=== PATIENT | female | born 1950 | race Caucasian/White ===

== ENCOUNTER 2019-06-06 12:08 | Outpatient (CLI) | payer MEDICARE, SELFPAY ==
--- NOTE | 2019-06-06 14:42 | MM_ITS ---
WS: [id number] DIAGNOSTIC BILATERAL DIGITAL MAMMOGRAM WITH CAD LEFT breast ultrasound, limited HISTORY: LT BREAST CYST COMPARISON: 12/15/2018, 06/10/2018, 05/12/2018, 04/28/2017 TECHNIQUE: Bilateral craniocaudad, mediolateral oblique, and mediolateral views are submitted. Spot c ompression view LEFT cc and MLO. Computer aided detection utilized. Breast composition: There are scattered areas of fibroglandular density. Scattered calcifications. Bi lateral asymmetries within each breast. Ovoid nodule in the anterior LEFT breast near 2:00 is again i dentified. No increase in size of any nodules. Largest nodule measures 7 mm. LEFT breast ultrasound, limited. Ultrasound is directed to the upper outer quadrant of the LEFT breast. There are multiple cysts and c omplex cystic nodules. Hypoechoic nodule which is predominantly solid at 2:00, 3 cm from the nipple m easures 8 x 3 x 7 mm. Corresponds to the abnormality seen on the recent mammogram. There is an additi onal more rounded solid nodule at 2:00, 2 cm from the nipple measuring 8 x 4 x 7 mm. Very hypoechoic taller than wide nodule near the area look 2:00 measures 3 x 2 x 2 mm. No increased vascularity in an y of these nodules. None of these nodules are increasing in size. MM/[place] [id number] IMPRESSION: BI-RADS: 3-Probably Benign FOLLOW UP: 6 Month Follow-up Recommend LEFT breast ultrasound follow-up in 6 months to the upper outer quadr ant. There are multiple nodules which are complex cystic to solid. No increase in size of these nodules. As there are multiple nodules of similar characterist ics these are likely benign. There are some concerning features. Recommend cont inued follow-up. Ultrasound follow-up in 6 months is recommended. If there is a ny increase in size of the solid nodules they should be biopsied by ultrasound.
== END 2019-06-06 12:09 | disposition home or self-care (01) ==
LOC: RADSHAW 12:08
PROVIDERS: Family Provider Nurse Practitioner; PCP Nurse Practitioner; Visit Provider Nurse Practitioner
DX: N60.02 Solitary cyst of left breast (principal)
CPT/HCPCS: 76642; 77066

== ENCOUNTER → 2019-06-26 14:46 | Outpatient (BNVA) | payer MEDICARE, SELFPAY | PROVIDERS: Family Provider Nurse Practitioner; PCP Nurse Practitioner; Visit Provider Nurse Practitioner | DX: E11.9 Type 2 diabetes mellitus without complications (principal); E55.9 Vitamin D deficiency, unspecified; I10 Essential (primary) hypertension; F41.9 Anxiety disorder, unspecified; J30.1 Allergic rhinitis due to pollen; Z23 Encounter for immunization; M19.079 Primary osteoarthritis, unspecified ankle and foot; E78.5 Hyperlipidemia, unspecified; M54.16 Radiculopathy, lumbar region; E03.9 Hypothyroidism, unspecified | CPT/HCPCS: 80053; 82306; 83036 ==

== ENCOUNTER → 2019-12-08 09:17 | Outpatient (BNVA) | payer MEDICARE, SELFPAY | PROVIDERS: Family Provider Nurse Practitioner; PCP Nurse Practitioner; Visit Provider Nurse Practitioner | DX: I10 Essential (primary) hypertension (principal); F41.9 Anxiety disorder, unspecified; J30.1 Allergic rhinitis due to pollen; M19.079 Primary osteoarthritis, unspecified ankle and foot; E55.9 Vitamin D deficiency, unspecified; E78.5 Hyperlipidemia, unspecified; M54.16 Radiculopathy, lumbar region; E03.9 Hypothyroidism, unspecified; E78.1 Pure hyperglyceridemia; E11.65 Type 2 diabetes mellitus with hyperglycemia; F32.9 Major depressive disorder, single episode, unspecified; R82.90 Unspecified abnormal findings in urine | CPT/HCPCS: 80053; 80061; 81003; 82306; 83036; 84443; 87077; 87086; 87184; 87186 ==

== ENCOUNTER 2019-12-22 10:15 | Outpatient (CLI) | payer MEDICARE, SELFPAY ==
--- NOTE | 2019-12-22 11:00 | US_ITS ---
WS: [id number] ULTRASOUND BREAST LEFT TECHNIQUE: Ultrasound left breast focused area of concern. CLINICAL INFORMATION: recheck left breast COMPARISON: June 06, 2019 and . June 08, 2018 FINDINGS: Ultrasound left breast upper-outer quadrant. Again seen are several cystic and solid hypoechoic lesio ns with a few septations. Largest solid lesion measures approximately 8.2 x 3.6 x 7.3 mm at the 2:00 position 2 cm from the nip ple. This is unchanged since June 06, 2019. Remainder of the lesions have a cystic or complex cys tic appearance. Recommend additional six-month ultrasound follow-up to confirm stability. US/US breast LT limited* [id number] IMPRESSION: BI-RADS 3 probably benign Recommend 6 month left breast ultrasound follow-up
== END 2019-12-22 10:16 | disposition home or self-care (01) ==
LOC: RADSHAW 10:17
PROVIDERS: PCP Nurse Practitioner; Visit Provider Nurse Practitioner
DX: R92.8 Other abnormal and inconclusive findings on diagnostic imaging of breast (principal); N60.02 Solitary cyst of left breast
CPT/HCPCS: 76642

== ENCOUNTER → 2020-05-21 13:59 | Outpatient (BNVA) | payer MEDICARE, SELFPAY | PROVIDERS: PCP Nurse Practitioner; Visit Provider Nurse Practitioner | DX: E11.65 Type 2 diabetes mellitus with hyperglycemia (principal); I10 Essential (primary) hypertension; J30.1 Allergic rhinitis due to pollen; F41.9 Anxiety disorder, unspecified; E55.9 Vitamin D deficiency, unspecified; E03.9 Hypothyroidism, unspecified; M19.079 Primary osteoarthritis, unspecified ankle and foot; E78.1 Pure hyperglyceridemia; M54.16 Radiculopathy, lumbar region | CPT/HCPCS: 80053; 81000; 82306; 83036; 84443 ==

== ENCOUNTER 2020-07-10 14:05 | Outpatient (CLI) | payer MEDICARE, MEDICAID, SELFPAY ==
--- NOTE | 2020-07-10 14:13 | MM_ITS ---
WS: [id number] DIAGNOSTIC BILATERAL DIGITAL MAMMOGRAM WITH CAD LEFT breast ultrasound, limited HISTORY: N60.02 - Solitary cyst of left breast COMPARISON: 06/06/2019, 12/15/2018, 05/12/2018, 06/10/2018 TECHNIQUE: Bilateral craniocaudad, mediolateral oblique, and mediolateral views are submitted. Spot c ompression LEFT MLO. Computer aided detection utilized. Breast composition: There are scattered areas of fibroglandular density. Scattered calcifications within each breast. 6 mm asymmetry seen in the upper outer quadrant of the L EFT breast anteriorly corresponds to the area seen on the prior exams. No increase in size. No new no dules. LEFT breast ultrasound, limited. There are several complex cystic nodules in the LEFT breast at 2:00 which have been previously descri bed. The largest measures 6 x 8 x 4 mm and very similar in appearance to the prior study. There is no shadowing. Suspect these changes are all related to fibrocystic breast disease. MM/[place] [id number] IMPRESSION: BI-RADS: 2-Benign FOLLOW UP: 1 Year Follow-up Asymmetries and complex cystic nodules in the LEFT breast have been stable sin e 06/10/2018. Due to long-term stability recommend yearly annual mammographic fo llow-up.
--- NOTE | 2020-07-10 15:00 | US_ITS ---
WS: [id number] DIAGNOSTIC BILATERAL DIGITAL MAMMOGRAM WITH CAD LEFT breast ultrasound, limited HISTORY: N60.02 - Solitary cyst of left breast COMPARISON: 06/06/2019, 12/15/2018, 05/12/2018, 06/10/2018 TECHNIQUE: Bilateral craniocaudad, mediolateral oblique, and mediolateral views are submitted. Spot c ompression LEFT MLO. Computer aided detection utilized. Breast composition: There are scattered areas of fibroglandular density. Scattered calcifications within each breast. 6 mm asymmetry seen in the upper outer quadrant of the L EFT breast anteriorly corresponds to the area seen on the prior exams. No increase in size. No new no dules. LEFT breast ultrasound, limited. There are several complex cystic nodules in the LEFT breast at 2:00 which have been previously descri bed. The largest measures 6 x 8 x 4 mm and very similar in appearance to the prior study. There is no shadowing. Suspect these changes are all related to fibrocystic breast disease. US/US breast LT limited* [id number] IMPRESSION: BI-RADS: 2-Benign FOLLOW UP: 1 Year Follow-up Asymmetries and complex cystic nodules in the LEFT breast have been stable sin e 06/10/2018. Due to long-term stability recommend yearly annual mammographic fo llow-up.
== END 2020-07-10 14:06 | disposition home or self-care (01) ==
LOC: RADSHAW 14:11
PROVIDERS: PCP Nurse Practitioner; Visit Provider Nurse Practitioner
DX: N60.02 Solitary cyst of left breast (principal); N64.89 Other specified disorders of breast; N63.21 Unspecified lump in the left breast, upper outer quadrant
CPT/HCPCS: 76642; 77066

== ENCOUNTER → 2020-08-20 13:17 | Outpatient (BNVA) | payer MEDICARE, MEDICAID, SELFPAY | PROVIDERS: PCP Nurse Practitioner; Visit Provider Nurse Practitioner | DX: E11.65 Type 2 diabetes mellitus with hyperglycemia (principal); E03.9 Hypothyroidism, unspecified; E55.9 Vitamin D deficiency, unspecified; I10 Essential (primary) hypertension; J30.1 Allergic rhinitis due to pollen; F41.9 Anxiety disorder, unspecified; M19.079 Primary osteoarthritis, unspecified ankle and foot; E78.1 Pure hyperglyceridemia; M54.16 Radiculopathy, lumbar region | CPT/HCPCS: 80053; 80061; 82306; 83036; 84443 ==

== ENCOUNTER → 2020-11-19 14:34 | Outpatient (BNVA) | payer MEDICARE, MEDICAID, SELFPAY | PROVIDERS: PCP Nurse Practitioner; Visit Provider Nurse Practitioner | DX: E03.9 Hypothyroidism, unspecified (principal); E11.65 Type 2 diabetes mellitus with hyperglycemia; E55.9 Vitamin D deficiency, unspecified; M19.079 Primary osteoarthritis, unspecified ankle and foot; J30.1 Allergic rhinitis due to pollen; I10 Essential (primary) hypertension; F41.9 Anxiety disorder, unspecified; E78.1 Pure hyperglyceridemia | CPT/HCPCS: 80053; 80061; 82306; 83036; 84443; 85025 ==

== ENCOUNTER → 2021-02-17 14:01 | Outpatient (BNVA) | payer MEDICARE, MEDICAID, SELFPAY | PROVIDERS: PCP Nurse Practitioner; Visit Provider Nurse Practitioner | DX: E11.65 Type 2 diabetes mellitus with hyperglycemia (principal) | CPT/HCPCS: 80053; 83036 ==

== ENCOUNTER → 2021-04-01 10:52 | Outpatient (BNVA) | payer MEDICARE, SELFPAY | PROVIDERS: PCP Nurse Practitioner; Visit Provider Nurse Practitioner | DX: Z20.822 Contact with and (suspected) exposure to COVID-19 (principal) | CPT/HCPCS: 87635 ==

== ENCOUNTER 2021-04-03 08:28 | Outpatient (CLI) | payer MEDICARE, SELFPAY ==
[2021-04-03 08:39] VITALS: BP 120/72; PULSE 72; RESP 21; TEMP 36.4; O2SAT 95; BMI 35.7
[2021-04-03 10:00] VITALS: BP 108/70; PULSE 63; RESP 17; TEMP 36.2; O2SAT 93
[2021-04-03 10:53] VITALS: BP 98/60; PULSE 70; RESP 17; TEMP 36.2; O2SAT 95
== END 2021-04-03 08:29 | disposition home or self-care (01) ==
PROVIDERS: PCP Nurse Practitioner; Visit Provider Nurse Practitioner
DX: U07.1 COVID-19 (principal)
CPT/HCPCS: 96365

== ENCOUNTER → 2021-06-09 14:55 | Outpatient (BNVA) | payer MEDICARE, MEDICAID, SELFPAY | PROVIDERS: PCP Nurse Practitioner; Visit Provider Nurse Practitioner | DX: E11.65 Type 2 diabetes mellitus with hyperglycemia (principal); I10 Essential (primary) hypertension; J43.9 Emphysema, unspecified; M19.079 Primary osteoarthritis, unspecified ankle and foot; F41.9 Anxiety disorder, unspecified; E55.9 Vitamin D deficiency, unspecified; E78.1 Pure hyperglyceridemia; M54.16 Radiculopathy, lumbar region; E03.9 Hypothyroidism, unspecified; J30.1 Allergic rhinitis due to pollen | CPT/HCPCS: 80053; 80061; 82306; 83036; 84443 ==

== ENCOUNTER → 2021-08-20 10:42 | Outpatient (BNVA) | payer MEDICARE, MEDICAID, SELFPAY | PROVIDERS: PCP Nurse Practitioner; Visit Provider Nurse Practitioner | DX: E11.65 Type 2 diabetes mellitus with hyperglycemia (principal); E55.9 Vitamin D deficiency, unspecified; E03.9 Hypothyroidism, unspecified | CPT/HCPCS: 80053; 80061; 82306; 83036; 84443 ==

== ENCOUNTER 2021-09-04 13:39 | Outpatient (CLI) | payer MEDICARE, SELFPAY ==
--- NOTE | 2021-09-04 13:54 | MM_ITS ---
WS: [id number] Bilateral screening 3D tomosynthesis digital mammogram, 09/04/2021 Clinical Data: SCREENING Comparison: 07/10/2020, 06/06/2019, 12/15/2018, 06/10/2018, 05/12/2018, 04/28/2017, 03/25/2016, 02/26/2015, 02/13/2015, 12/28/2013, 09/15/2012, 04/29/2011, 04/09/2011, 02/04/2029, 01/18/2028, 01/07/2007. Findings: The breast parenchymal pattern shows glandular tissue No spiculated masses or clustered calcification s are seen. There are no secondary signs of carcinoma. There are scattered benign calcifications in b oth breasts more on the right. There are multiple moles on the breasts. MM/[place] [id number] Impression: 1. Negative bilateral mammogram unchanged. 2. Recommend annual screening mammograms. BIRADS: 1-Negative FOLLOW UP: 1 Year Follow-up The CAD color checker roving or yarn was used.
== END 2021-09-04 13:40 | disposition home or self-care (01) ==
PROVIDERS: PCP Nurse Practitioner; Visit Provider Nurse Practitioner
DX: Z12.31 Encounter for screening mammogram for malignant neoplasm of breast (principal)
CPT/HCPCS: 77063; 77067

== ENCOUNTER → 2021-12-16 10:52 | Outpatient (BNVA) | payer MEDICARE, MEDICAID, SELFPAY | PROVIDERS: PCP Nurse Practitioner; Visit Provider Nurse Practitioner | DX: E11.65 Type 2 diabetes mellitus with hyperglycemia (principal); I10 Essential (primary) hypertension; E55.9 Vitamin D deficiency, unspecified; J43.9 Emphysema, unspecified; M19.079 Primary osteoarthritis, unspecified ankle and foot; F41.9 Anxiety disorder, unspecified; E78.1 Pure hyperglyceridemia; M54.16 Radiculopathy, lumbar region; E03.9 Hypothyroidism, unspecified; J30.1 Allergic rhinitis due to pollen | CPT/HCPCS: 80053; 80061; 82306; 83036; 84443; 85025 ==

== ENCOUNTER → 2022-03-10 13:45 | Outpatient (BNVA) | payer MEDICARE, MEDICAID, SELFPAY | PROVIDERS: PCP Nurse Practitioner; Visit Provider Nurse Practitioner | DX: E03.9 Hypothyroidism, unspecified (principal); J43.9 Emphysema, unspecified; E55.9 Vitamin D deficiency, unspecified; E11.65 Type 2 diabetes mellitus with hyperglycemia | CPT/HCPCS: 80053; 80061; 82306; 83036; 84443 ==

== ENCOUNTER → 2022-06-02 13:16 | Outpatient (BNVA) | payer MEDICARE, MEDICAID, SELFPAY | PROVIDERS: PCP Nurse Practitioner; Visit Provider Nurse Practitioner | DX: E03.9 Hypothyroidism, unspecified (principal); E11.65 Type 2 diabetes mellitus with hyperglycemia; E55.9 Vitamin D deficiency, unspecified | CPT/HCPCS: 80053; 80061; 82306; 83036; 84443 ==

== ENCOUNTER → 2022-06-23 09:41 | Outpatient (BNVA) | payer MEDICARE, MEDICAID, SELFPAY | PROVIDERS: PCP Nurse Practitioner; Visit Provider Nurse Practitioner | DX: M19.079 Primary osteoarthritis, unspecified ankle and foot (principal); M25.561 Pain in right knee; M25.562 Pain in left knee; M54.16 Radiculopathy, lumbar region | CPT/HCPCS: 85025; 85651; 86038; 86140; 86431 ==

== ENCOUNTER → 2022-08-25 13:53 | Outpatient (BNVA) | payer MEDICARE, MEDICAID, SELFPAY | PROVIDERS: PCP Nurse Practitioner; Visit Provider Nurse Practitioner | DX: E11.65 Type 2 diabetes mellitus with hyperglycemia (principal) | CPT/HCPCS: 80053; 83036 ==

== ENCOUNTER → 2022-09-09 10:39 | Outpatient (BNVA) | payer MEDICARE, MEDICAID, SELFPAY | PROVIDERS: PCP Nurse Practitioner; Visit Provider Internal Medicine Rheumatology | DX: M19.90 Unspecified osteoarthritis, unspecified site (principal); Z79.899 Other long term (current) drug therapy; Z11.59 Encounter for screening for other viral diseases; M45.6 Ankylosing spondylitis lumbar region; M51.37 Other intervertebral disc degeneration, lumbosacral region; M48.07 Spinal stenosis, lumbosacral region; M47.816 Spondylosis without myelopathy or radiculopathy, lumbar region | CPT/HCPCS: 36415; 72100; 72202; 73130; 73562; 73630; 82306; 85651; 86140; 86200; 86480; 86704; 86803; 86812; 87340; 99204 ==

== ENCOUNTER 2022-11-06 14:50 | Outpatient (CLI) | payer MEDICARE, MEDICAID, SELFPAY ==
--- NOTE | 2022-11-06 14:56 | MM_ITS ---
WS: [id number] BILATERAL 3D TOMOSYNTHESIS DIGITAL SCREENING MAMMOGRAPHY WITH CAD CLINICAL INFORMATION: SCREENING HISTORY: Screening mammogram. No current complaints. COMPARISON: 2021 TECHNIQUE: Bilateral CC and MLO views. FINDINGS: Scattered fibroglandular densities bilaterally. No suspicious focal mass, asymmetry, calcifications, or architectural distortion. No evidence of malignancy. Incidental punctate calcifications. Lucent ce ntered calcifications. MM/[place] [id number] IMPRESSION: BI-RADS: 2-Benign FOLLOW UP: 1 Year Follow-up Recommend return to annual screening mammography.
== END 2022-11-06 14:51 | disposition home or self-care (01) ==
LOC: RAD 14:52 → MOBLMAM 14:55
PROVIDERS: PCP Nurse Practitioner; Visit Provider Nurse Practitioner
DX: Z12.31 Encounter for screening mammogram for malignant neoplasm of breast (principal)
CPT/HCPCS: 77063; 77067

== ENCOUNTER → 2022-11-11 13:46 | Outpatient (BNVA) | payer MEDICARE, MEDICAID, SELFPAY | PROVIDERS: PCP Nurse Practitioner; Visit Provider Internal Medicine Rheumatology | DX: Z82.69 Family history of other diseases of the musculoskeletal system and connective tissue; Z79.899 Other long term (current) drug therapy; M19.079 Primary osteoarthritis, unspecified ankle and foot; M25.561 Pain in right knee; M25.562 Pain in left knee; M54.16 Radiculopathy, lumbar region; M25.50 Pain in unspecified joint; Z15.89 Genetic susceptibility to other disease; L40.9 Psoriasis, unspecified; M25.512 Pain in left shoulder | CPT/HCPCS: 36415; 72072; 72100; 73030; 73060; 73562; 80076; 82565; 85025; 86140; 99214 ==

== ENCOUNTER → 2022-11-19 16:18 | Outpatient (BNVA) | payer MEDICARE, MEDICAID, SELFPAY | PROVIDERS: PCP Nurse Practitioner; Visit Provider Nurse Practitioner | DX: E11.65 Type 2 diabetes mellitus with hyperglycemia (principal); E55.9 Vitamin D deficiency, unspecified | CPT/HCPCS: 80053; 80061; 82306; 83036; 84443; 85025 ==

== ENCOUNTER 2022-12-06 23:52 | Inpatient (IN) | payer MEDICARE, MEDICAID, SELFPAY ==
[2022-12-07] VITALS (38 sets, daily range): BP systolic 104–189; BP diastolic 60–111; PULSE 73–93; RESP 16–28; TEMP 36.4–37.3; O2SAT 92–98; BMI 34.7
[2022-12-07 00:53] LABS: Alanine Aminotransferase 25 U/L (0-33); Albumin Level 4.3 g/dL (3.5-5.2); Alkaline Phosphatase 67 U/L (35-105); Anion Gap 23.2 (5-19); Aspartate Amino Transferase 31 U/L (0-32); Blood Urea Nitrogen 14 mg/dL (8-23); Calcium 9.6 mg/dL (8.5-10.5); Carbon Dioxide 21 mmol/L (22-29); Chloride 92 mmol/L (98-107); Globulin 3.3 g/dL (1.3-4.6); Glomerular Filtration Rate 98.8 mL/min (90-130); Glucose 309 mg/dL (65-115); Osmolality Calculated 286 mOsm/kg (285-295); Potassium 4.2 mmol/L (3.5-5.1); Sodium 132 mmol/L (136-145); Total Bilirubin 0.6 mg/dL (0.15-1.2); Total Protein 7.6 g/dL (6.6-8.7)
--- NOTE | 2022-12-07 01:01 | CTR_ITS ---
PROCEDURE INFORMATION: Exam: CT Abdomen And Pelvis With Contrast Exam date and time: 12/07/2022 1:26 AM Age: 71 years old Clinical indication: Nausea and vomiting; Abdominal pain; Prior surgery; Surgery date: 6+ months; Surgery type: Appy. Hysterectomy. Patient HX: Periumbilical pain with n/v. History of ventral hernia. ; Additional info: Abd pain, vomiting, ventral hernia TECHNIQUE: Imaging protocol: Computed tomography of the abdomen and pelvis with contrast. Radiation optimization: All CT scans at this facility use at least one of these dose optimization techniques: automated exposure control; mA and/or kV adjustment per patient size (includes targeted exams where dose is matched to clinical indication); or iterative reconstruction. Contrast material: OMNI 350; Contrast volume: 100 ml; Contrast route: INTRAVENOUS (IV); REPORTING DATA: Count of CT and Cardiac NM exams in prior 12 months: This patient has received 0 known CTs and 0 known cardiac nuclear medicine studies in the 12 months prior to the current study. COMPARISON: CR XR hip LT 2-3V wo/w pel* [id number] 10/26/2017 3:14 PM RADIATION DOSE METRICS: Total DLP (mGy-cm): 925.43 FINDINGS: Lungs: The visualized lung bases are clear. Liver: Liver is large and steatotic. Gallbladder and bile ducts: Absent gallbladder. Pancreas: Unremarkable with no suspicious mass. No ductal dilation. Spleen: The spleen is not enlarged. No suspicious enhancing mass is noted. Adrenal glands: Normal. No mass. Kidneys and ureters: Few minute left renal cysts. No enhancing renal mass or hydronephrosis. Stomach and bowel: Mild sigmoid diverticulosis. Complex ventral hernia seen, which contains a left-sided fat hernia and adjacent right-sided bowel hernia. This appears to be causing a bifc-cg-gyaxpafu grade obstruction and may be incarcerated. The neck is about 3.4 cm wide. Small bowel loops show wall thickening in their mid to distal portion. There are also dilated up to about 3.8 cm. Appendix: No evidence of appendicitis. Intraperitoneal space: Right lower quadrant mesenteric nodularity seen with some calcification. Nodules measure up to about 2.4 cm in size. Retroperitoneal space: Retroperitoneal clips are present. Correlate with surgical history. Vasculature: No AAA or acute vascular lesion identified. Lymph nodes: No enlarged lymph nodes. Urinary bladder: Unremarkable as visualized. Reproductive: Absent uterus. Bones/joints: No acute fracture. Advanced lumbar spine DJD. A couple of levels of minimal chronic listhesis are probably related to facet arthropathy. Soft tissues: Complex ventral hernia seen, which contains a left-sided fat hernia and adjacent right-sided bowel hernia. This appears to be causing a mngs-gr-tmegxnqr grade obstruction and may be incarcerated. The neck is about 3.4 cm wide. Small bowel loops show wall thickening in their mid to distal portion. There are also dilated up to about 3.8 cm. Previous abdominal wall operative findings as well, which does suggest a recurrent hernia at this time. CT/CT abdomen pelvis w con* [id number] IMPRESSION: 1. Complex ventral small bowel containing hernia as described, with evidence of a associated enteritis and small bowel obstruction. Advise surgical consultation. 2. No abscess or free air. 3. Postop findings as described with a few partially calcified mesenteric nodules. These may be due to treated disease such as carcinoid. This requires correlation. 4. Multiple chronic findings above. 5. Call to provider has been initiated. COMMENTS: Consistent with the [employer]'s Incidental Findings Committee white paper (J Am Carrie Radiol 2018): Any incidental renal lesion less than 1 cm or classified as too small to characterize, or any incidental cystic renal lesion characterized as simple-appearing, is likely benign. No follow-up imaging is recommended for these lesions per consensus recommendations based on imaging criteria.
[2022-12-07 01:04] LABS: C Reactive Protein 60.7 mg/L (0.0-4.9); Lipase 50 U/L (13-60)
[2022-12-07] MEDS: sodium chloride 0.9% 1,000 ML 999 ML IV (01:17)
[2022-12-07] MEDS: morphine 4 mg/mL SDV 1 mL 2 MG IVP (01:17)
[2022-12-07] MEDS: ondansetron 2 mg/ML SDV 2 mL 4 MG IVP ×3 (01:17→08:04)
[2022-12-07] MEDS: iohexol 350 mg/mL 500 mL Btl (per mL) IV (01:27)
[2022-12-07 01:28] LABS: Basophils # 0.1 10^3/uL (0.0-0.1); Basophils % 0.5 %; Eosinophils % 0.1 %; Hematocrit 49.2 % (37.0-47.0); Hemoglobin 16.9 g/dL (11.5-15.3); Lymphocytes # 0.6 10^3/uL (0.8-4.8); Lymphocytes % 6.3 %; Mean Corpuscular HGB Conc 34.3 g/dL (30.0-36.0); Mean Corpuscular Hemoglobin 28.6 pg (28.0-34.0); Mean Corpuscular Volume 83.2 fl (81-99); Mean Platelet Volume 10.2 fL (7.4-10.4); Monocytes # 0.5 10^3/uL (0.2-0.9); Monocytes % 5.3 %; Neutrophils % 87.5 %; Nucleated Red Blood Cells % 0 %; Platelet Count 520 10^3/cmm (130-400); Red Blood Count 5.91 10^6/uL (4.1-5.3); Red Cell Distribution Width 12.5 % (12.1-15.1); White Blood Count 9.7 10^3/uL (4.0-10.0)
--- NOTE | 2022-12-07 01:58 | ED_ITS ---
HPI - Abdominal Pain General: Chief Complaint: Abdominal Pain Stated Complaint: abd pain History of Present Illness: 71-year-old female who says she has been sick on and off for couple of weeks. She had vomiting and diarrhea that seem to go away. Today the vomiting came back. She has had several episodes of vomiting. No fever. No diarrhea now. No blood in the vomit. She has had periumbilical and epigastric pain associated with vomiting. She has a ventral hernia, and is concerned her family members. Associated Symptoms: Reports nausea and vomiting; Denies chills, diarrhea, fever(s) and hematochezia Review of Systems Const: Denies: fever(s), chills or body aches Eyes: Denies: change in vision Card: Denies: chest pain or palpitations Resp: Denies: dyspnea, productive cough, non-productive cough or wheezing GI: Reports: abdominal pain, nausea and vomiting; Denies: diarrhea or hematochezia : Denies: difficulty voiding Skin/Breast: Denies: rash Neuro: Denies: headache(s), weakness in extremities, dizziness or confusion PFSH ED PFSH: Medical History Adult hypothyroidism Allergic rhinitis due to pollen Anxiety and depression 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 Chronic left lumbar radiculopathy Chronic low back pain COPD (chronic obstructive pulmonary disease) with emphysema COVID-19 Diabetes mellitus with hyperglycemia, without long-term current use of insulin Enrolled in chronic care management Family history of ankylosing spondylitis HLA B27 (HLA B27 positive) Hyperlipidemia Hypertriglyceridemia Polyarthralgia Primary osteoarthritis, unspecified ankle and foot Psoriasis Vitamin D deficiency, unspecified Surgical History History of appendectomy History of hysterectomy for cancer History of tubal ligation Family History Father Cancer Diabetes CAD (coronary artery disease) Brother Diabetes Daughter Diabetes CAD (coronary artery disease) Rheumatoid arthritis Other Hypertension Denies family history of Lupus Psoriasis Social History Smoking and tobacco status: former smoker Quit status (tobacco): has quit using tobacco Second hand smoke exposure: No Smoking risk assessment/counseling performed?: No Alcohol intake: never Desire information about alcohol rehabilitation?: No Counseling given: No Substance/Drug Use: never Desire information about substance/drug rehabilitation?: No Counseling given: No Adopted: No Caregiver/support person: No Lives independently: Yes Household members: spouse Housing: House Marital status: Number of children: 3 service: No Current occupational status: unemployed Do you think of yourself as: Straight/Heterosexual Current gender identity: Female Physical Exam Const: COMMON NORMALS: no acute distress GENERAL APPEARANCE: cooperative; not ill appearing and not frail appearing HENMT: COMMON NORMALS: normocephalic, atraumatic and Normal external nose present HEAD & SCALP: normocephalic and atraumatic FACE & SINUS: normal facial exam and face symmetric NOSE: Normal external nose present Eye: COMMON NORMALS: Equal, round and reactive pupils present and EOMs intact bilaterally PUPIL: Yes Equal, round and reactive pupils present Neck/C-Spine: GENERAL: Yes trachea midline Chest: CHEST: Yes Symmetrical chest wall rise Resp: COMMON NORMALS: normal respiratory effort, No retractions, No use of accessory muscles and clear to auscultation bilaterally AUSCULTATION: clear to auscultation bilaterally Cardio: COMMON NORMALS: regular rate and regular rhythm RATE: regular rate RHYTHM: regular rhythm GI: AUSCULTATION: Yes normoactive bowel sounds PALPATION: Yes Firmness to palpation present (GI) (At hernia site), Yes Tenderness to palpation present (GI), No Guarding due to palpation present (GI) and No Rigid due to palpation : COMMON NORMALS: Yes no CVA tenderness BLADDER/KIDNEY EXAM: Yes no CVA tenderness Back/Pelvis: COMMON NORMALS: no CVA tenderness Extremity: COMMON NORMALS: no pedal edema Neuro: NIC COMA SCALE: document GCS findings [place] coma scale eye opening: Spontaneous [place] coma scale verbal response: Orientated Nic coma scale motor response: Obey commands Nic coma scale total score: 15 SENSORY EXAM: Yes extremities (intact) Psych: COMMON NORMALS: speech normal SPEECH: Yes normal speech Skin: COMMON NORMALS: no rashes or lesions noted GENERAL SKIN EXAM: no rashes or lesions noted Procedures Procedural Sedation Indication: other (Hernia reduction) ASA Class: II Preparation: groundwater monitoring technician applied, pulse oximeter, supplemental O2 applied, suction/airway equipment at bedside and IV secured Midazolam: IV Midazolam dose (mg): 1 Ketamine: IV Ketamine dose (mg): 140 Patient Tolerated Procedure: well and no complications Complications: none Course Vital Signs: Vital signs: Vital Signs Temperature 98.2 F 12/07/22 00:05 Pulse Rate 86 12/07/22 04:02 Respiratory Rate 16 12/07/22 04:02 Blood Pressure 124/73 12/07/22 04:02 Pulse Oximetry 97 12/07/22 04:02 Oxygen Delivery Me thod Nasal Cannula 12/07/22 04:02 Oxygen Flow Rate 3 12/07/22 04:02 MDM - Abdominal Pain Medical Decision Making 71-year-old female vomiting. White blood cell count is 9.7. Lactic is 3.1. Bicarbonate is 21. Sugar is 309. CT shows small bowel containing ventral hernia with associated enteritis and small bowel obstruction. The patient was mildly consciously sedated with ketamine and Versed. Hernia was partially reduced by myself. NG tube was placed and in position and put to intermittent wall suction. Spoke with surgery. He will see in consultation. Spoke with hospitalist service, they will admit. We will hold the patient in the ER until repeat lactic is resulted. Lab Data 12/07/22 00:15 12/07/22 00:15 Labs/Radiology: Radiology Impressions Abdomen/Pelvis CT 12/07/22 01:01 IMPRESSION: 1. Complex ventral small bowel containing hernia as described, with evidence of a associated enteritis and small bowel obstruction. Advise surgical consultation. 2. No abscess or free air. 3. Postop findings as described with a few partially calcified mesenteric nodules. These may be due to treated disease such as carcinoid. This requires correlation. 4. Multiple chronic findings above. 5. Call to provider has been initiated. COMMENTS: Consistent with the [employer]'s Incidental Findings Committee white paper (J Am Carrie Radiol 2018): Any incidental renal lesion less than 1 cm or classified as too small to characterize, or any incidental cystic renal lesion characterized as simple-appearing, is likely benign. No follow-up imaging is recommended for these lesions per consensus recommendations based on imaging criteria. ADDENDUM: 12/07/22 0221 THIS REPORT CONTAINS FINDINGS THAT MAY BE CRITICAL TO PATIENT CARE. The findings were verbally communicated via telephone conference at 2:19 AM CDT on 12/07/2022 with CHAUNCEY GARDNER. The findings were acknowledged and understood. Chest X-Ray 12/07/22 03:05 IMPRESSION: NGT in place. Laboratory Results WBC 9.7 10^3/uL (4.0-10.0) 12/07/22 00:15 RBC 5.91 10^6/uL (4.1-5.3) H 12/07/22 00:15 Hgb 16.9 g/dL (11.5-15.3) H 12/07/22 00:15 Hct 49.2 % (37.0-47.0) H 12/07/22 00:15 MCV 83.2 fl (81-99) 12/07/22 00:15 MCH 28.6 pg (28.0-34.0) 12/07/22 00:15 MCHC 34.3 g/dL (30.0-36.0) 12/07/22 00:15 RDW 12.5 % (12.1-15.1) 12/07/22 00:15 Plt Count 520 10^3/cmm (130-400) H 12/07/22 00:15 MPV 10.2 fL (7.4-10.4) 12/07/22 00:15 Neut % (Auto) 87.5 % 12/07/22 00:15 Lymph % (Auto) 6.3 % 12/07/22 00:15 [place] % (Auto) 5.3 % 12/07/22 00:15 Eos % (Auto) 0.1 % 12/07/22 00:15 Baso % (Auto) 0.5 % 12/07/22 00:15 Neut # (Auto) 8.50 10^3/uL (1.8-7.7) H 12/07/22 00:15 Lymph # (Auto) 0.6 10^3/uL (0.8-4.8) L 12/07/22 00:15 [place] # (Auto) 0.5 10^3/uL (0.2-0.9) 12/07/22 00:15 Eos # (Auto) 0.0 10^3/uL (0.0-0.8) 12/07/22 00:15 Baso # (Auto) 0.1 10^3/uL (0.0-0.1) 12/07/22 00:15 Nucleated RBC % (auto) 0 % 12/07/22 00:15 Nucleated RBCs # 0.0 /100WBC 12/07/22 00:15 Sodium 132 mmol/L (136-145) L 12/07/22 00:15 Potassium 4.2 mmol/L (3.5-5.1) 12/07/22 00:15 Chloride 92 mmol/L (98-107) L 12/07/22 00:15 Carbon Dioxide 21 mmol/L (22-29) L 12/07/22 00:15 Anion Gap 23.2 (5-19) H 12/07/22 00:15 BUN 14 mg/dL (8-23) 12/07/22 00:15 Creatinine 0.6 mg/dL (0.5-0.9) 12/07/22 00:15 GFR Calculation 98.8 mL/min (90-130) 12/07/22 00:15 Glucose 309 mg/dL (65-115) H 12/07/22 00:15 Calculated Osmolality 286 mOsm/kg (285-295) 12/07/22 00:15 Lactic Acid 3.1 mmol/L (0.5-2.2) H 12/07/22 00:15 Calcium 9.6 mg/dL (8.5-10.5) 12/07/22 00:15 Total Bilirubin 0.6 mg/dL (0.15-1.2) 12/07/22 00:15 AST 31 U/L (0-32) 12/07/22 00:15 ALT 25 U/L (0-33) 12/07/22 00:15 Alkaline Phosphatase 67 U/L (35-105) 12/07/22 00:15 C-Reactive Protein 60.7 mg/L (0.0-4.9) H 12/07/22 00:15 Total Protein 7.6 g/dL (6.6-8.7) 12/07/22 00:15 Albumin 4.3 g/dL (3.5-5.2) 12/07/22 00:15 Globulin 3.3 g/dL (1.3-4.6) 12/07/22 00:15 Lipase 50 U/L (13-60) 12/07/22 00:15 Discharge Plan Discharge Patient Disposition: Admitted As Inpatient Clinical Impression: Small bowel obstruction, Ventral hernia Condition: Serious Prescriptions: No Action Centrum Silver 400-250 mcg tablet,chewable 1 tab PO ONCE aspirin 81 mg tablet,chewable 81 mg PO DAILY zinc 50 mg tablet 50 mg PO DAILY ascorbic acid (vitamin C) 500 mg tablet 500 mg PO DAILY budesonide [Pulmicort] 0.5 mg/2 mL suspension for nebulization 0.5 mg inhalation BID Qty: 60 0RF levalbuterol HCl [Xopenex] 0.63 mg/3 mL solution for nebulization 0.63 mg inhalation TID Qty: 75 2RF clobetasol 0.05 % cream 1 applic topical BID 14 Days Qty: 50 2RF amlodipine 5 mg tablet 5 mg PO QDAY Qty: 30 2RF atenolol 50 mg tablet 50 mg PO BID Qty: 60 2RF budesonide-formoterol [Symbicort] 80-4.5 mcg/actuation HFA aerosol inhaler 2 puff inhalation Q12H Qty: 10.2 2RF celecoxib 100 mg capsule 100 mg PO BID Qty: 60 2RF citalopram [Celexa] 20 mg tablet 20 mg PO BID Qty: 60 2RF ergocalciferol (vitamin D2) 1,250 mcg (50,000 unit) capsule 1,250 mcg PO .weekly Qty: 4 2RF fenofibrate nanocrystallized [Tricor] 145 mg tablet 145 mg PO DAILY Qty: 30 2RF furosemide [Lasix] 20 mg tablet 20 mg PO QAM Qty: 30 2RF gabapentin 800 mg tablet 800 mg PO TID Qty: 90 2RF hydroxyzine pamoate 25 mg capsule 25 mg PO TID PRN (Reason: anxiety) Qty: 90 2RF levothyroxine 50 mcg tablet 50 mcg PO DAILY Qty: 30 2RF loratadine [Claritin] 10 mg tablet 10 mg PO DAILY Qty: 30 2RF montelukast [Singulair] 10 mg tablet 10 mg PO DAILY Qty: 30 2RF potassium chloride 10 mEq capsule, extended release 10 meq PO DAILY Qty: 30 2RF Ozempic 1 mg/dose (4 mg/3 mL) pen injector 1 mg SUBCUT .weekly Qty: 3 2RF (DME) blood-glucose meter [Pureshield Ultra2 Meter] Kit See Rx Instructions .Route Qty: 1 0RF Rx Instructions: As directed (DME) OneTouch Ultra Test Strip See Rx Instructions .Route Qty: 100 5RF Rx Instructions: one daily leflunomide 20 mg tablet 20 mg PO DAILY Qty: 30 3RF Referrals: Karina Funez, [facility] [Primary Care Provider] - Coding Level of Care Code ED Bilingual Patient Support Caseworker for Marysol Muniz
[2022-12-07] MEDS: midazolam 1 mg/mL INJ 2 mL IVP (02:51)
--- NOTE | 2022-12-07 03:05 | XRR_ITS ---
PROCEDURE INFORMATION: Exam: XR Chest Exam date and time: 12/07/2022 3:09 AM Age: 71 years old Clinical indication: Device placement; Ng tube; Patient HX: Check S/P ng placement; Additional info: Nasogastric tube TECHNIQUE: Imaging protocol: Radiologic exam of the chest. Views: 1 view. COMPARISON: CT chest wo con [id number] 03/02/2019 3:06 PM FINDINGS: Tubes, catheters and devices: NGT in place, it coils and stomach. Lungs: Gfji-odqglgw-ibct-right lung base atelectasis or scarring likely. The recent abdomen/pelvis CT showed no lung base infiltrate. Pleural spaces: No pneumothorax. Heart/Mediastinum: Heart is large. Bones/joints: Unremarkable. Organs: Absent gallbladder. XR/XR chest 1V portable [id number] IMPRESSION: NGT in place.
[2022-12-07 03:39] LABS: Lactic Sepsis W/Reflex 3.1 mmol/L (0.5-2.2)
[2022-12-07] MEDS: sodium chloride 0.9% 1,000 ML 150 ML IV (04:46)
[2022-12-07 05:01] LABS: Lactic Sepsis W/Reflex 1.6 mmol/L (0.5-2.2)
--- NOTE | 2022-12-07 06:40 | PM.HP ---
Providers/Chief Complaint Admitting Physician: Heidi Peterson MD Primary Care Provider: Karina Funez, BRODERICK-C Chief Complaint: abd pain History of Present Illness Linda Kelly is a 71 year old female who presented to the emergency room with chief complaint of abdominal pain. She has had a ventral hernia for some time. Every now and then it will protrude but usually reduces and she does not think much about it. Over the last couple of weeks it has been protruding more frequently and she has noticed some abdominal discomfort. The last couple of days this has significantly worsened. Pain was rated severe. She was having vomiting. No blood was noted in the vomitus. Her last bowel movement was maybe Wednesday or of last week. She has chronic constipation so that is not unusual for her. She does not know if she has even been passing any flatus because she has been vomiting so much. With the pain and vomiting she came into the emergency room for evaluation. ER physician was able to partially reduce the ventral hernia. Initial lactate was 3.0. Case was discussed with Dr. Gatica on-call for surgery who will see her. She has had previous hysterectomy, appendectomy and tubal ligation. The ventral hernia appeared, she thinks, after her hysterectomy. No recent new complaints of chest pain. She has been short of breath with the nausea. She has a history of psoriasis on leflunomide chronically with celecoxib. She is chronically on beta-blockade, amlodipine, diuretic therapy and cholesterol medicine. She was unable to keep medications down due to her vomiting. She has not had previous complications from anesthesia or surgeries. She is on Ozempic for her diabetes. She has a history of coronary calcifications noted on CT imaging which is being managed medically. She is being admitted to hospitalist service. Review of Systems General: Reports: Other (ROS as per HPI or as otherwise noted here) Medications/Allergies Home Medications Medication Instructions Recorded Confirmed Last Taken Type multivit with min-folic 1 tab PO QAM 04/25/19 12/07/22 Unknown History acid-lutein 400 mcg-250 mcg chewable tablet (Centrum Silver) ascorbic acid (vitamin C) 500 mg 500 mg PO QAM 10/16/20 12/07/22 Unknown History tablet aspirin 81 mg chewable tablet 81 mg PO QAM 10/16/20 12/07/22 Unknown History atenolol 50 mg tablet 50 mg PO BID #60 tabs 11/19/22 12/07/22 Unknown Rx blood sugar diagnostic (OneTouch #100 ea 11/19/22 12/07/22 Unknown Rx Ultra Test strips) blood-glucose meter (OneTouch #1 ea 11/19/22 12/07/22 Unknown Rx Ultra2 Meter kit) celecoxib 100 mg capsule 100 mg PO BID #60 caps 11/19/22 12/07/22 Unknown Rx citalopram 20 mg tablet (Celexa) 20 mg PO BID #60 tabs 11/19/22 12/07/22 Unknown Rx furosemide 20 mg tablet (Lasix) 20 mg PO QAM #30 tabs 11/19/22 12/07/22 Unknown Rx gabapentin 800 mg tablet 800 mg PO TID #90 tabs 11/19/22 12/07/22 Unknown Rx hydroxyzine pamoate 25 mg capsule 25 mg PO TID PRN anxiety #90 caps 11/19/22 12/07/22 Unknown Rx amlodipine 5 mg tablet 5 mg PO QPM 12/07/22 12/07/22 Unknown History budesonide 0.5 mg/2 mL suspension 0.5 mg inhalation BID PRN unknown 12/07/22 12/07/22 Unknown History for nebulization (Pulmicort) budesonide-formoterol HFA 80 2 puff inhalation Q12H PRN unknown 12/07/22 12/07/22 Unknown History mcg-4.5 mcg/actuation aerosol inhaler (Symbicort) clobetasol 0.05 % topical cream 1 applic topical BID PRN unknown 12/07/22 12/07/22 Unknown History ergocalciferol (vitamin D2) 1,250 1,250 mcg PO Q7D 12/07/22 12/07/22 Unknown History mcg (50,000 unit) capsule fenofibrate nanocrystallized 145 145 mg PO BEDTIME 12/07/22 12/07/22 Unknown History mg tablet (Tricor) leflunomide 20 mg tablet 20 mg PO QAM 12/07/22 12/07/22 Unknown History levalbuterol HCl 0.63 mg/3 mL 0.63 mg inhalation TID PRN unknown 12/07/22 12/07/22 Unknown History solution for nebulization levothyroxine 50 mcg tablet 50 mcg PO QAM 12/07/22 12/07/22 Unknown History loratadine 10 mg tablet (Claritin) 10 mg PO QAM 12/07/22 12/07/22 Unknown History montelukast 10 mg tablet 10 mg PO BEDTIME 12/07/22 12/07/22 Unknown History (Singulair) potassium chloride 10 mEq 10 meq PO QAM 12/07/22 12/07/22 Unknown History capsule,extended release semaglutide 1 mg/dose (4 mg/3 mL) 1 mg SUBCUT Q7D 12/07/22 12/07/22 Unknown History subcutaneous pen injector (Ozempic) zinc acetate 50 mg (zinc) capsule 50 mg PO DAILY 12/07/22 12/07/22 Unknown History Allergies Allergy/AdvReac Type Severity Reaction Status Date / Time LUIS ENRIQUE Inhibitors Allergy UNKNOWN Verified 12/07/22 00:09 albuterol Allergy RAPID PULSE Verified 12/07/22 00:09 ceftriaxone [From Rocephin] Allergy UNKNOWN Verified 12/07/22 00:09 duloxetine [From Cymbalta] Allergy FELT Verified 12/07/22 00:09 STRANGE escitalopram [From Lexapro] Allergy UNKOWN Verified 12/07/22 00:09 ibuprofen Allergy UNKNOWN Verified 12/07/22 00:09 Penicillins Allergy UNKNOWN Verified 12/07/22 00:09 Sulfa (Sulfonamide Allergy UNKNOWN Verified 12/07/22 00:09 Antibiotics) INSECT STINGS Allergy EXCESSIVE Uncoded 12/07/22 00:09 SWELLING PFSH Acute PFSH: Medical History (Updated 12/07/22 @ 08:10 by Heidi Peterson MD) Allergic rhinitis due to pollen Anxiety and depression Atherosclerotic heart disease of [place] coronary artery without angina pectoris Coronary calcifications noted on CT imaging Chronic left lumbar radiculopathy Chronic low back pain COPD (chronic obstructive pulmonary disease) with emphysema COVID-19 (2020) Diabetes mellitus with hyperglycemia, without long-term current use of insulin Family history of ankylosing spondylitis HLA B27 (HLA B27 positive) Hyperlipidemia Hypertension Hypertriglyceridemia Hypothyroidism Polyarthralgia Primary osteoarthritis, unspecified ankle and foot Psoriasis Vitamin D deficiency, unspecified Surgical History History of appendectomy History of hysterectomy for cancer History of tubal ligation Family History Father Cancer Diabetes CAD (coronary artery disease) Brother Diabetes Daughter Diabetes CAD (coronary artery disease) Rheumatoid arthritis Other Hypertension Denies family history of Lupus Psoriasis Social History (Updated 12/07/22 @ 06:45 by Heidi Peterson MD) Smoking and tobacco status: former smoker Quit status (tobacco): has quit using tobacco Second hand smoke exposure: No Alcohol intake: never Substance/Drug Use: never Adopted: No Caregiver/support person: No Lives independently: Yes Household members: spouse Housing: House Marital status: Number of children: 3 service: No Current occupational status: unemployed Do you think of yourself as: Straight/Heterosexual Current gender identity: Female Vitals/I&O/Wt Last Vital Signs Temp 98.2 F 12/07/22 00:05 Pulse 80 12/07/22 06:06 Resp 16 12/07/22 06:06 BP 119/71 12/07/22 06:06 Pulse Ox 97 12/07/22 06:06 O2 Del Method Nasal Cannula 12/07/22 04:02 O2 Flow Rate 3 12/07/22 04:02 12/06/22 12/06/22 12/07/22 14:59 22:59 06:59 Intake Total 1000 / 1000 Balance 1000 / 1000 Weight last 48 hrs Weight 97.522 kg Physical Exam Narrative: Patient is awake and alert, able to provide history. NG tube is in place. She has output in the NG tube being but canister at the wall suction is presently empty. Mucous membranes are dry. Neck is supple. Lungs are clear to auscultation bilaterally. Regular rate and rhythm. Abdomen is soft, bowel sounds are decreased. Able to palpate some movement of gas. She has ventral hernia approximately 3 cm in diameter above the umbilicus that is tender to palpation. No guarding but rebound is noted. Not fully reducible. There is a small amount of discoloration over the hernia but difficult to know if it is from recent palpations. It is primarily erythematous rather than dusky or bluish in color. Extremities with trace pitting edema bilaterally. No calf tenderness. Pulses are 1+ and equal bilaterally. Speech is clear, face symmetric, moves all extremities. Data 12/07/22 00:15 12/07/22 00:15 Other Labs: Radiology Impressions Abdomen/Pelvis CT 12/07/22 01:01 IMPRESSION: 1. Complex ventral small bowel containing hernia as described, with evidence of a associated enteritis and small bowel obstruction. Advise surgical consultation. 2. No abscess or free air. 3. Postop findings as described with a few partially calcified mesenteric nodules. These may be due to treated disease such as carcinoid. This requires correlation. 4. Multiple chronic findings above. 5. Call to provider has been initiated. ADDENDUM: 12/07/22 0221 THIS REPORT CONTAINS FINDINGS THAT MAY BE CRITICAL TO PATIENT CARE. The findings were verbally communicated via telephone conference at 2:19 AM CDT on 12/07/2022 with JULISA GARDNER. The findings were acknowledged and understood. Chest X-Ray 12/07/22 03:05 IMPRESSION: NGT in place. Laboratory Results WBC 9.7 10^3/uL (4.0-10.0) 12/07/22 00:15 RBC 5.91 10^6/uL (4.1-5.3) H 12/07/22 00:15 Hgb 16.9 g/dL (11.5-15.3) H 12/07/22 00:15 Hct 49.2 % (37.0-47.0) H 12/07/22 00:15 MCV 83.2 fl (81-99) 12/07/22 00:15 MCH 28.6 pg (28.0-34.0) 12/07/22 00:15 MCHC 34.3 g/dL (30.0-36.0) 12/07/22 00:15 RDW 12.5 % (12.1-15.1) 12/07/22 00:15 Plt Count 520 10^3/cmm (130-400) H 12/07/22 00:15 MPV 10.2 fL (7.4-10.4) 12/07/22 00:15 Neut % (Auto) 87.5 % 12/07/22 00:15 Lymph % (Auto) 6.3 % 12/07/22 00:15 [place] % (Auto) 5.3 % 12/07/22 00:15 Eos % (Auto) 0.1 % 12/07/22 00:15 Baso % (Auto) 0.5 % 12/07/22 00:15 Neut # (Auto) 8.50 10^3/uL (1.8-7.7) H 12/07/22 00:15 Lymph # (Auto) 0.6 10^3/uL (0.8-4.8) L 12/07/22 00:15 [place] # (Auto) 0.5 10^3/uL (0.2-0.9) 12/07/22 00:15 Eos # (Auto) 0.0 10^3/uL (0.0-0.8) 12/07/22 00:15 Baso # (Auto) 0.1 10^3/uL (0.0-0.1) 12/07/22 00:15 Nucleated RBC % (auto) 0 % 12/07/22 00:15 Nucleated RBCs # 0.0 /100WBC 12/07/22 00:15 Sodium 132 mmol/L (136-145) L 12/07/22 00:15 Potassium 4.2 mmol/L (3.5-5.1) 12/07/22 00:15 Chloride 92 mmol/L (98-107) L 12/07/22 00:15 Carbon Dioxide 21 mmol/L (22-29) L 12/07/22 00:15 Anion Gap 23.2 (5-19) H 12/07/22 00:15 BUN 14 mg/dL (8-23) 12/07/22 00:15 Creatinine 0.6 mg/dL (0.5-0.9) 12/07/22 00:15 GFR Calculation 98.8 mL/min (90-130) 12/07/22 00:15 Glucose 309 mg/dL (65-115) H 12/07/22 00:15 Calculated Osmolality 286 mOsm/kg (285-295) 12/07/22 00:15 Lactic Acid 1.6 mmol/L (0.5-2.2) 12/07/22 04:30 Calcium 9.6 mg/dL (8.5-10.5) 12/07/22 00:15 Total Bilirubin 0.6 mg/dL (0.15-1.2) 12/07/22 00:15 AST 31 U/L (0-32) 12/07/22 00:15 ALT 25 U/L (0-33) 12/07/22 00:15 Alkaline Phosphatase 67 U/L (35-105) 12/07/22 00:15 C-Reactive Protein 60.7 mg/L (0.0-4.9) H 12/07/22 00:15 Total Protein 7.6 g/dL (6.6-8.7) 12/07/22 00:15 Albumin 4.3 g/dL (3.5-5.2) 12/07/22 00:15 Globulin 3.3 g/dL (1.3-4.6) 12/07/22 00:15 Lipase 50 U/L (13-60) 12/07/22 00:15 A&P Assessment and plan (1) Incarcerated hernia: Above the umbilicus. Unclear if umbilical in nature, from previous surgical site or spontaneous ventral hernia at this time. Lactic acid initially 3.0 with CRP of 60.7. Repeat lactic acid after some fluids improved to 1.5 but hernia continues to be not fully reducible and associated with rebound at the time of my examination. (2) Small bowel obstruction: Secondary to above incarcerated hernia. Exacerbated potentially by chronic use of semaglutide and chronic constipation. (3) Atherosclerotic heart disease of [place] coronary artery without angina pectoris: Reviewing records looks to have a history of coronary calcifications noted on CT imaging but has not had symptoms suggestive of angina and has been managed medically with aspirin, beta-blockade. (4) Diabetes mellitus with hyperglycemia, without long-term current use of insulin: Type 2 diabetes mellitus, blood sugars currently inadequately controlled in the setting of acute illness. Chronically on semaglutide. Qualifiers: Diabetes mellitus type: type 2 Qualified Code(s): E11.65 - Type 2 diabetes mellitus with hyperglycemia (5) Hypertension: Chronically on Lasix, amlodipine, and beta-blockade Qualifiers: Hypertension type: essential hypertension Qualified Code(s): I10 - Essential (primary) hypertension (6) Hyperlipidemia: With elevated triglycerides, chronically on Tricor Qualifiers: Hyperlipidemia type: pure hypercholesterolemia Qualified Code(s): E78.00 - Pure hypercholesterolemia, unspecified (7) Psoriasis: Chronically on leflunomide (8) COPD (chronic obstructive pulmonary disease) with emphysema: Chronic, not acute, chronically on budesonide and Xopenex (9) Chronic low back pain: Chronically on celecoxib, gabapentin (10) Anxiety and depression: Chronically on citalopram and as needed hydroxyzine (11) BMI 34.0-34.9,adult: Plan Hypothyroidism on chronic levothyroxine In patient admission Surgical consultation Maintain n.p.o. status NG tube to low intermittent suction Serial abdominal exams IV fluids Repeat lactic acid Twelve-lead EKG in preparation for possible surgery Urinalysis Sliding scale insulin for diabetes Hold semaglutide, will need to evaluate if this medication can be safely resumed in light of clinical presentation this hospital stay. Currently we will put on as needed IV beta-blockade while n.p.o. Hold leflunomide All other oral medications currently held; address when able to tolerate oral intake Budesonide and Xopenex are ordered Findings, concerns and plans were discussed with patient and her daughter and both were given an opportunity to ask questions VTE prophylaxis: SCDs currently, no pharmacological prophylaxis secondary to potential need for surgery GI Prophylaxis: PPI Telemetry: Not currently indicated Avila: Not currently indicated Line(s): Peripheral IV Disposition plan: Ultimately anticipate discharge home with close outpatient follow-up though actual plans will depend on clinical course. 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 She will need clear guidance on what she can and cannot do as time of discharge to help promote her own healing and overall health and wellbeing. Code Status: Full code Attestations Medical Necessity Statement*: Anticipated stay greater than two midnights in this patient with small bowel obstruction and incarcerated ventral hernia who will likely need surgical intervention if does not improve with conservative measures. She is immunocompromised from diabetes and psoriasis on leflunomide therapy. With initial lactate elevation, at high risk of rapid clinical decline without close monitoring and treatment. Coding Level of Care Code 41170 High Time for a total of 75 minutes, includes reviewing past or interval history, examining/interviewing patient, placing orders, discussing plan of care with staff and documenting encounter Diagnoses Incarcerated hernia K46.0 Small bowel obstruction K56.609 Atherosclerotic heart disease of [place] coronary artery without angina pectoris I25.10 Diabetes mellitus with hyperglycemia, without long-term current use of insulin E11.65 Diabetes mellitus type: type 2 Hypertension I10 Hypertension type: essential hypertension Hyperlipidemia E78.00 Hyperlipidemia type: pure hypercholesterolemia Psoriasis L40.9 COPD (chronic obstructive pulmonary disease) with emphysema J43.9 Chronic low back pain M54.50; G89.29 Anxiety and depression F41.9; F32.9 BMI 34.0-34.9,adult Z68.34
--- NOTE | 2022-12-07 07:48 | PM.CONSULT ---
Providers/Reason For Consult Consulting Physician/Specialty*: Dr. Gerald Laura, DO/General surgery Reason for Consult*: Incarcerated incisional hernia Attending Physician: Heidi Peterson MD Primary Care Provider: RANDY Covarrubias History of Present Illness History of Present Illness Linda Kelly is a 71 year old female presents to the hospital with a 2-week history of abdominal pain nausea and vomiting. She reports her last bowel movement was 5 days ago. She denies passing any flatus for several days. She has a history of midline laparotomy for a total hysterectomy. She also had a cholecystectomy and an appendectomy. A good portion of the hernia was successfully reduced in the ER, and she now has minimal abdominal pain. The pain is sharp and constant. Palpation makes pain worse. Nothing makes pain better. The pain does not radiate. She denies any hematemesis. Review of Systems General: Reports: 10 or more systems reviewed and unremarkable except in HPI and below Medications/Allergies Home Medications Medication Instructions Recorded Confirmed Last Taken Type multivit with min-folic 1 tab PO QAM 04/25/19 12/07/22 Unknown History acid-lutein 400 mcg-250 mcg chewable tablet (Centrum Silver) ascorbic acid (vitamin C) 500 mg 500 mg PO QAM 10/16/20 12/07/22 Unknown History tablet aspirin 81 mg chewable tablet 81 mg PO QAM 10/16/20 12/07/22 Unknown History atenolol 50 mg tablet 50 mg PO BID #60 tabs 11/19/22 12/07/22 Unknown Rx blood sugar diagnostic (OneTouch #100 ea 11/19/22 12/07/22 Unknown Rx Ultra Test strips) blood-glucose meter (OneTouch #1 ea 11/19/22 12/07/22 Unknown Rx Ultra2 Meter kit) celecoxib 100 mg capsule 100 mg PO BID #60 caps 11/19/22 12/07/22 Unknown Rx citalopram 20 mg tablet (Celexa) 20 mg PO BID #60 tabs 11/19/22 12/07/22 Unknown Rx furosemide 20 mg tablet (Lasix) 20 mg PO QAM #30 tabs 11/19/22 12/07/22 Unknown Rx gabapentin 800 mg tablet 800 mg PO TID #90 tabs 11/19/22 12/07/22 Unknown Rx hydroxyzine pamoate 25 mg capsule 25 mg PO TID PRN anxiety #90 caps 11/19/22 12/07/22 Unknown Rx amlodipine 5 mg tablet 5 mg PO QPM 12/07/22 12/07/22 Unknown History budesonide 0.5 mg/2 mL suspension 0.5 mg inhalation BID PRN unknown 12/07/22 12/07/22 Unknown History for nebulization (Pulmicort) budesonide-formoterol HFA 80 2 puff inhalation Q12H PRN unknown 12/07/22 12/07/22 Unknown History mcg-4.5 mcg/actuation aerosol inhaler (Symbicort) clobetasol 0.05 % topical cream 1 applic topical BID PRN unknown 12/07/22 12/07/22 Unknown History ergocalciferol (vitamin D2) 1,250 1,250 mcg PO Q7D 12/07/22 12/07/22 Unknown History mcg (50,000 unit) capsule fenofibrate nanocrystallized 145 145 mg PO BEDTIME 12/07/22 12/07/22 Unknown History mg tablet (Tricor) leflunomide 20 mg tablet 20 mg PO QAM 12/07/22 12/07/22 Unknown History levalbuterol HCl 0.63 mg/3 mL 0.63 mg inhalation TID PRN unknown 12/07/22 12/07/22 Unknown History solution for nebulization levothyroxine 50 mcg tablet 50 mcg PO QAM 12/07/22 12/07/22 Unknown History loratadine 10 mg tablet (Claritin) 10 mg PO QAM 12/07/22 12/07/22 Unknown History montelukast 10 mg tablet 10 mg PO BEDTIME 12/07/22 12/07/22 Unknown History (Singulair) potassium chloride 10 mEq 10 meq PO QAM 12/07/22 12/07/22 Unknown History capsule,extended release semaglutide 1 mg/dose (4 mg/3 mL) 1 mg SUBCUT Q7D 12/07/22 12/07/22 Unknown History subcutaneous pen injector (Ozempic) zinc acetate 50 mg (zinc) capsule 50 mg PO DAILY 12/07/22 12/07/22 Unknown History Allergies Allergy/AdvReac Type Severity Reaction Status Date / Time LUIS ENRIQUE Inhibitors Allergy UNKNOWN Verified 12/07/22 00:09 albuterol Allergy RAPID PULSE Verified 12/07/22 00:09 ceftriaxone [From Rocephin] Allergy UNKNOWN Verified 12/07/22 00:09 duloxetine [From Cymbalta] Allergy FELT Verified 12/07/22 00:09 STRANGE escitalopram [From Lexapro] Allergy UNKOWN Verified 12/07/22 00:09 ibuprofen Allergy UNKNOWN Verified 12/07/22 00:09 Penicillins Allergy UNKNOWN Verified 12/07/22 00:09 Sulfa (Sulfonamide Allergy UNKNOWN Verified 12/07/22 00:09 Antibiotics) INSECT STINGS Allergy EXCESSIVE Uncoded 12/07/22 00:09 SWELLING Current Medications Generic Name Dose Route Start Last Admin Trade Name Freq PRN Reason Stop Dose Admin Sodium Chloride 1,000 mls @ 150 mls/hr 12/07/22 04:45 12/07/22 04:46 Sodium Chloride 0.9% IV 150 mls/hr .Q6H40M SARAI Administration PFSH Acute PFSH: Medical History Allergic rhinitis due to pollen Anxiety and depression Atherosclerotic heart disease of [place] coronary artery without angina pectoris Chronic left lumbar radiculopathy Chronic low back pain COPD (chronic obstructive pulmonary disease) with emphysema COVID-19 (2020) Diabetes mellitus with hyperglycemia, without long-term current use of insulin Family history of ankylosing spondylitis HLA B27 (HLA B27 positive) Hyperlipidemia Hypertension Hypertriglyceridemia Hypothyroidism Polyarthralgia Primary osteoarthritis, unspecified ankle and foot Psoriasis Vitamin D deficiency, unspecified Surgical History History of appendectomy History of hysterectomy for cancer History of tubal ligation Family History Father Cancer Diabetes CAD (coronary artery disease) Brother Diabetes Daughter Diabetes CAD (coronary artery disease) Rheumatoid arthritis Other Hypertension Denies family history of Lupus Psoriasis Social History Smoking and tobacco status: former smoker Quit status (tobacco): has quit using tobacco Second hand smoke exposure: No Alcohol intake: never Substance/Drug Use: never Adopted: No Caregiver/support person: No Lives independently: Yes Household members: spouse Housing: House Marital status: Number of children: 3 service: No Current occupational status: unemployed Do you think of yourself as: Straight/Heterosexual Current gender identity: Female Vitals/I&O/Wt Last Vital Signs Temp 98.2 F 12/07/22 00:05 Pulse 87 12/07/22 06:50 Resp 28 H 12/07/22 06:50 BP 117/66 12/07/22 06:50 Pulse Ox 96 12/07/22 06:50 O2 Del Method Nasal Cannula 12/07/22 06:50 O2 Flow Rate 2 12/07/22 06:50 12/06/22 12/07/22 12/07/22 22:59 06:59 14:59 Intake Total 1000 / 1000 Balance 1000 / 1000 Weight last 48 hrs Weight 215 lb Physical Exam Narrative: General : Patient is well developed , no acute distress, oriented x3 Head : Normal cephalic, a-traumatic. Ears : Pinnae and external canal are normal. Hearing is normal. Eyes : PERRLA, Sclera and injection are normal. No conjunctival discharge. Nose : Mucous membranes are without erythema. Throat : buccal mucosa is normal, gums are without significant recession or hypertrophy. Lungs : Equal chest rise bilaterally, no use of accessory muscles, trachea is midline. Cor : Rate and rhythm are normal. Abdomen : Soft, ND, minimal tenderness over and incarcerated incisional hernia, the diameter of the hernia measures almost [address], no g/r/m Extremities : No edema, no cyanosis or clubbing, dorsalis pedis pulses are present bilaterally, non-tender to palpation of calves. Upper extremities are normal bilaterally. Back : non-tender to palpation, no CVA tenderness. Neuro : CN II - XII intact, Upper and lower extremities have equal and full strength Data 12/07/22 00:15 12/07/22 00:15 A&P Assessment and plan (1) Incarcerated incisional hernia: Plan Laparoscopic repair of incarcerated incisional hernia with mesh The risks and benefits of the procedure, including but not limited to, bleeding, infection, mesh infection requiring mesh excision antibiotic therapy and repeat surgery, damage surrounding structures, conversion to an open procedure, scar, numbness, pain, and/or recurrence were explained to the patient. Patient is understanding of the risks and wishes to proceed. Coding Level of Care Code 24833 Diagnoses Incarcerated incisional hernia K43.0
--- NOTE | 2022-12-07 07:54 | ANES.PREANE2 ---
Pre-Anesthetic Assessment Height/Weight: Height 1.68 m Weight 97.522 kg Temp Pulse Resp BP Pulse Ox O2 Del Method O2 Flow Rate 98.2 F 87 28 H 117/66 96 Nasal Cannula 2 12/07/22 00:05 12/07/22 06:50 12/07/22 06:50 12/07/22 06:50 12/07/22 06:50 12/07/22 06:50 12/07/22 06:50 Operation Date: 12/07/22 14:30 Proposed Procedures p Laparoscopic Ventral Hernia Repair w/ Mesh(Not Applicable) - Gerald Gatica DO Familial anesthetic complications: PONV Was Beta Sondra taken within 24 hours: Yes Was Clonidine taken within 24 hours: N/A Social No alcohol and No tobacco Exam alert, oriented x 3, clear to auscultation bilaterally and regular rate & rhythm Airway Submandibular: within normal limits Cervical ROM: within normal limits Mallampati: Class I Dentition: false Pulmonary Chronic Obstructive Pulmonary Disease CV/HEM Coronary Artery Disease and Hypertension GI SBO/incarcerated hernia Metabolic Diabetes Mellitus, Morbid Obesity and Thyroid Disease [facility] Osteoarthritis/DJD Neuropsych Anxiety and Depression Anesthetic Plan ASA status: 3E Anesthesia: General (Mod RSI (NG in place)) Medications/Allergies Home Medications Medication Instructions Recorded Confirmed Last Taken Type multivit with min-folic 1 tab PO QAM 04/25/19 12/07/22 Unknown History acid-lutein 400 mcg-250 mcg chewable tablet (Centrum Silver) ascorbic acid (vitamin C) 500 mg 500 mg PO QAM 10/16/20 12/07/22 Unknown History tablet aspirin 81 mg chewable tablet 81 mg PO QAM 10/16/20 12/07/22 Unknown History atenolol 50 mg tablet 50 mg PO BID #60 tabs 11/19/22 12/07/22 Unknown Rx blood sugar diagnostic (OneTouch #100 ea 11/19/22 12/07/22 Unknown Rx Ultra Test strips) blood-glucose meter (OneTouch #1 ea 11/19/22 12/07/22 Unknown Rx Ultra2 Meter kit) celecoxib 100 mg capsule 100 mg PO BID #60 caps 11/19/22 12/07/22 Unknown Rx citalopram 20 mg tablet (Celexa) 20 mg PO BID #60 tabs 11/19/22 12/07/22 Unknown Rx furosemide 20 mg tablet (Lasix) 20 mg PO QAM #30 tabs 11/19/22 12/07/22 Unknown Rx gabapentin 800 mg tablet 800 mg PO TID #90 tabs 11/19/22 12/07/22 Unknown Rx hydroxyzine pamoate 25 mg capsule 25 mg PO TID PRN anxiety #90 caps 11/19/22 12/07/22 Unknown Rx amlodipine 5 mg tablet 5 mg PO QPM 12/07/22 12/07/22 Unknown History budesonide 0.5 mg/2 mL suspension 0.5 mg inhalation BID PRN unknown 12/07/22 12/07/22 Unknown History for nebulization (Pulmicort) budesonide-formoterol HFA 80 2 puff inhalation Q12H PRN unknown 12/07/22 12/07/22 Unknown History mcg-4.5 mcg/actuation aerosol inhaler (Symbicort) clobetasol 0.05 % topical cream 1 applic topical BID PRN unknown 12/07/22 12/07/22 Unknown History ergocalciferol (vitamin D2) 1,250 1,250 mcg PO Q7D 12/07/22 12/07/22 Unknown History mcg (50,000 unit) capsule fenofibrate nanocrystallized 145 145 mg PO BEDTIME 12/07/22 12/07/22 Unknown History mg tablet (Tricor) leflunomide 20 mg tablet 20 mg PO QAM 12/07/22 12/07/22 Unknown History levalbuterol HCl 0.63 mg/3 mL 0.63 mg inhalation TID PRN unknown 12/07/22 12/07/22 Unknown History solution for nebulization levothyroxine 50 mcg tablet 50 mcg PO QAM 12/07/22 12/07/22 Unknown History loratadine 10 mg tablet (Claritin) 10 mg PO QAM 12/07/22 12/07/22 Unknown History montelukast 10 mg tablet 10 mg PO BEDTIME 12/07/22 12/07/22 Unknown History (Singulair) potassium chloride 10 mEq 10 meq PO QAM 12/07/22 12/07/22 Unknown History capsule,extended release semaglutide 1 mg/dose (4 mg/3 mL) 1 mg SUBCUT Q7D 12/07/22 12/07/22 Unknown History subcutaneous pen injector (Ozempic) zinc acetate 50 mg (zinc) capsule 50 mg PO DAILY 12/07/22 12/07/22 Unknown History Allergies Allergy/AdvReac Type Severity Reaction Status Date / Time LUIS ENRIQUE Inhibitors Allergy UNKNOWN Verified 12/07/22 00:09 albuterol Allergy RAPID PULSE Verified 12/07/22 00:09 ceftriaxone [From Rocephin] Allergy UNKNOWN Verified 12/07/22 00:09 duloxetine [From Cymbalta] Allergy FELT Verified 12/07/22 00:09 STRANGE escitalopram [From Lexapro] Allergy UNKOWN Verified 12/07/22 00:09 ibuprofen Allergy UNKNOWN Verified 12/07/22 00:09 Penicillins Allergy UNKNOWN Verified 12/07/22 00:09 Sulfa (Sulfonamide Allergy UNKNOWN Verified 12/07/22 00:09 Antibiotics) INSECT STINGS Allergy EXCESSIVE Uncoded 12/07/22 00:09 SWELLING Current Medications Generic Name Dose Route Start Last Admin Trade Name Freq PRN Reason Stop Dose Admin Sodium Chloride 1,000 mls @ 150 mls/hr 12/07/22 04:45 12/07/22 04:46 Sodium Chloride 0.9% IV 150 mls/hr .Q6H40M SARAI Administration PFSH Anesthesia Medical History Allergic rhinitis due to pollen Anxiety and depression Atherosclerotic heart disease of [place] coronary artery without angina pectoris Chronic left lumbar radiculopathy Chronic low back pain COPD (chronic obstructive pulmonary disease) with emphysema COVID-19 (2020) Diabetes mellitus with hyperglycemia, without long-term current use of insulin Family history of ankylosing spondylitis HLA B27 (HLA B27 positive) Hyperlipidemia Hypertension Hypertriglyceridemia Hypothyroidism Polyarthralgia Primary osteoarthritis, unspecified ankle and foot Psoriasis Vitamin D deficiency, unspecified Surgical History History of appendectomy History of hysterectomy for cancer History of tubal ligation Family History Father Cancer Diabetes CAD (coronary artery disease) Brother Diabetes Daughter Diabetes CAD (coronary artery disease) Rheumatoid arthritis Other Hypertension Denies family history of Lupus Psoriasis Social History Smoking and tobacco status: former smoker Quit status (tobacco): has quit using tobacco Second hand smoke exposure: No Alcohol intake: never Substance/Drug Use: never Adopted: No Caregiver/support person: No Lives independently: Yes Household members: spouse Housing: House Marital status: Number of children: 3 service: No Current occupational status: unemployed Do you think of yourself as: Straight/Heterosexual Current gender identity: Female Data Anesthesia 12/07/22 00:15 12/07/22 00:15 Short CBC 12/07/22 Range/Units 00:15 WBC 9.7 (4.0-10.0) 10^3/uL Hgb 16.9 H (11.5-15.3) g/dL Hct 49.2 H (37.0-47.0) % MCV 83.2 (81-99) fl Plt Count 520 H (130-400) 10^3/cmm Neut % (Auto) 87.5 % Neut # (Auto) 8.50 H (1.8-7.7) 10^3/uL BMP 12/07/22 00:15 Sodium 132 L Potassium 4.2 Chloride 92 L Carbon Dioxide 21 L BUN 14 Creatinine 0.6 Glucose 309 H Calcium 9.6 Liver Function 12/07/22 Range/Units 00:15 Total Bilirubin 0.6 (0.15-1.2) mg/dL AST 31 (0-32) U/L ALT 25 (0-33) U/L Alkaline Phosphatase 67 (35-105) U/L Albumin 4.3 (3.5-5.2) g/dL Coags 12/07/22 00:15 C-Reactive Protein 60.7 H Cardiac Studies: No Data to Display
[2022-12-07] MEDS: diphenhydrAMINE 50 mg/mL SDV 1mL 12.5 MG IVP (08:04)
[2022-12-07] MEDS: scopolamine 1.5 Patch 1 PATCH TRANSDERMA (08:05)
[2022-12-07] MEDS: levofloxacin-dextrose 5 % 500 MG/100 ML PREMIX 100 MG IV (08:14)
[2022-12-07 08:21] LABS: Protein Urine 3+ (Negative); Urine Appearance Hazy (CLEAR); Urine Color Yellow (Yellow); pH Urine 5 (5-7)
[2022-12-07 08:22] LABS: Bilirubin Urine 1+ (Negative); Blood Urine 2+ (Negative); Glucose Urine UA 2+ (Normal); Ketones Urine 1+ (Negative); Leukocyte Esterase Urine Negative (Negative); Nitrate Urine Negative (Negative); Urobilinogen Urine 1 mg/dL (Negative)
[2022-12-07 08:23] LABS: Add Urine Microscopic? YES
[2022-12-07 08:45] LABS: RBC Urine 0-4 /hpf (0-2)
[2022-12-07 08:46] LABS: Estmated Average Glucose 183
[2022-12-07 08:46] LABS: Add Urine Culture? Yes; Bacteria Urine 2+ /hpf; Hyaline Casts Urine RARE /lpf; Mucus Urine TRACE /hpf
[2022-12-07] MEDS: lidocaine-epi 2% 20 mL INJ INJECTION (08:47)
--- NOTE | 2022-12-07 09:14 | PM.OP ---
Operative Report Date of procedure: December 07, 2022 Pre-op diagnosis: Incarcerated incisional hernia Post-op diagnosis: Incarcerated incisional hernias x3 Procedure done: Laparoscopic repair of incarcerated incisional hernias x3 Extensive lysis of adhesions Implants: 8 inch round Ventralight mesh Specimens removed/disposition: None Surgeon: Dr. Gerald Gatica DO Anesthesia: General Estimated blood loss (mL): 5 Complications: None apparent Findings: 3 separate hernias containing small bowel, omentum and colon. Combined diameter of 9 cm Brief History: This is a very pleasant 71-year-old female who presented to the emergency room with a small bowel obstruction and an incarcerated incisional hernia. Laparoscopic repair with mesh was indicated. The risk benefits were explained and documented. Procedure: Patient was wheeled into the operative room and placed on the OR table in a supine position. Abdomen was inspected prepped and draped in usual sterile fashion. Time-out was performed and all present were in agreement. A 15 blade scalp was used to make a 5 millimeter incision left upper quadrant. A Veress needle was placed into the incision and intra-abdominal insufflation was brought to 15 millimeters of mercury. A 12 millimeter trocar was placed into the left lower quadrant. There was a large, 5 cm incisional hernia containing small bowel and omentum. I was able to reduce this hernia using manual traction. There were extensive adhesions throughout the abdomen. A second 5 mm trocar was placed between the 5 mm and 12 mm trocars. Greater than 30 minutes of lysis of adhesions was required. Enseal was used for lysis of adhesions. Once the large hernia was reduced a smaller hernia containing colon was identified just inferior to this. Using meticulous sharp dissection the colon was freed from its adhesions and the hernia. There was a small 1 cm hernia superior to these hernias as well. I used the Enseal then to transect the peritoneum all the way around the hernias and the hernia sac was removed. Hernia sac was not passed off.. A 8 inch ventral light mesh was placed into the abdomen and brought up through the umbilicus using an the Phan-Blanca. The mesh was then tacked in place in a double crown fashion. The skeleton of the mesh was removed via the left lower quadrant. The hernia sac was then removed from the abdomen via the left lower quadrant. The left lower quadrant port site was closed with an 0 Vicryl suture in a Phan-Blanca in a [id number] fashion. Incisions were closed with 4 O Vicryl in a subcuticular interrupted fashion. Skin glue was applied. Patient tolerated the procedure well.
[2022-12-07] MEDS: fentaNYL 50 mcg/mL INJ 2mL 100 MCG IVP (09:57)
--- NOTE | 2022-12-07 10:40 | ANE.PACU2 ---
Inpatient post-anesthesia follow up: Airway intact: Yes Vital signs: Temperature 97.7 F Pulse Rate 77 Respiratory Rate 18 Blood Pressure 121/71 Pulse Oximetry 93 Oxygen Delivery Me thod Simple Mask Oxygen Flow Rate 2 Fraction of Inspir ed Oxygen Hydration adequate: Yes Nausea and vomiting: No Pain level: 2 Mental status: Baseline
--- NOTE | 2022-12-07 10:44 | ECG_ITS ---
[facility] Test Date: 2022-12-07 Pat Name: Linda Kelly Department: Room: 253 Gender: Female Therapist Asst: : 1950 Requested By: Heidi Peterson Order Number: [id number] Ashu MD: Rubi Morales M.D. Measurements Intervals [place] Rate: 75 P: 34 MN: 213 QRS: 22 QRSD: 95 T: 58 QT: 446 QTc: 499 Interpretive Statements SINUS RHYTHM WITH FIRST DEGREE AV BLOCK LOW QRS VOLTAGE IN PRECORDIAL LEADS [QRS DEFLECTION < 1.0 mV IN CHEST LEADS] MINIMAL ST DEPRESSION [0.025+ mV ST DEPRESSION] PROLONGED QT INTERVAL No previous ECG available for comparison Electronically Signed On 12-07-2022 11:09:15 CDT by Rubi Morales M.D. [email or web address]
[2022-12-07] MEDS: lactated ringers 1,000 ML 125 ML IV ×2 (11:36→19:35)
[2022-12-07 12:20] LABS: Glucose Point of Care 238 mg/dL (70-110)
[2022-12-07] MEDS: insulin lispro 100 unit/1 mL SUBCUT ×2 (12:57→17:52)
[2022-12-07] MEDS: HYDROmorphone 1 mg/mL INJ 1 mL 0.4 MG IVP ×4 (14:07→21:45)
[2022-12-07 17:50] LABS: Glucose Point of Care 156 mg/dL (70-110)
[2022-12-07 23:07] LABS: Glucose Point of Care 90 mg/dL (70-110)
[2022-12-07 23:07] LABS: Glucose Point of Care 188 mg/dL (70-110)
[2022-12-08] VITALS (15 sets, daily range): BP systolic 112–135; BP diastolic 72–83; PULSE 75–96; RESP 16–19; TEMP 36.4–37.2; O2SAT 90–94
[2022-12-08] MEDS: HYDROmorphone 1 mg/mL INJ 1 mL 0.4 MG IVP ×6 (00:28→22:12)
[2022-12-08] MEDS: lactated ringers 1,000 ML 125 ML IV ×2 (02:46→10:42)
[2022-12-08 05:05] LABS: Basophils % 0.3 %; Eosinophils % 0.1 %; Hematocrit 43.1 % (37.0-47.0); Hemoglobin 14.1 g/dL (11.5-15.3); Lymphocytes # 0.5 10^3/uL (0.8-4.8); Lymphocytes % 6.3 %; Mean Corpuscular HGB Conc 32.7 g/dL (30.0-36.0); Mean Corpuscular Hemoglobin 29.1 pg (28.0-34.0); Mean Platelet Volume 9.7 fL (7.4-10.4); Monocytes # 1.2 10^3/uL (0.2-0.9); Monocytes % 14.2 %; Neutrophils # 6.76 10^3/uL (1.8-7.7); Neutrophils % 78.6 %; Nucleated Red Blood Cells % 0 %; Platelet Count 345 10^3/cmm (130-400); Red Blood Count 4.84 10^6/uL (4.1-5.3); Red Cell Distribution Width 12.9 % (12.1-15.1); White Blood Count 8.6 10^3/uL (4.0-10.0)
[2022-12-08 05:29] LABS: Alanine Aminotransferase 13 U/L (0-33); Albumin Level 3.1 g/dL (3.5-5.2); Alkaline Phosphatase 46 U/L (35-105); Anion Gap 14.2 (5-19); Aspartate Amino Transferase 18 U/L (0-32); Blood Urea Nitrogen 14 mg/dL (8-23); Calcium 8.4 mg/dL (8.5-10.5); Carbon Dioxide 26 mmol/L (22-29); Chloride 101 mmol/L (98-107); Globulin 2.8 g/dL (1.3-4.6); Glucose 220 mg/dL (65-115); Magnesium 1.7 mg/dL (1.7-2.3); Osmolality Calculated 291 mOsm/kg (285-295); Phosphorus 2.3 mg/dL (2.5-4.5); Potassium 4.2 mmol/L (3.5-5.1); Sodium 137 mmol/L (136-145); Total Bilirubin 0.5 mg/dL (0.15-1.2); Total Protein 5.9 g/dL (6.6-8.7)
[2022-12-08 07:04] LABS: Glucose Point of Care 239 mg/dL (70-110)
[2022-12-08] MEDS: budesonide 0.5 mg/2 mL Neb INHALATION (07:51)
[2022-12-08] MEDS: levalbuterol 0.63 mg/3 mL Neb INHALATION (07:51)
[2022-12-08] MEDS: pantoprazole 40 mg SDV IVP (08:33)
[2022-12-08] MEDS: insulin lispro 100 unit/1 mL SUBCUT ×4 (08:33→21:25)
[2022-12-08] MEDS: levofloxacin-dextrose 5 % 500 MG/100 ML PREMIX 100 MG IV (08:34)
--- NOTE | 2022-12-08 09:56 | PC.CHAP ---
Pastoral Care Encounter/Spiritual Assessment Type of Contact [] Declined sport psychologist visit [] Patient/Family/Request visit [] Outpatient visit [] Follow-up visit [] Physician referral [] Code/Alert [] Routine visit [] Staff referral [] Actively dying [x] Patient sleeping [] Family support [] [] Out of room [] Palliative care [] [] Receiving care in room [] Pre-surgical visit [] Trauma [] Long length of stay [] ICU visit [] Other: Relational/Emotional Strength [] Patient feels connected with others/family/visitors/staff [] Distress [] Loneliness/isolation [] Abandonment Spirituality of Patient [] Person of Emily [] Attends Yarsanism of their Emily [] Believes in Prayer [] Reads Bible or Taoism materials [] There are Spiritual issues to be addressed [employer] Interventions [] Prayer [] Active listening [] Non-anxious presence [] Spiritual/emotional support [] Crisis/trauma care [] Spiritual counseling [] Bereavement support [] Provided bereavement packet [] Provided Bible/devotional materials [] Provided toy/stuffed animal, coloring book to patient or family member [] Provided Communion [] Anointing/Loiza [] Salvation [] Completed spiritual assessment [] Other: Impact on Illness or Injury [] Angry [] Fearful [] Anxious [] Often cries [] Exhaustion [] Unable to work [] Unable to attend buddhist [] Unable to walk/stand [] Unable to read [] Unable to drive [] Unable to eat/drink [] Unable to sleep [] Unable to be with family [] Patient intubated [] Other: Summary Time spent with patient
--- NOTE | 2022-12-08 10:18 | PM.PN ---
Subjective Subjective: Patient reports pain is well controlled. Denies flatus. Reports up out of bed already to chair for a couple hours. Denies fevers, chills, or nausea. NG tube present. Granddaughter is bedside and supportive. Medications: Reviewed: Yes Vitals/I&O/Wt Last Vital Signs Temp 98.1 F 12/08/22 08:00 Pulse 91 12/08/22 08:00 Resp 17 12/08/22 08:00 BP 121/78 12/08/22 08:00 Pulse Ox 92 12/08/22 08:00 O2 Del Method Nasal Cannula 12/08/22 07:52 O2 Flow Rate 2 12/08/22 07:52 12/07/22 12/08/22 12/08/22 22:59 06:59 14:59 Intake Total 997.917 / 3497.917 897.917 / 4395.834 100 / 100 Output Total 250 / 555 Balance 997.917 / 3192.917 647.917 / 3840.834 100 / 100 Weight last 48 hrs Weight 97.522 kg Physical Exam Narrative: General: Patient is awake and alert. Very pleasant. Head: Normocephalic. Atraumatic. EOM intact. NGT w dark bilious colored output. Neck: No JVD. Cardiovascular: RRR. No gallops. No murmurs. No peripheral edema. Lungs: Breath sounds are diminished bilateral bases, no use of accessory muscles, no crackles or wheezes. Wearing nasal cannula support. Skin: No jaundice. No rashes. Abdomen: Hypoactive bowel sounds, abdomen soft. 3 trocar sites clean dry and intact. Extremities: No cyanosis or clubbing. Musculoskeletal: No swollen or erythematous joints. Neurological: Moves all 4 extremities. No myoclonus. Data 12/08/22 04:31 12/08/22 04:31 Micro: Microbiology 12/07/22 08:08 Urine Culture - Preliminary Urine,Clean Catch Gram Negative Rods A&P Assessment and plan (1) Incarcerated hernia: General surgery following, appreciate recommendations Status post laparoscopic repair of incarcerated incisional hernia x3 Diet, perioperative antibiotics, NGT management per general surgery Awaiting return of bowel function Antiemetics and analgesics as needed Continue out of bed to chair Therapy (2) Small bowel obstruction: Secondary to incarcerated hernia Management as above (3) Atherosclerotic heart disease of [place] coronary artery without angina pectoris: Plan to continue home medications when tolerating oral (4) Diabetes mellitus with hyperglycemia, without long-term current use of insulin: Semaglutide on hold Sliding-scale insulin correction Qualifiers: Diabetes mellitus type: type 2 Qualified Code(s): E11.65 - Type 2 diabetes mellitus with hyperglycemia (5) Hypertension: Home oral medications on hold due to bowel obstruction Plan to restart home meds when tolerating oral or clamping trials Qualifiers: Hypertension type: essential hypertension Qualified Code(s): I10 - Essential (primary) hypertension (6) Hyperlipidemia: Home oral meds on hold Qualifiers: Hyperlipidemia type: pure hypercholesterolemia Qualified Code(s): E78.00 - Pure hypercholesterolemia, unspecified (7) Psoriasis: Leflunomide on hold (8) COPD (chronic obstructive pulmonary disease) with emphysema: Not in acute exacerbation Pulmicort Xopenex (9) Chronic low back pain: Home gabapentin and celecoxib on hold Monitor for gabapentin withdrawal, restart when tolerating oral (10) Anxiety and depression: Restart home meds when clinically able (11) BMI 34.0-34.9,adult: Would benefit from weight loss Plan DVT prophylaxis: SCD CODE STATUS: Full code Attestations Medical Necessity Statement*: Patient requires ongoing hospitalization for monitoring of bowel function, IV fluids, electrolyte management, NG tube management, and supportive care. Coding Level of Care Code Acute Code for Chg Fwd Diagnoses Incarcerated hernia K46.0 Small bowel obstruction K56.609 Atherosclerotic heart disease of [place] coronary artery without angina pectoris I25.10 Diabetes mellitus with hyperglycemia, without long-term current use of insulin E11.65 Diabetes mellitus type: type 2 Hypertension I10 Hypertension type: essential hypertension Hyperlipidemia E78.00 Hyperlipidemia type: pure hypercholesterolemia Psoriasis L40.9 COPD (chronic obstructive pulmonary disease) with emphysema J43.9 Chronic low back pain M54.50; G89.29 Anxiety and depression F41.9; F32.9 BMI 34.0-34.9,adult Z68.34
[2022-12-08 11:19] LABS: Glucose Point of Care 215 mg/dL (70-110)
--- NOTE | 2022-12-08 11:32 | PM.PN ---
Subjective Subjective: Patient seen and examined. Pain controlled. Not passing flatus yet. Vitals/I&O/Wt Last Vital Signs Temp 98.2 F 12/10/22 11:06 Pulse 74 12/10/22 11:06 Resp 18 12/10/22 11:06 BP 136/84 12/10/22 11:06 Pulse Ox 96 12/10/22 11:06 O2 Del Method Nasal Cannula 12/10/22 11:06 O2 Flow Rate 2 12/10/22 09:26 12/09/22 12/10/22 12/10/22 22:59 06:59 14:59 Intake Total 1553.333 / 1893.333 975 / 2868.333 720 / 720 Output Total 250 / 250 200 / 450 Balance 1303.333 / 1643.333 775 / 2418.333 720 / 720 Physical Exam Narrative: General: No acute distress, awake alert and oriented x3 Abdomen: Soft, nondistended, appropriately tender to palpation, no guarding rebound or masses Incisions intact without erythema or exudate Data 12/10/22 04:35 12/10/22 04:35 Micro: Microbiology 12/07/22 08:08 Urine Culture - Final Urine,Clean Catch Escherichia coli A&P Assessment and plan (1) Incarcerated incisional hernia: (2) Small bowel obstruction: Plan Status post laparoscopic repair of incarcerated incisional hernia with mesh IV fluids N.p.o./NG tube to low intermittent suction May use binder for comfort Incentive spirometer use Medical management per primary Attestations Medical Necessity Statement*: Per primary Coding Level of Care Code Acute Code for [facility] [place] Fwd Diagnoses Incarcerated incisional hernia K43.0 Small bowel obstruction K56.609
[2022-12-08 17:32] LABS: Glucose Point of Care 202 mg/dL (70-110)
[2022-12-08 21:10] LABS: Glucose Point of Care 147 mg/dL (70-110)
[2022-12-08] MEDS: lactated ringers 1,000 ML 100 ML IV (21:17)
[2022-12-09] VITALS (13 sets, daily range): BP systolic 138–155; BP diastolic 76–85; PULSE 66–84; RESP 14–18; TEMP 36.5–37.2; O2SAT 91–94
[2022-12-09 05:14] LABS: Basophils % 0.4 %; Eosinophils # 0.1 10^3/uL (0.0-0.8); Eosinophils % 0.7 %; Hematocrit 40.3 % (36-47); Lymphocytes % 9.8 %; Mean Corpuscular HGB Conc 32.3 g/dL (30-55); Mean Corpuscular Hemoglobin 28.6 pg (27-33); Mean Corpuscular Volume 88.6 fl (85-98); Mean Platelet Volume 9.7 fL (7.4-10.4); Monocytes # 1.1 10^3/uL (0.2-0.9); Monocytes % 11.2 %; Neutrophils # 7.66 10^3/uL (1.8-7.7); Neutrophils % 77.6 %; Nucleated Red Blood Cells % 0 %; Platelet Count 298 10^3/cmm (157-399); Red Blood Count 4.55 10^6/uL (3.85-5.65); White Blood Count 9.88 10^3/uL (3.29-11.43)
[2022-12-09 05:37] LABS: Alanine Aminotransferase 11 U/L (0-33); Alkaline Phosphatase 51 U/L (35-105); Anion Gap 13.7 (5-19); Aspartate Amino Transferase 13 U/L (0-32); Blood Urea Nitrogen 13 mg/dL (8-23); Calcium 8.8 mg/dL (8.5-10.5); Carbon Dioxide 26 mmol/L (22-29); Chloride 102 mmol/L (98-107); Glucose 155 mg/dL (65-115); Magnesium 1.9 mg/dL (1.7-2.3); Osmolality Calculated 289 mOsm/kg (285-295); Phosphorus 1.3 mg/dL (2.5-4.5); Potassium 3.7 mmol/L (3.5-5.1); Sodium 138 mmol/L (136-145); Total Bilirubin 0.5 mg/dL (0.15-1.2)
[2022-12-09] MEDS: HYDROmorphone 1 mg/mL INJ 1 mL 0.4 MG IVP ×4 (05:40→20:37)
[2022-12-09] MEDS: lactated ringers 1,000 ML 100 ML IV ×2 (06:25→17:31)
[2022-12-09 06:43] LABS: Glucose Point of Care 158 mg/dL (70-110)
[2022-12-09] MEDS: pantoprazole 40 mg SDV IVP (07:33)
[2022-12-09] MEDS: insulin lispro 100 unit/1 mL SUBCUT ×3 (07:33→21:08)
[2022-12-09] MEDS: levofloxacin-dextrose 5 % 500 MG/100 ML PREMIX 100 MG IV (07:34)
[2022-12-09 11:32] LABS: Glucose Point of Care 156 mg/dL (70-110)
--- NOTE | 2022-12-09 11:35 | PM.PN ---
Subjective Subjective: Pain controlled. Patient passing flatus now. Vitals/I&O/Wt Last Vital Signs Temp 98.2 F 12/10/22 11:06 Pulse 74 12/10/22 11:06 Resp 18 12/10/22 11:06 BP 136/84 12/10/22 11:06 Pulse Ox 96 12/10/22 11:06 O2 Del Method Nasal Cannula 12/10/22 11:06 O2 Flow Rate 2 12/10/22 09:26 12/09/22 12/10/22 12/10/22 22:59 06:59 14:59 Intake Total 1553.333 / 1893.333 975 / 2868.333 720 / 720 Output Total 250 / 250 200 / 450 Balance 1303.333 / 1643.333 775 / 2418.333 720 / 720 Physical Exam Narrative: General: No acute distress, awake alert and oriented x3 Abdomen: Soft, nondistended, appropriately tender to palpation, no guarding rebound or masses Incisions intact without erythema or exudate Data 12/10/22 04:35 12/10/22 04:35 Micro: Microbiology 12/07/22 08:08 Urine Culture - Final Urine,Clean Catch Escherichia coli A&P Assessment and plan (1) Incarcerated incisional hernia: (2) Small bowel obstruction: Plan Status post laparoscopic repair of incarcerated incisional hernia with mesh IV fluids NG tube discontinued Clear liquid diet May use binder for comfort Incentive spirometer use Medical management per primary Attestations Medical Necessity Statement*: Per primary Coding Level of Care Code Acute Code for Chg Fwd Diagnoses Incarcerated incisional hernia K43.0 Small bowel obstruction K56.609
[2022-12-09 11:49] LABS: Iron 17 ug/dL (37-145); Percent Saturation 8.2 % (20-50); Total Iron Binding Capacity 207 mcg/dl; Unsaturated Iron Binding 190 ug/dL (112-347)
[2022-12-09 12:06] LABS: Vitamin B12 637 pg/mL (232-1245)
--- NOTE | 2022-12-09 14:21 | PM.PN ---
Subjective Subjective: No acute events overnight. Patient today morning seen sitting up in chair. NG tube in place. 50 cc reported drainage from NG tube drainage from NG tube overnight and 200 since today morning good afternoon. Patient is able to walk around. Did pass flatus but no bowel movements yet. Denies any abdominal pain or nausea. Family members at bedside. Blood work shows stable CBC, CMP. Iron panel consistent with combination of iron deficiency anemia and anemia of chronic disease. Medications: Reviewed: Yes Vitals/I&O/Wt Last Vital Signs Temp 98.5 F 12/09/22 12:00 Pulse 79 12/09/22 12:00 Resp 17 12/09/22 13:04 BP 138/79 12/09/22 12:00 Pulse Ox 94 12/09/22 12:00 O2 Del Method Nasal Cannula 12/09/22 07:49 O2 Flow Rate 2 12/09/22 07:22 12/08/22 12/09/22 12/09/22 22:59 06:59 14:59 Intake Total 1000 / 2091.667 913.333 / 3005.000 340 / 340 Output Total 350 / 600 Balance 1000 / 1841.667 563.333 / 2405.000 340 / 340 Physical Exam Narrative: General: Patient is awake and alert. Very pleasant. Head: Normocephalic. Atraumatic. EOM intact. NGT w dark bilious colored output. Neck: No JVD. Cardiovascular: RRR. No gallops. No murmurs. No peripheral edema. Lungs: Breath sounds are diminished bilateral bases, no use of accessory muscles, no crackles or wheezes. Wearing nasal cannula support. Skin: No jaundice. No rashes. Abdomen: Hypoactive bowel sounds, abdomen soft. 3 trocar sites clean dry and intact. Extremities: No cyanosis or clubbing. Musculoskeletal: No swollen or erythematous joints. Neurological: Moves all 4 extremities. No myoclonus. Data 12/09/22 04:29 12/09/22 04:29 Micro: Microbiology 12/07/22 08:08 Urine Culture - Final Urine,Clean Catch Escherichia coli A&P Assessment and plan (1) Incarcerated hernia: Appreciate surgical recommendations. Postoperative day 2. Continue NG tube placement. Management of NG tube as per surgical team. N.p.o. for now. Awaiting bowel functions. Continue ambulation, incentive spirometry. Zofran as needed, Protonix daily. Continue with IV medications. (2) Small bowel obstruction: Secondary to incarcerated hernia Management as above (3) Atherosclerotic heart disease of [place] coronary artery without angina pectoris: Plan to continue home medications when tolerating oral. Monitor for chest pain for now. (4) Diabetes mellitus with hyperglycemia, without long-term current use of insulin: Semaglutide on hold. HbA1c 8. Sliding-scale insulin correction every 6 hours. Qualifiers: Diabetes mellitus type: type 2 Qualified Code(s): E11.65 - Type 2 diabetes mellitus with hyperglycemia (5) Hypertension: Home oral medications on hold due to bowel obstruction Plan to restart home meds when tolerating oral or clamping trials. Goal blood pressure less than 140/90 mmHg. If needed can use IV hydralazine. Metoprolol 5 mg every 4 hours as needed for now. Qualifiers: Hypertension type: essential hypertension Qualified Code(s): I10 - Essential (primary) hypertension (6) Hyperlipidemia: Home oral meds on hold Qualifiers: Hyperlipidemia type: pure hypercholesterolemia Qualified Code(s): E78.00 - Pure hypercholesterolemia, unspecified (7) Psoriasis: Leflunomide on hold (8) COPD (chronic obstructive pulmonary disease) with emphysema: Not in acute exacerbation Pulmicort and Xopenex as needed (9) Chronic low back pain: Home gabapentin and celecoxib on hold Monitor for gabapentin withdrawal, restart when tolerating oral (10) Anxiety and depression: Restart home meds when clinically able (11) BMI 34.0-34.9,adult: Would benefit from weight loss Plan Hypothyroidism on chronic levothyroxine. Patient remains NPO. Switch to IV levothyroxine 25 mcg daily from tomorrow. Urine culture growing E. coli. Pansensitive. Continue with IV Levaquin to finish a 5-day course. We will switch to oral once able to take oral medications. Heparin 5000 every 12 hourly for DVT prophylaxis Protonix for PUD prophylaxis NPO. Discharge plan: Plan to discharge home with caregiver with home health once patient is medically stable, achieves bowel functions and is able to tolerate oral diet. Attestations Medical Necessity Statement*: Requires further hospitalization for postoperative care for incarcerated incisional hernia while resumption of bowel function exacerbated. Diagnoses Incarcerated hernia K46.0 Small bowel obstruction K56.609 Atherosclerotic heart disease of [place] coronary artery without angina pectoris I25.10 Diabetes mellitus with hyperglycemia, without long-term current use of insulin E11.65 Diabetes mellitus type: type 2 Hypertension I10 Hypertension type: essential hypertension Hyperlipidemia E78.00 Hyperlipidemia type: pure hypercholesterolemia Psoriasis L40.9 COPD (chronic obstructive pulmonary disease) with emphysema J43.9 Chronic low back pain M54.50; G89.29 Anxiety and depression F41.9; F32.9 BMI 34.0-34.9,adult Z68.34
[2022-12-09] MEDS: heparin 5,000 unit/mL INJ 1 mL 5000 UNIT SUBCUT (14:56)
[2022-12-09 15:54] LABS: Glucose Point of Care 137 mg/dL (70-110)
[2022-12-09 20:58] LABS: Glucose Point of Care 144 mg/dL (70-110)
[2022-12-10] VITALS (8 sets, daily range): BP systolic 130–150; BP diastolic 75–94; PULSE 61–76; RESP 16–18; TEMP 36.5–36.8; O2SAT 93–97
[2022-12-10] MEDS: heparin 5,000 unit/mL INJ 1 mL 5000 UNIT SUBCUT ×2 (01:59→14:14)
[2022-12-10 02:03] LABS: Glucose Point of Care 132 mg/dL (70-110)
[2022-12-10] MEDS: lactated ringers 1,000 ML 75 ML IV (04:48)
[2022-12-10 05:04] LABS: Basophils % 0.4 %; Eosinophils # 0.3 10^3/uL (0.0-0.8); Eosinophils % 3.6 %; Hematocrit 39.5 % (36-47); Lymphocytes % 11.7 %; Mean Corpuscular HGB Conc 33.7 g/dL (30-55); Mean Corpuscular Hemoglobin 29.5 pg (27-33); Mean Corpuscular Volume 87.6 fl (85-98); Mean Platelet Volume 9.4 fL (7.4-10.4); Monocytes # 0.8 10^3/uL (0.2-0.9); Monocytes % 9.6 %; Neutrophils # 6.19 10^3/uL (1.8-7.7); Neutrophils % 74.1 %; Nucleated Red Blood Cells % 0 %; Platelet Count 309 10^3/cmm (157-399); Red Blood Count 4.51 10^6/uL (3.85-5.65); Red Cell Distribution Width 12.6 % (12.1-15.1); White Blood Count 8.35 10^3/uL (3.29-11.43)
[2022-12-10 05:28] LABS: Alanine Aminotransferase 10 U/L (0-33); Albumin Level 2.9 g/dL (3.5-5.2); Alkaline Phosphatase 50 U/L (35-105); Anion Gap 16.4 (5-19); Aspartate Amino Transferase 15 U/L (0-32); Blood Urea Nitrogen 11 mg/dL (8-23); Calcium 8.5 mg/dL (8.5-10.5); Carbon Dioxide 25 mmol/L (22-29); Chloride 97 mmol/L (98-107); Globulin 3.1 g/dL (1.3-4.6); Glucose 167 mg/dL (65-115); Osmolality Calculated 283 mOsm/kg (285-295); Potassium 3.4 mmol/L (3.5-5.1); Sodium 135 mmol/L (136-145); Total Bilirubin 0.5 mg/dL (0.15-1.2)
[2022-12-10 05:29] LABS: Magnesium 1.7 mg/dL (1.7-2.3)
[2022-12-10 05:33] LABS: Glucose Point of Care 227 mg/dL (70-110)
[2022-12-10] MEDS: HYDROmorphone 1 mg/mL INJ 1 mL 0.4 MG IVP (05:35)
[2022-12-10 05:41] LABS: Folate Level 14.6 ng/mL (4.8-37.3)
[2022-12-10 08:52] LABS: Glucose Point of Care 178 mg/dL (70-110)
[2022-12-10] MEDS: levofloxacin-dextrose 5 % 500 MG/100 ML PREMIX 100 MG IV (09:13)
[2022-12-10] MEDS: insulin lispro 100 unit/1 mL SUBCUT ×3 (09:52→17:27)
[2022-12-10] MEDS: pantoprazole 40 mg SDV IVP (10:39)
[2022-12-10] MEDS: levothyroxine 100 mcg SDV 25 MCG IVP (10:50)
--- NOTE | 2022-12-10 11:00 | PC.SOCIAL ---
IMM update IMM updated with patient and family at bedside. Verbalized an understanding. Copy PG 2 provided. Initialled, dated, timed, and placed in chart.
[2022-12-10] MEDS: benzonatate 100 mg Capsule PO ×3 (11:26→21:01)
[2022-12-10] MEDS: HYDROcodone-acetaminophen 7.5-325 mg Tablet 1 TAB PO (11:26)
--- NOTE | 2022-12-10 11:36 | PM.PN ---
Subjective Subjective: Tolerating clear liquid diet and still passing flatus. No bowel movement yet Vitals/I&O/Wt Last Vital Signs Temp 98.2 F 12/10/22 11:06 Pulse 74 12/10/22 11:06 Resp 18 12/10/22 11:06 BP 136/84 12/10/22 11:06 Pulse Ox 96 12/10/22 11:06 O2 Del Method Nasal Cannula 12/10/22 11:06 O2 Flow Rate 2 12/10/22 09:26 12/09/22 12/10/22 12/10/22 22:59 06:59 14:59 Intake Total 1553.333 / 1893.333 975 / 2868.333 720 / 720 Output Total 250 / 250 200 / 450 Balance 1303.333 / 1643.333 775 / 2418.333 720 / 720 Physical Exam Narrative: General: No acute distress, awake alert and oriented x3 Abdomen: Soft, nondistended, appropriately tender to palpation, no guarding rebound or masses Incisions intact without erythema or exudate Data 12/10/22 04:35 12/10/22 04:35 Micro: Microbiology 12/07/22 08:08 Urine Culture - Final Urine,Clean Catch Escherichia coli A&P Assessment and plan (1) Incarcerated incisional hernia: (2) Small bowel obstruction: Plan Status post laparoscopic repair of incarcerated incisional hernia with mesh IV fluids Full liquid diet May be advance to soft diet and discharged home from a surgical perspective after first bowel movement No lifting pushing pulling over 15 pounds for 6 weeks Follow-up in my office in 2 weeks May use binder for comfort Incentive spirometer use Medical management per primary Attestations Medical Necessity Statement*: Per primary Coding Level of Care Code Acute Code for Chg Fwd Diagnoses Incarcerated incisional hernia K43.0 Small bowel obstruction K56.609
[2022-12-10 13:44] LABS: Glucose Point of Care 199 mg/dL (70-110)
[2022-12-10] MEDS: gabapentin 400 mg Capsule 800 MG PO ×2 (14:14→21:01)
--- NOTE | 2022-12-10 14:40 | P.PN_ITS ---
Subjective Subjective: No acute events overnight. Yesterday NG tube was removed and patient was started on clear liquid diet which she tolerated well. Diet has been advanced to full liquid diet by surgical recommendations today. Patient continues to pass flatus without any bowel movements for now. Otherwise has remained hemodynamically stable and afebrile. States pain is well controlled until she is coughing when she has pain at surgical site. Blood work appreciated for stable CBC, CMP showing mild hypokalemia down to 3.4, stable creatinine 0.4, blood sugars mildly elevated with hypoalbuminemia. Medications: Reviewed: Yes Vitals/I&O/Wt Last Vital Signs Temp 98.2 F 12/10/22 11:06 Pulse 74 12/10/22 11:06 Resp 18 12/10/22 11:06 BP 136/84 12/10/22 11:06 Pulse Ox 96 12/10/22 11:06 O2 Del Method Nasal Cannula 12/10/22 11:06 O2 Flow Rate 2 12/10/22 09:26 12/09/22 12/10/22 12/10/22 22:59 06:59 14:59 Intake Total 1553.333 / 1893.333 975 / 2868.333 960 / 960 Output Total 250 / 250 200 / 450 250 / 250 Balance 1303.333 / 1643.333 775 / 2418.333 710 / 710 Physical Exam Narrative: General: Patient is awake and alert. Very pleasant. Head: Normocephalic. Atraumatic. EOM intact. NGT w dark bilious colored output. Neck: No JVD. Cardiovascular: RRR. No gallops. No murmurs. No peripheral edema. Lungs: Breath sounds are diminished bilateral bases, no use of accessory muscles, no crackles or wheezes. Wearing nasal cannula support. Skin: No jaundice. No rashes. Abdomen: Hypoactive bowel sounds, abdomen soft. 3 trocar sites clean dry and intact. Extremities: No cyanosis or clubbing. Musculoskeletal: No swollen or erythematous joints. Neurological: Moves all 4 extremities. No myoclonus. Data 12/10/22 04:35 12/10/22 04:35 Micro: Microbiology 12/07/22 08:08 Urine Culture - Final Urine,Clean Catch Escherichia coli A&P Assessment and plan (1) Incarcerated hernia: Appreciate surgical recommendations. Postoperative day 2. Continue NG tube placement. Management of NG tube as per surgical team. N.p.o. for now. Awaiting bowel functions. Continue ambulation, incentive spirometry. Zofran as needed, Protonix daily. Continue with IV medications. (2) Small bowel obstruction: Secondary to incarcerated hernia Management as above (3) Atherosclerotic heart disease of [place] coronary artery without angina pectoris: Plan to continue home medications when tolerating oral. Monitor for chest pain for now. (4) Diabetes mellitus with hyperglycemia, without long-term current use of insulin: Semaglutide on hold. HbA1c 8. Sliding-scale insulin correction every 6 hours. Qualifiers: Diabetes mellitus type: type 2 Qualified Code(s): E11.65 - Type 2 diabetes mellitus with hyperglycemia (5) Hypertension: Home oral medications on hold due to bowel obstruction Plan to restart home meds when tolerating oral or clamping trials. Goal blood pressure less than 140/90 mmHg. If needed can use IV hydralazine. Metoprolol 5 mg every 4 hours as needed for now. Qualifiers: Hypertension type: essential hypertension Qualified Code(s): I10 - Essential (primary) hypertension (6) Hyperlipidemia: Home oral meds on hold Qualifiers: Hyperlipidemia type: pure hypercholesterolemia Qualified Code(s): E78 .00 - Pure hypercholesterolemia, unspecified (7) Psoriasis: Leflunomide on hold (8) COPD (chronic obstructive pulmonary disease) with emphysema: Not in acute exacerbation Pulmicort and Xopenex as needed (9) Chronic low back pain: Home gabapentin and celecoxib on hold Monitor for gabapentin withdrawal, restart when tolerating oral (10) Anxiety and depression: Restart home meds when clinically able (11) BMI 34.0-34.9,adult: Would benefit from weight loss Plan Hypothyroidism on chronic levothyroxine. Patient remains NPO. Switch to IV levothyroxine 25 mcg daily from tomorrow. Urine culture growing E. coli. Pansensitive. Continue with IV Levaquin to finish a 5-day course. We will switch to oral once able to take oral medi cations. Heparin 5000 every 12 hourly for DVT prophylaxis Protonix for PUD prophylaxis Full liquid diet Plan for the day: Continue with full liquid diet. Decrease IV fluid to 50 cc/h. If tolerating diet during the day we will stop IV fluids. Out of bed to chair, bowel regimen. Pain medication changed to hydrocodone 5 mg every 6 hours as needed. Discussed with patient that we should limit the amount of pain medication she is getting as that would also help with bowel movements. Patient is agreeable. As patient is tolerating oral with restart home gabapentin 800 mg 3 times daily. Switch IV levothyroxine to oral 50 mcg daily. Goal blood pressure less than 140/90 mmHg. Blood pressures controlled for now. Holding off on home dose of atenolol and amlodipine. Insulin sliding scale before meals and at bedtime. Continue with Levaquin which will also cover for E. coli in the urine for overall 7-day course. Last dose for now on 12/14. Replete potassium with 40 mg oral. Care discussed in detail with surgical team, patient and patient's caregiver at bedside. Discharge plan: Plan to discharge home with caregiver with home health once patient is medically stable, achieves bowel functions and is able to tolerate oral diet. Attestations Medical Necessity Statement*: Requires further hospitalization for postoperative care for incarcerated hernia with small bowel obstruction as diet is gradually advanced and bowel functions are achieved Diagnoses Incarcerated hernia K46.0 Small bowel obstruction K56.609 Atherosclerotic heart disease of [place] coronary artery without angina pectoris I25.10 Diabetes mellitus with hyperglycemia, without long-term current use of insulin E11.65 Diabetes mellitus type: type 2 Hypertension I10 Hypertension type: essential hypertension Hyperlipidemia E78.00 Hyperlipidemia type: pure hypercholesterolemia Psoriasis L40.9 COPD (chronic obstructive pulmonary disease) with emphysema J43.9 Chronic low back pain M54.50; G89.29 Anxiety and depression F41.9; F32.9 BMI 34.0-34.9,adult Z68.34
[2022-12-10] MEDS: potassium chloride ER 20 mEq Tablet 40 MEQ PO (16:17)
[2022-12-10 16:51] LABS: Glucose Point of Care 158 mg/dL (70-110)
[2022-12-10 21:07] LABS: Glucose Point of Care 135 mg/dL (70-110)
[2022-12-11] MEDS: heparin 5,000 unit/mL INJ 1 mL 5000 UNIT SUBCUT (03:29)
[2022-12-11 04:00] VITALS: BP 125/65; PULSE 72; RESP 16; TEMP 36.5; O2SAT 96
[2022-12-11 05:12] LABS: Basophils % 0.6 %; Eosinophils # 0.4 10^3/uL (0.0-0.8); Eosinophils % 6.9 %; Hematocrit 38.3 % (36-47); Mean Corpuscular HGB Conc 33.4 g/dL (30-55); Mean Corpuscular Hemoglobin 29.2 pg (27-33); Mean Corpuscular Volume 87.4 fl (85-98); Mean Platelet Volume 9.2 fL (7.4-10.4); Monocytes # 0.7 10^3/uL (0.2-0.9); Monocytes % 11.4 %; Neutrophils # 4.01 10^3/uL (1.8-7.7); Neutrophils % 64.3 %; Nucleated Red Blood Cells % 0 %; Platelet Count 320 10^3/cmm (157-399); Red Blood Count 4.38 10^6/uL (3.85-5.65); Red Cell Distribution Width 12.6 % (12.1-15.1); White Blood Count 6.24 10^3/uL (3.29-11.43)
[2022-12-11 05:37] LABS: Magnesium 1.8 mg/dL (1.7-2.3)
[2022-12-11 05:41] LABS: Alanine Aminotransferase 10 U/L (0-33); Albumin Level 2.7 g/dL (3.5-5.2); Alkaline Phosphatase 57 U/L (35-105); Anion Gap 13.6 (5-19); Aspartate Amino Transferase 14 U/L (0-32); Blood Urea Nitrogen 8 mg/dL (8-23); Calcium 8.6 mg/dL (8.5-10.5); Carbon Dioxide 27 mmol/L (22-29); Chloride 103 mmol/L (98-107); Globulin 3.1 g/dL (1.3-4.6); Glucose 151 mg/dL (65-115); Osmolality Calculated 291 mOsm/kg (285-295); Potassium 3.6 mmol/L (3.5-5.1); Sodium 140 mmol/L (136-145); Total Bilirubin 0.5 mg/dL (0.15-1.2); Total Protein 5.8 g/dL (6.6-8.7)
[2022-12-11] MEDS: levothyroxine 50 mcg Tablet PO (05:42)
[2022-12-11 06:51] LABS: Glucose Point of Care 153 mg/dL (70-110)
[2022-12-11 08:00] VITALS: BP 168/84; PULSE 70; PULSE 74; RESP 16; RESP 17; TEMP 36.6; O2SAT 95; O2SAT 97
[2022-12-11] MEDS: gabapentin 400 mg Capsule 800 MG PO ×2 (08:14→16:04)
[2022-12-11] MEDS: benzonatate 100 mg Capsule PO ×2 (08:14→16:04)
[2022-12-11] MEDS: insulin lispro 100 unit/1 mL SUBCUT (08:15)
[2022-12-11] MEDS: levofloxacin-dextrose 5 % 500 MG/100 ML PREMIX 100 MG IV (08:15)
[2022-12-11] MEDS: pantoprazole 40 mg SDV IVP (08:55)
--- NOTE | 2022-12-11 10:30 | P.DS_ITS ---
Discharge Providers Date of Admission: 12/07/22 05:59 Date of Discharge: December 11, 2022 Attending Provider at Admission: Heidi Peterson MD Attending Provider at Discharge: Fredrick Lujan MD Consults: Surgery: Dr. Gatica Primary Care Provider: RANDY Covarrubias Diagnoses at Discharge Discharge Diagnosis (1) Incarcerated hernia: Status: Acute (2) Small bowel obstruction: Status: Acute (3) Atherosclerotic heart disease of [place] coronary artery without angina pectoris: Status: Chronic Permanent problem details: Coronary calcifications noted on CT imaging (4) Diabetes mellitus with hyperglycemia, without long-term current use of insulin: Status: Chronic Qualifiers: Diabetes mellitus type: type 2 Qualified Code(s): E11.65 - Type 2 diabetes mellitus with hyperglycemia (5) Hypertension: Status: Chronic Qualifiers: Hypertension type: essential hypertension Qualified Code(s): I10 - Essential (primary) hypertension (6) Hyperlipidemia: Status: Chronic Qualifiers: Hyperlipidemia type: pure hypercholesterolemia Qualified Code(s): E78.00 - Pure hypercholesterolemia, unspecified (7) Psoriasis: Status: Chronic (8) COPD (chronic obstructive pulmonary disease) with emphysema: Status: Chronic (9) Chronic low back pain: Status: Chronic (10) Anxiety and depression: Status: Chronic (11) BMI 34.0-34.9,adult: Status: Acute Reason for Visit Reason for Visit: abd pain Brief History: History as per HPI: Linda Kelly is a 71 year old female who presented to the emergency room with chief complaint of abdominal pain.? She has had a ventral hernia for some time.? Every now and then it will protrude but usually reduces and she does not think much about it.? Over the last couple of weeks it has been protruding more frequently and she has noticed some abdominal discomfort.? The last couple of days this has significantly worsened.? Pain was rated severe.? She was having vomiting.? No blood was noted in the vomitus.? Her last bowel movement was maybe Wednesday or of last week.? She has chronic constipation so that is not unusual for her.? She does not know if she has even been passing any flatus because she has been vomiting so much.? With the pain and vomiting she came into the emergency room for evaluation.? ER physician was able to partially reduce the ventral hernia.? Initial lactate was 3.0.? Case was discussed with Dr. Gatica on-call for surgery who will see her.? She has had previous hysterectomy, appendectomy and tubal ligation.? The ventral hernia appeared, she thinks, after her hysterectomy.? No recent new complaints of chest pain.? She has been short of breath with the nausea.? She has a history of psoriasis on leflunomide chronically with celecoxib.? She is chronically on beta-blockade, amlodipine, diuretic therapy and cholesterol medicine.? She was unable to keep medications down due to her vomiting.? She has not had previous complications from anesthesia or surgeries.? She is on Ozempic for her diabetes.? She has a history of coronary calc ifications noted on CT imaging which is being managed medically. She is being admitted to hospitalist service. Hospital Course Hospital Course Patient was admitted to the hospital for evaluation management. Surgery was consulted. She underwent laparoscopic repair of incarcerated hernia x3 on 12/07. She tolerated the procedure well. Postoperative. Was uncomplicated and diet was gradually advanced as per her bowel functions. Patient hospitalization was otherwise unremarkable. During hospitalization her blood cultures remain negative, urine culture was positive for E. coli. Antibiotics have been continued as per sensitivities. Patient has been at her baseline physical capabilities and has had bowel movements during hospitalization. Home health has been arranged for safe discharge planning. She has been discharged home in hemodynamically stable condition with advised to not take leflunomide for next 2 weeks. Her dose of atenolol has been decreased for now to 25 mg twice daily. She is to check her blood pressures daily and maintain a blood pressure diary and follow-up with her primary care provider within the next 2 weeks for further adjustment of medications. She is to take full liquid diet for next 3 to 4 days followed by mechanical soft for a week before advancing to a regular diet. She has been discharged hemodynamically stable condition. Physical Exam Narrative: General: Patient is awake and alert. Very pleasant. Head: Normocephalic. Atraumatic. EOM intact. NGT w dark bilious colored output. Neck: No JVD. Cardiovascular: RRR. No gallops. No murmurs. No peripheral edema. Lungs: Breath sounds are diminished bilateral bases, no use of accessory muscles, no crackles or wheezes. Wearing nasal cannula support. Skin: No jaundice. No rashes. Abdomen: Hypoactive bowel sounds, abdomen soft. 3 trocar sites clean dry and intact. Extremities: No cyanosis or clubbing. Musculoskeletal: No swollen or erythematous joints. Neurological: Moves all 4 extremities. No myoclonus. Discharge Data Studies Completed and Pending Completed Studies During Hospitalization Category Date Time Status CT abdomen pelvis w con* [id number] Urgent Cat Scan 12/07/22 01:01 Completed XR chest 1V portable [id number] Stat Exams 12/07/22 03:05 Completed Pending at discharge Category Date Time Status MAG [Magnesium] AM LABS Lab 12/12/22 04:00 Ordered PHOS [Phosphorus] AM LABS Lab 12/12/22 04:00 Ordered PHOS [Phosphorus] AM LABS Lab 12/13/22 04:00 Ordered Radiology Impressions Abdomen/Pelvis CT 12/07/22 01:01 IMPRESSION: 1. Complex ventral small bowel containing hernia as described, with evidence of a associated enteritis and small bowel obstruction. Advise surgical consultation. 2. No abscess or free air. 3. Postop findings as described with a few partially calcified mesenteric nodules. These may be due to treated disease such as carcinoid. This requires correlation. 4. Multiple chronic findings above. 5. Call to provider has been initiated. COMMENTS: Consistent with the [employer]'s Incidental Findings Committee white paper (J Am Carrie Radiol 2018): Any incidental renal lesion less than 1 cm or classified as too small to characterize, or any incidental cystic renal lesion characterized as simple-appearing, is likely benign. No follow-up imaging is recommended for these lesions per consensus recommendations based on imaging criteria. ADDENDUM: 12/07/22 0221 THIS REPORT CONTAINS FINDINGS THAT MAY BE CRITICAL TO PATIENT CARE. The findings were verbally communicated via telephone conference at 2:19 AM CDT on 12/07/2022 with JULISA GARDENR. The findings were acknowledged and understood. Chest X-Ray 12/07/22 03:05 IMPRESSION: NGT in place. Microbiology 12/07/22 08:08 Urine,Clean Catch Urine Culture - Final Escherichia coli Laboratory Results WBC 6.24 10^3/uL (3.29-11.43) 12/11/22 04:30 RBC 4.38 10^6/uL (3.85-5.65) 12/11/22 04:30 Hgb 12.80 g/dL (11.27-16.99) 12/11/22 04:30 Hct 38.3 % (36-47) 12/11/22 04:30 MCV 87.4 fl (85-98) 12/11/22 04:30 MCH 29.2 pg (27-33) 12/11/22 04:30 MCHC 33.4 g/dL (30-55) 12/11/22 04:30 RDW 12.6 % (12.1-15.1) 12/11/22 04:30 Plt Count 320 10^3/cmm (157-399) 12/11/22 04:30 MPV 9.2 fL (7.4-10.4) 12/11/22 04:30 Neut % (Auto) 64.3 % 12/11/22 04:30 Lymph % (Auto) 16.0 % 12/11/22 04:30 Bent % (Auto) 11.4 % 12/11/22 04:30 Eos % (Auto) 6.9 % 12/11/22 04:30 Baso % (Auto) 0.6 % 12/11/22 04:30 Neut # (Auto) 4.01 10^3/uL (1.8-7.7) 12/11/22 04:30 Lymph # (Auto) 1.0 10^3/uL (0.8-4.8) 12/11/22 04:30 Bent # (Auto) 0.7 10^3/uL (0.2-0.9) 12/11/22 04:30 Eos # (Auto) 0.4 10^3/uL (0.0-0.8) 12/11/22 04:30 Baso # (Auto) 0.0 10^3/uL (0.0-0.1) 12/11/22 04:30 Nucleated RBC % (auto) 0 % 12/11/22 04:30 Nucleated RBCs # 0.0 /100WBC 12/11/22 04:30 Sodium 140 mmol/L (136-145) 12/11/22 04:30 Potassium 3.6 mmol/L (3.5-5.1) 12/11/22 04:30 Chloride 103 mmol/L (98-107) 12/11/22 04:30 Carbon Dioxide 27 mmol/L (22-29) 12/11/22 04:30 Anion Gap 13.6 (5-19) 12/11/22 04:30 BUN 8 mg/dL (8-23) 12/11/22 04:30 Creatinine 0.5 mg/dL (0.5-0.9) 12/11/22 04:30 GFR Calculation Not Reportable 12/11/22 04:30 Glucose 151 mg/dL (65-115) H 12/11/22 04:30 POC Glucose 153 mg/dL (70-110) H 12/11/22 06:48 Estimat Average Glucose 183 12/07/22 00:15 Hemoglobin A1c 8.0 % (4.0-6.0) H 12/07/22 00:15 Calculated Osmolality 291 mOsm/kg (285-295) 12/11/22 04:30 Lactic Acid 1.6 mmol/L (0.5-2.2) 12/07/22 04:30 Calcium 8.6 mg/dL (8.5-10.5) 12/11/22 04:30 Phosphorus 2.0 mg/dL (2.5-4.5) L 12/11/22 04:30 Magnesium 1.8 mg/dL (1.7-2.3) 12/11/22 04:30 Iron 17 ug/dL (37-145) L 12/09/22 04:29 TIBC 207 mcg/dl 12/09/22 04:29 % Saturation 8.2 % (20-50) L 12/09/22 04:29 Unsat Iron Binding 190 ug/dL (112-347) 12/09/22 04:29 Total Bilirubin 0.5 mg/dL (0.15-1.2) 12/11/22 04:30 AST 14 U/L (0-32) 12/11/22 04:30 ALT 10 U/L (0-33) 12/11/22 04:30 Alkaline Phosphatase 57 U/L (35-105) 12/11/22 04:30 C-Reactive Protein 60.7 mg/L (0.0-4.9) H 12/07/22 00:15 Total Protein 5.8 g/dL (6.6-8.7) L 12/11/22 04:30 Albumin 2.7 g/dL (3.5-5.2) L 12/11/22 04:30 Globulin 3.1 g/dL (1.3-4.6) 12/11/22 04:30 Lipase 50 U/L (13-60) 12/07/22 00:15 Vitamin B12 637 pg/mL (232-1245) 12/09/22 04:29 Folate 14.6 ng/mL (4.8-37.3) 12/10/22 04:35 Urine Color Yellow (Yellow) 12/07/22 08:08 Urine Appearance Hazy (CLEAR) A 12/07/22 08:08 Urine pH 5 (5-7) 12/07/22 08:08 Ur Specific [place] 1.020 (1.005-1.030) 12/07/22 08:08 Urine Protein 3+ (Negative) H 12/07/22 08:08 Urine Glucose (UA) 2+ (Normal) H 12/07/22 08:08 Urine Ketones 1+ (Negative) H 12/07/22 08:08 Urine Blood 2+ (Negative) H 12/07/22 08:08 Urine Nitrate Negative (Negative) 12/07/22 08:08 Urine Bilirubin 1+ (Negative) H 12/07/22 08:08 Urine Urobilinogen 1 mg/dL (Negative) H 12/07/22 08:08 Ur Leukocyte Esterase Negative (Negative) 12/07/22 08:08 Urine RBC 0-4 /hpf (0-2) H 12/07/22 08:08 Urine WBC 5-10 /hpf (0-5) H 12/07/22 08:08 Ur Squamous Epith Cells 5-10 /hpf (0-5) H 12/07/22 08:08 Amorphous Sediment Not Reportable 12/07/22 08:08 Urine Bacteria 2+ /hpf (NONE) H 12/07/22 08:08 Hyaline Casts Rare /lpf 12/07/22 08:08 Urine Mucus Trace /hpf 12/07/22 08:08 Vitals Last Vital Signs Temp 98 F 12/11/22 08:00 Pulse 74 12/11/22 08:00 Resp 17 12/11/22 08:00 BP 168/84 12/11/22 08:00 Pulse Ox 95 12/11/22 08:00 O2 Del Method Room Air 12/11/22 08:00 O2 Flow Rate 2 12/11/22 04:00 Discharge Plan Discharge Patient Disposition: Home Health Service Condition: Stable Prescriptions: New benzonatate 100 mg Capsule 100 mg PO TID Qty: 10 0RF hydrocodone-acetaminophen 7.5-325 mg Tablet 1 tab PO Q6H PRN (Reason: Moderate Pain) Qty: 10 0RF Continued Centrum Silver 400-250 mcg tablet,chewable 1 tab PO QAM aspirin 81 mg tablet,chewable 81 mg PO QAM ascorbic acid (vitamin C) 500 mg tablet 500 mg PO QAM citalopram [Celexa] 20 mg tablet 20 mg PO BID Qty: 60 2RF gabapentin 800 mg tablet 800 mg PO TID Qty: 90 2RF hydroxyzine pamoate 25 mg capsule 25 mg PO TID PRN (Reason: anxiety) Qty: 90 2RF (DME) blood-glucose meter [OneTouch Ultra2 Meter] Kit See Rx Instructions .Route Qty: 1 0RF Rx Instructions: As directed (DME) OneTouch Ultra Test Strip See Rx Instructions .Route Qty: 100 5RF Rx Instructions: one daily zinc acetate 50 mg (zinc) Capsule 50 mg PO DAILY levalbuterol HCl 0.63 mg/3 mL solution for nebulization 0.63 mg INHALATION TID PRN (Reason: unknown) potassium chloride 10 mEq capsule, extended release 10 meq PO QAM clobetasol 0.05 % cream 1 applic topical BID PRN (Reason: unknown) amlodipine 5 mg tablet 5 mg PO QPM levothyroxine 50 mcg tablet 50 mcg PO QAM Pulmicort 0.5 mg/2 mL suspension for nebulization 0.5 mg inhalation BID PRN (Reason: unknown) Singulair 10 mg tablet 10 mg PO BEDTIME ergocalciferol (vitamin D2) 1,250 mcg (50,000 unit) capsule 1,250 mcg PO Q7D Rx Instructions: on Claritin 10 mg tablet 10 mg PO QAM Tricor 145 mg tablet 145 mg PO BEDTIME Symbicort 80-4.5 mcg/actuation HFA aerosol inhaler 2 puff inhalation Q12H PRN (Reason: unknown) Ozempic 1 mg/dose (4 mg/3 mL) pen injector 1 mg SUBCUT Q7D Rx Instructions: on wed atenolol 50 mg tablet 25 mg PO BID Qty: 60 2RF Held leflunomide 20 mg tablet 20 mg PO QAM Hold Instructions: Resume on 12/18/22. Discontinued celecoxib 100 mg capsule 100 mg PO BID Qty: 60 2RF furosemide [Lasix] 20 mg tablet 20 mg PO QAM Qty: 30 2RF Discharge Orders: Discharge Order (Routine); Ordered 12/11/22 Ordered By: Fredrick Lujan Referrals: [facility] Home Service Set Up [Other] [facility] ([facility]) [Outside] Gerald Gatica DO [Physician] - (We have notified your physician's clinic of the need for a follow-up appointment to be scheduled. If you have not heard from them within the next 2 business days, please call them directly. You may also reach out to our school office manager at [phone] and she can assist you.) Karina Funez, BRODERICK-C [Primary Care Provider] - (We have notified your physician's clinic of the need for a follow-up appointment to be scheduled. If you have not heard from them within the next 2 business days, please call them directly. You may also reach out to our school office manager at [phone] and she can assist you.) Discharge Diet: As Directed Discharge Activity: Resume usual activity and Increase activity as tolerated Patient Instructions: Benzonatate (By mouth), Hydrocodone/Acetaminophen (By mouth), Ventral Hernia Repair (GEN), Opioid Safety Activity Restrictions/Additional Instructions: Continue full liquid diet for 4 days followed by mechanical soft diet for a week and then to regular diet gradually. No lifting pushing pulling over 15 pounds for 6 weeks Follow-up in my office in 2 weeks May use binder for comfort Incentive spirometer use. Please do not take leflunomide and celecoxib for 2 weeks. Dose of atenolol for now has been changed to 25 mg twice daily. Please check your blood pressure daily at home maintain a blood pressure diary and follow-up with your primary care provider within next 2 weeks for further adjustment of medications. Discharge Attestations Time Spent in Discharge Care*: greater than 30 min Specific Discharge Activities: educating patient, educating and/or supporting family/caregiver, discussing with pcp/other providers, discussing with nurse case manager/social workers/dc planners, documenting/other paperwork and evaluating patient/reviewing data Status at Discharge: Cognitive status at discharge: cognitively intact , Behavioral status at discharge: cooperative , Functional status at discharge: independent ambulation , Overall status at discharge: patient is back to baseline Quality Metrics Clinical Quality Measures [ No reported AMI, CVA or VTE this stay] Coding Level of Care Code 86049 Total time (in minutes) for Discharge: 60 Diagnoses Incarcerated hernia K46.0 Small bowel obstruction K56.609 Atherosclerotic heart disease of [place] coronary artery without angina pectoris I25.10 Diabetes mellitus with hyperglycemia, without long-term current use of insulin E11.65 Diabetes mellitus type: type 2 Hypertension I10 Hypertension type: essential hypertension Hyperlipidemia E78.00 Hyperlipidemia type: pure hypercholesterolemia Psoriasis L40.9 COPD (chronic obstructive pulmonary disease) with emphysema J43.9 Chronic low back pain M54.50; G89.29 Anxiety and depression F41.9; F32.9 BMI 34.0-34.9,adult Z68.34
[2022-12-11 11:59] LABS: Glucose Point of Care 139 mg/dL (70-110)
[2022-12-11 12:00] VITALS: BP 117/77; PULSE 72; RESP 17; TEMP 36.5; O2SAT 96
[2022-12-11 15:47] VITALS: BP 159/93; PULSE 81; RESP 18; TEMP 36.1; O2SAT 93
[2022-12-11 15:49] VITALS: O2SAT 95; O2SAT 96
[2022-12-11] MEDS: HYDROcodone-acetaminophen 7.5-325 mg Tablet 1 TAB PO (16:04)
[2022-12-11 16:08] VITALS: BP 159/93; PULSE 81; RESP 18; TEMP 36.1; O2SAT 93
== END 2022-12-11 16:20 | disposition home health service (06) | DRG 336 ==
LOC: ER 12-07 04:36 → MEDSURG 12-07 05:59
PROVIDERS: Internal Medicine; Surgery; Admitting Provider Hospitalist; Emergency Provider Emergency Medicine; PCP Nurse Practitioner; Visit Provider Student in an Organized Health Care Education/Training Program
PROC: 0WQF4ZZ Repair Abdominal Wall, Percutaneous Endoscopic Approach (ICD-10-PCS; principal; 2022-12-07 14:30)
DX: K43.9 Ventral hernia without obstruction or gangrene (principal); K56.609 Unspecified intestinal obstruction, unspecified as to partial versus complete obstruction; N39.0 Urinary tract infection, site not specified; K66.0 Peritoneal adhesions (postprocedural) (postinfection); B96.20 Unspecified Escherichia coli [E. coli] as the cause of diseases classified elsewhere; K59.09 Other constipation; L40.9 Psoriasis, unspecified; E11.65 Type 2 diabetes mellitus with hyperglycemia; Z79.82 Long term (current) use of aspirin; Z79.85 Long-term (current) use of injectable non-insulin antidiabetic drugs; F41.9 Anxiety disorder, unspecified; F32.A Depression, unspecified; I25.10 Atherosclerotic heart disease of native coronary artery without angina pectoris; G89.29 Other chronic pain; M54.50 Low back pain, unspecified; J43.9 Emphysema, unspecified; Z86.16 Personal history of COVID-19; E78.5 Hyperlipidemia, unspecified; I10 Essential (primary) hypertension; D63.8 Anemia in other chronic diseases classified elsewhere; D50.9 Iron deficiency anemia, unspecified; E78.00 Pure hypercholesterolemia, unspecified; Z87.891 Personal history of nicotine dependence; E03.9 Hypothyroidism, unspecified
CPT/HCPCS: 36415; 36416; 36600; 51702; 71045; 71275; 74018; 74176; 74177; 80048; 80053; 81001; 81003; 82607; 82728; 82746; 82803; 82962; 83036; 83540; 83550; 83605; 83630; 83690; 83735; 83880; 84100; 84145; 84443; 84484; 85025; 85378; 85610; 86140; 87040; 87077; 87086; 87186; 87426; 87493; 87506; 92523; 92610; 93005; 93970; 94640; 94760; 94799; 96372; 96374; 96375; 96376; 97110; 97116; 97161; 97167; 99285; C1781; C9113; J0330; J1170; J1200; J1644; J1650; J1815; J1956; J2250; J2270; J2405; J2704; J2710; J3010; J3490; J7030; J7120; J7614; J7626; Q9967

== ENCOUNTER 2022-12-14 13:19 | Inpatient (IN) | payer MEDICARE, MEDICAID, SELFPAY ==
[2022-12-14] VITALS (9 sets, daily range): BP systolic 136–152; BP diastolic 75–93; PULSE 78–95; RESP 16–18; TEMP 36.4–37; O2SAT 93–96; BMI 34.7
--- NOTE | 2022-12-14 14:08 | CT_ITS ---
WS: [id number] CT ABDOMEN AND PELVIS NONCONTRAST HISTORY: Abdominal pain, recent laparoscopic repair incarcerated hernia. TECHNIQUE: Imaging performed through the abdomen and pelvis. Coronal and sagittal reformats are submi tted. All CT scans at [facility] use at least one of these dose optimization techniques: auto mated exposure control; mA and/or kV adjustment per patient size (includes targeted exams where dose is matched to clinical indication); or iterative reconstruction. DLP: 1014.13 mGy.cm COMPARISON: 12/07/2022 Lower thorax: Lung bases are clear. Visualized heart is normal. Small hiatal hernia. Liver: Diffuse hepatic steatosis with mild hepatic enlargement. Gallbladder: Prior cholecystectomy. Pancreas: Normal size and attenuation. Normal pancreatic duct. No pancreatitis or mass. Spleen: Normal. Adrenal glands: Normal. No mass. Right kidney: Normal size kidney with no mass or hydronephrosis. Left kidney: Normal size kidney with no mass or hydronephrosis. Aorta: Mild atherosclerosis abdominal aorta with no aneurysm. Tiny amount of free fluid in the pelvis. Soft tissue edema along the anterior abdominal wall. There i s a spiculated mass measuring 1.9 cm with dense central calcification in the RIGHT mesentery. Mild ad jacent stranding. GI tract: High-grade small bowel obstruction. Small bowel loops are measuring just over 3 cm. There i s an incarcerated loop of small bowel which is obstructed herniating through the ventral abdominal wa ll at the site of prior surgical repair. Small bowel is dilated on both sides of incarcerated hernia. There is mild wall thickening. No pneumatosis at this time. Prior appendectomy. Abdominal wall: Ventral abdominal wall hernias with incarcerated small bowel at the site of the prior surgical repair. Pelvis: Small amount of free fluid in the pelvis. Osseous structures: Advanced degenerative changes throughout the thoracic and lumbar spines. L4 anter olisthesis by 5 mm. IMPRESSION: 1. High-grade small bowel obstruction secondary to an incarcerated ventral abdominal wall hernia. Re commend surgical consultation. Suspect recurrent hernia at the surgical site. 2. Small amount of free fluid in the pelvis. 3. Hepatic steatosis and prior cholecystectomy. 4. 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 Dif ferential includes carcinoid and desmoid tumors. There is a closely associated small bowel loop with wall thickening. On the prior CT IV contrast was given and this loop is hyperemic. Recommend further evaluation for carcinoid or malignancy after patient's acute small bowel obstruction and incarcerated hernia have resolved.
--- NOTE | 2022-12-14 14:22 | ED_ITS ---
HPI - Abdominal Pain General: Chief Complaint: Abdominal Pain Stated Complaint: abd pain Time Seen by Provider: 12/14/22 14:08 Source: patient Mode of arrival: wheelchair History of Present Illness: 80 yo patient recently hospitalized for incarcerated hernia and small bowel obstruction. Was seen by Dr. Gatica Had laparoscopic repair of incarcerated hernias and lysis of adhesions. She is having increasingly severe abdominal pain and bilious vomitus overnight. She was discharged home 3 days ago after the abdominal wall hernia repair and reduction of the bowel obstruction. She denies any medic easy melena hematemesis cough cramps no fever. MD elicited complaint: abdominal pain Onset (ago): week(s) Location: Diffuse Severity: severe Quality: cramping Exacerbating factors: eating and movement Associated Symptoms: Reports anorexia, change in bowel habits, GI cramping, nausea and vomiting; Denies bloating, chills, coffee ground emesis, constipation, diarrhea, dysuria, fever(s), hematochezia, hematemesis and melena Review of Systems Const: Reports: change in appetite and malaise; Denies: fever(s), chills, body aches or fatigue Card: Denies: chest pain, edema, dyspnea on exertion or orthopnea Resp: Denies: dyspnea, productive cough or non-productive cough GI: Reports: abdominal pain, nausea, vomiting, GI cramping and change in bowel habits; Denies: hematemesis, coffee ground emesis, diarrhea, constipation, bloating, hematochezia or melena : Denies: flank pain, difficulty voiding, dysuria, urinary frequency or urinary urgency Skin/Breast: Denies: rash or pruritus PFSH ED PFSH: Medical History Allergic rhinitis due to pollen Anxiety and depression Atherosclerotic heart disease of [place] coronary artery without angina pectoris Coronary calcifications noted on CT imaging Chronic left lumbar radiculopathy Chronic low back pain COPD (chronic obstructive pulmonary disease) with emphysema COVID-19 (2020) Diabetes mellitus with hyperglycemia, without long-term current use of insulin Family history of ankylosing spondylitis HLA B27 (HLA B27 positive) Hyperlipidemia Hypertension Hypertriglyceridemia Hypothyroidism Polyarthralgia Primary osteoarthritis, unspecified ankle and foot Psoriasis Vitamin D deficiency, unspecified Surgical History History of appendectomy History of hysterectomy for cancer History of tubal ligation Family History Father Cancer Diabetes CAD (coronary artery disease) Brother Diabetes Daughter Diabetes CAD (coronary artery disease) Rheumatoid arthritis Other Hypertension Denies family history of Lupus Psoriasis Social History Smoking and tobacco status: former smoker Quit status (tobacco): has quit using tobacco Second hand smoke exposure: No Alcohol intake: never Substance/Drug Use: never Adopted: No Caregiver/support person: No Lives independently: Yes Household members: spouse Housing: House Marital status: Number of children: 3 service: No Current occupational status: unemployed Do you think of yourself as: Straight/Heterosexual Current gender identity: Female Physical Exam Const: GENERAL APPEARANCE: cooperative ORIENTATION/CONSCIOUSNESS: Yes awake , Yes oriented to person, Yes oriented to place and Yes oriented to time HENMT: COMMON NORMALS: normocephalic, atraumatic and hearing grossly normal bilaterally HEAD & SCALP: normocephalic and atraumatic Resp: COMMON NORMALS: normal respiratory effort, No retractions, No use of accessory muscles and clear to auscultation bilaterally AUSCULTATION: clear to auscultation bilaterally Cardio: COMMON NORMALS: regular rate, regular rhythm and No murmurs present (Cardio) RATE: regular rate RHYTHM: regular rhythm GI: INSPECTION: Yes abdominal distension AUSCULTATION: Yes Absent bowel sounds PALPATION: Yes Tenderness to palpation present (GI) PERCUSSION: tympanic to percussion Extremity: COMMON NORMALS: normal to inspection, capillary refill normal, no clubbing, cyanosis or edema, no calf tenderness and no pedal edema Neuro: SENSORIUM/ORIENTATION: Yes oriented to person, Yes oriented to place and Yes oriented to time Skin: COMMON NORMALS: no rashes or lesions noted GENERAL SKIN EXAM: no rashes or lesions noted Course Vital Signs: Vital signs: Vital Signs Temperature 98.6 F 12/16/22 08:00 Pulse Rate 68 12/16/22 08:00 Respiratory Rate 18 12/16/22 08:00 Blood Pressure 161/86 12/16/22 08:00 Pulse Oximetry 94 12/16/22 08:00 Oxygen Delivery Me thod Room Air 12/16/22 08:00 Oxygen Flow Rate 2 12/15/22 08:25 MDM - Abdominal Pain Medical Decision Making Discussed with Dr. Cruz who is on-call for surgery. He is reviewed the films and discussed with Dr. Gatica they are going to repeat his CT with oral contrast to further evaluate Dr. Gatica was concerned that this may be a seroma in the abdominal wall from surgery. Patient be given oral contrast and CT repeated in 2-2 and half hours after ingestion of the oral contrast. Discussed again with radiology and with Dr. Cruz. Have asked Dr. Cruz to see the patient and discussed the plan with the patient and family. Medical Records I reviewed the patient's medical records. Lab Data I reviewed the patient's lab results. 12/16/22 05:15 12/16/22 05:15 Labs/Radiology: Radiology Impressions Abdomen/Pelvis CT 12/14/22 17:00 IMPRESSION: 1. Prominent fluid in the small bowel without suggestive of an enteritis. 2. Umbilical region hernia containing fluid and air with possible bowel similar to prior exam. 3. Left lateral abdominal wall hernia containing omentum and fluid measuring up to 4.8 cm in size. 4. Mild anasarca suspected. 5. Avila catheter with a small amount of air in the urinary bladder, likely iatrogenic. 6. Small amount nonspecific fluid in the pelvis. 7. Enteric tube tip in the stomach. 8. Bibasilar atelectasis versus infiltrate. 9. Hepatic steatosis. 10. Cholecystectomy. 11. Perinephric edema bilaterally likely reflecting renal insufficiency, please correlate for pyelonephritis. Chest X-Ray 12/14/22 17:30 IMPRESSION: No acute findings. Venous Duplex 12/14/22 17:34 IMPRESSION: No evidence of deep vein thrombosis. Laboratory Results WBC 10.29 10^3/uL (3.29-11.43) 12/14/22 14:26 RBC 5.42 10^6/uL (3.85-5.65) 12/14/22 14:26 Hgb 15.60 g/dL (11.27-16.99) 12/14/22 14:26 Hct 45.8 % (36-47) 12/14/22 14: MCV 84.5 fl (85-98) L 12/14/22 14:26 MCH 28.8 pg (27-33) 12/14/22 14: MCHC 34.1 g/dL (30-55) 12/14/22 14: RDW 12.8 % (12.1-15.1) 12/14/22 14: Plt Count 418 10^3/cmm (157-399) H 12/14/22 14: MPV 9.3 fL (7.4-10.4) 12/14/22 14: Neut % (Auto) 87.4 % 12/14/22 14: Lymph % (Auto) 5.2 % 12/14/22 14: [place] % (Auto) 5.2 % 12/14/22 14: Eos % (Auto) 1.0 % 12/14/22 14: Baso % (Auto) 0.4 % 12/14/22 14: Neut # (Auto) 9.00 10^3/uL (1.8-7.7) H 12/14/22 14: Lymph # (Auto) 0.5 10^3/uL (0.8-4.8) L 12/14/22 14: [place] # (Auto) 0.5 10^3/uL (0.2-0.9) 12/14/22 14: Eos # (Auto) 0.1 10^3/uL (0.0-0.8) 12/14/22 14: Baso # (Auto) 0.0 10^3/uL (0.0-0.1) 12/14/22 14: Nucleated RBC % (auto) 0 % 12/14/22 14: Nucleated RBCs # 0.0 /100WBC 12/14/22 14:26 Sodium 136 mmol/L (136-145) 12/14/22 14: Potassium 4.0 mmol/L (3.5-5.1) 12/14/22 14: Chloride 98 mmol/L (98-107) 12/14/22 14: Carbon Dioxide 25 mmol/L (22-29) 12/14/22 14: Anion Gap 17.0 (5-19) 12/14/22 14:26 BUN 8 mg/dL (8-23) 12/14/22 14:26 Creatinine 0.4 mg/dL (0.5-0.9) L 12/14/22 14:26 GFR Calculation Not Reportable 12/14/22 14:26 Glucose 226 mg/dL (65-115) H 12/14/22 14:26 Calculated Osmolality 287 mOsm/kg (285-295) 12/14/22 14:26 Lactic Acid 1.6 mmol/L (0.5-2.2) 12/14/22 14:26 Calcium 8.9 mg/dL (8.5-10.5) 12/14/22 14:26 Total Bilirubin 0.5 mg/dL (0.15-1.2) 12/14/22 14:26 AST 25 U/L (0-32) 12/14/22 14:26 ALT 18 U/L (0-33) 12/14/22 14:26 Alkaline Phosphatase 71 U/L (35-105) 12/14/22 14:26 Total Protein 7.1 g/dL (6.6-8.7) 12/14/22 14:26 Albumin 3.4 g/dL (3.5-5.2) L 12/14/22 14:26 Globulin 3.7 g/dL (1.3-4.6) 12/14/22 14:26 Lipase 72 U/L (13-60) H 12/14/22 14:26 Discharge Plan Discharge Patient Disposition: Admitted As Inpatient Admit Provider: Cesar Cruz Clinical Impression: Incarcerated incisional hernia, Ventral hernia, Small bowel obstruction Condition: Stable Coding Level of Care Code ED [employer] Operator for Marysol Muniz
[2022-12-14 14:41] LABS: Basophils % 0.4 %; Eosinophils # 0.1 10^3/uL (0.0-0.8); Hematocrit 45.8 % (36-47); Lymphocytes # 0.5 10^3/uL (0.8-4.8); Lymphocytes % 5.2 %; Mean Corpuscular HGB Conc 34.1 g/dL (30-55); Mean Corpuscular Hemoglobin 28.8 pg (27-33); Mean Corpuscular Volume 84.5 fl (85-98); Mean Platelet Volume 9.3 fL (7.4-10.4); Monocytes # 0.5 10^3/uL (0.2-0.9); Monocytes % 5.2 %; Neutrophils % 87.4 %; Nucleated Red Blood Cells % 0 %; Platelet Count 418 10^3/cmm (157-399); Red Blood Count 5.42 10^6/uL (3.85-5.65); Red Cell Distribution Width 12.8 % (12.1-15.1); White Blood Count 10.29 10^3/uL (3.29-11.43)
[2022-12-14 14:56] LABS: Alanine Aminotransferase 18 U/L (0-33); Albumin Level 3.4 g/dL (3.5-5.2); Alkaline Phosphatase 71 U/L (35-105); Aspartate Amino Transferase 25 U/L (0-32); Blood Urea Nitrogen 8 mg/dL (8-23); Calcium 8.9 mg/dL (8.5-10.5); Carbon Dioxide 25 mmol/L (22-29); Chloride 98 mmol/L (98-107); Globulin 3.7 g/dL (1.3-4.6); Glucose 226 mg/dL (65-115); Lipase 72 U/L (13-60); Osmolality Calculated 287 mOsm/kg (285-295); Sodium 136 mmol/L (136-145); Total Bilirubin 0.5 mg/dL (0.15-1.2); Total Protein 7.1 g/dL (6.6-8.7)
[2022-12-14] MEDS: ondansetron 2 mg/ML SDV 2 mL 4 MG IVP (14:56)
[2022-12-14] MEDS: sodium chloride 0.9% 1,000 ML 999 ML IV (14:56)
[2022-12-14] MEDS: morphine 4 mg/mL SDV 1 mL IVP ×4 (14:56→23:24)
[2022-12-14 15:41] LABS: Lactic Sepsis W/Reflex 1.6 mmol/L (0.5-2.2)
--- NOTE | 2022-12-14 17:00 | CTR_ITS ---
PROCEDURE INFORMATION: Exam: CT Abdomen And Pelvis Without Contrast Exam date and time: 12/14/2022 8:59 PM Age: 72 years old Clinical indication: Prior surgery; Surgery date: 3-7 days post-operative; Surgery type: Hernia repair on 12/07/2022; Patient HX: Persistent sbo post incarcerated hernia surgery on 12/07/2022; Additional info: Sbo, CT 2-2 1/2 hrs TECHNIQUE: Imaging protocol: Computed tomography of the abdomen and pelvis without contrast. Radiation optimization: All CT scans at this facility use at least one of these dose optimization techniques: automated exposure control; mA and/or kV adjustment per patient size (includes targeted exams where dose is matched to clinical indication); or iterative reconstruction. Other contrast: Oral, READICAT, 450; REPORTING DATA: Count of CT and Cardiac NM exams in prior 12 months: This patient has received [address] and 0 known cardiac nuclear medicine studies in the 12 months prior to the current study. COMPARISON: CT abdomen pelvis wo con [id number] 12/14/2022 2:42 PM RADIATION DOSE METRICS: Total DLP (mGy-cm): 1080.01 FINDINGS: Tubes, catheters and devices: Enteric tube tip in the stomach. Lungs: Bibasilar atelectasis versus infiltrate. Liver: Hepatic steatosis. Gallbladder and bile ducts: Cholecystectomy. Pancreas: Normal. No ductal dilation. Spleen: Normal. No splenomegaly. Adrenal glands: Normal. No mass. Kidneys and ureters: Perinephric edema bilaterally likely reflecting renal insufficiency, please correlate for pyelonephritis. Stomach and bowel: Prominent fluid in the small bowel without suggestive of an enteritis. Umbilical region hernia containing fluid and air with possible bowel similar to prior exam. Appendix: No evidence of appendicitis. Intraperitoneal space: Unremarkable. No free air. No significant fluid collection. Vasculature: Unremarkable. No abdominal aortic aneurysm. Lymph nodes: Unremarkable. No enlarged lymph nodes. Urinary bladder: Avila catheter with a small amount of air in the urinary bladder, likely iatrogenic. Reproductive: Unremarkable as visualized. Bones/joints: Unremarkable. No acute fracture. Soft tissues: Left lateral abdominal wall hernia containing omentum and fluid measuring up to 4.8 cm in size. Mild anasarca suspected. Other findings: Small amount nonspecific fluid in the pelvis. CT/CT abdomen pelvis wo con [id number] IMPRESSION: 1. Prominent fluid in the small bowel without suggestive of an enteritis. 2. Umbilical region hernia containing fluid and air with possible bowel similar to prior exam. 3. Left lateral abdominal wall hernia containing omentum and fluid measuring up to 4.8 cm in size. 4. Mild anasarca suspected. 5. Avila catheter with a small amount of air in the urinary bladder, likely iatrogenic. 6. Small amount nonspecific fluid in the pelvis. 7. Enteric tube tip in the stomach. 8. Bibasilar atelectasis versus infiltrate. 9. Hepatic steatosis. 10. Cholecystectomy. 11. Perinephric edema bilaterally likely reflecting renal insufficiency, please correlate for pyelonephritis.
--- NOTE | 2022-12-14 17:19 | PM.CONSULT ---
Providers/Reason For Consult Consulting Physician/Specialty*: General surgery Reason for Consult*: Small bowel obstruction Attending Physician: Cesar Cruz MD Primary Care Provider: RANDY Covarrubias History of Present Illness History of Present Illness Linda Kelly is a 72 year old female who is known to the surgery service, as she had a laparoscopic ventral hernia repair with mesh for an incarcerated ventral hernia last week by my colleague Dr. Gatica. Patient returns to the hospital today complaining of abdominal distention nausea and vomit. Upon arrival to the ED patient was a stable, vital signs within normal limits, white count noted to be normal. A CT scan of the abdomen and pelvis without contrast was done, initially read as a possible high-grade obstruction with hernia recurrence. We were involved for this finding. Per patient report she has been doing okay until yesterday when she noted some abdominal distention, this morning when she woke up she noticed some significant abdominal pain, she then developed 1 episode of bilious vomit and therefore presented to the ED. Medications/Allergies Home Medications Medication Instructions Recorded Confirmed Last Taken Type multivit with min-folic 1 tab PO QAM 04/25/19 12/14/22 12/14/22 History acid-lutein 400 mcg-250 mcg chewable tablet (Centrum Silver) ascorbic acid (vitamin C) 500 mg 500 mg PO QAM 10/16/20 12/14/22 12/14/22 History tablet aspirin 81 mg chewable tablet 81 mg PO QAM 10/16/20 12/14/22 12/14/22 History blood sugar diagnostic (OneTouch #100 ea 11/19/22 12/14/22 Unknown Rx Ultra Test strips) blood-glucose meter (OneTouch #1 ea 11/19/22 12/14/22 Unknown Rx Ultra2 Meter kit) citalopram 20 mg tablet (Celexa) 20 mg PO BID #60 tabs 11/19/22 12/14/22 12/14/22 Rx gabapentin 800 mg tablet 800 mg PO TID #90 tabs 11/19/22 12/14/22 12/14/22 Rx hydroxyzine pamoate 25 mg capsule 25 mg PO TID PRN anxiety #90 caps 11/19/22 12/14/22 12/14/22 Rx amlodipine 5 mg tablet 5 mg PO QPM 12/07/22 12/14/22 12/14/22 History budesonide 0.5 mg/2 mL suspension 0.5 mg inhalation BID PRN unknown 12/07/22 12/14/22 Unknown History for nebulization (Pulmicort) budesonide-formoterol HFA 80 2 puff inhalation Q12H PRN unknown 12/07/22 12/14/22 Unknown History mcg-4.5 mcg/actuation aerosol inhaler (Symbicort) clobetasol 0.05 % topical cream 1 applic topical BID PRN unknown 12/07/22 12/14/22 Unknown History ergocalciferol (vitamin D2) 1,250 1,250 mcg PO Q7D 12/07/22 12/14/22 12/14/22 History mcg (50,000 unit) capsule fenofibrate nanocrystallized 145 145 mg PO BEDTIME 12/07/22 12/14/22 12/13/22 History mg tablet (Tricor) leflunomide 20 mg tablet 20 mg PO QAM 12/07/22 12/14/22 Unknown History levalbuterol HCl 0.63 mg/3 mL 0.63 mg inhalation TID PRN unknown 12/07/22 12/14/22 12/14/22 History solution for nebulization levothyroxine 50 mcg tablet 50 mcg PO QAM 12/07/22 12/14/22 12/14/22 History loratadine 10 mg tablet (Claritin) 10 mg PO QAM 12/07/22 12/14/22 12/14/22 History montelukast 10 mg tablet 10 mg PO BEDTIME 12/07/22 12/14/22 12/13/22 History (Singulair) potassium chloride 10 mEq 10 meq PO QAM 12/07/22 12/14/22 12/14/22 History capsule,extended release semaglutide 1 mg/dose (4 mg/3 mL) 1 mg SUBCUT Q7D 12/07/22 12/14/22 12/11/22 History subcutaneous pen injector (Ozempic) zinc acetate 50 mg (zinc) capsule 50 mg PO DAILY 12/07/22 12/14/22 12/14/22 History atenolol 50 mg tablet 25 mg PO BID #60 tabs 12/11/22 12/14/22 12/14/22 Rx benzonatate 100 mg capsule 100 mg PO TID #10 caps 12/11/22 12/14/22 12/14/22 Rx hydrocodone 7.5 mg-acetaminophen 1 tab PO Q6H PRN Moderate Pain #10 12/11/22 12/14/22 12/14/22 Rx 325 mg tablet tabs loratadine 10 mg tablet 10 mg PO DAILY 12/14/22 12/14/22 12/14/22 History Allergies Allergy/AdvReac Type Severity Reaction Status Date / Time LUIS ENRIQUE Inhibitors Allergy UNKNOWN Verified 12/14/22 13:38 albuterol Allergy RAPID PULSE Verified 12/14/22 13:38 ceftriaxone [From Rocephin] Allergy UNKNOWN Verified 12/14/22 13:38 duloxetine [From Cymbalta] Allergy FELT Verified 12/14/22 13:38 STRANGE escitalopram [From Lexapro] Allergy UNKOWN Verified 12/14/22 13:38 ibuprofen Allergy UNKNOWN Verified 12/14/22 13:38 Penicillins Allergy UNKNOWN Verified 12/14/22 13:38 Sulfa (Sulfonamide Allergy UNKNOWN Verified 12/14/22 13:38 Antibiotics) INSECT STINGS Allergy EXCESSIVE Uncoded 12/14/22 13:38 SWELLING PFSH Acute PFSH: Medical History (Updated 12/14/22 @ 17:27 by Cesar Cruz MD) Allergic rhinitis due to pollen Anxiety and depression Atherosclerotic heart disease of [place] coronary artery without angina pectoris Coronary calcifications noted on CT imaging Chronic left lumbar radiculopathy Chronic low back pain COPD (chronic obstructive pulmonary disease) with emphysema COVID-19 (2020) Diabetes mellitus with hyperglycemia, without long-term current use of insulin Family history of ankylosing spondylitis HLA B27 (HLA B27 positive) Hyperlipidemia Hypertension Hypertriglyceridemia Hypothyroidism Polyarthralgia Primary osteoarthritis, unspecified ankle and foot Psoriasis Vitamin D deficiency, unspecified Surgical History History of appendectomy History of hysterectomy for cancer History of tubal ligation Family History Father Cancer Diabetes CAD (coronary artery disease) Brother Diabetes Daughter Diabetes CAD (coronary artery disease) Rheumatoid arthritis Other Hypertension Denies family history of Lupus Psoriasis Social History Smoking and tobacco status: former smoker Quit status (tobacco): has quit using tobacco Second hand smoke exposure: No Alcohol intake: never Substance/Drug Use: never Adopted: No Caregiver/support person: No Lives independently: Yes Household members: spouse Housing: House Marital status: Number of children: 3 service: No Current occupational status: unemployed Do you think of yourself as: Straight/Heterosexual Current gender identity: Female Vitals/I&O/Wt Last Vital Signs Temp 97.5 F L 12/14/22 13:38 Pulse 80 12/14/22 15:09 Resp 16 12/14/22 15:09 BP 152/93 12/14/22 15:09 Pulse Ox 96 12/14/22 16:10 O2 Del Method Nasal Cannula 12/14/22 16:10 O2 Flow Rate 2 12/14/22 16:10 12/14/22 12/14/22 12/14/22 06:59 14:59 22:59 Intake Total 1000 / 1000 Balance 1000 / 1000 Weight last 48 hrs Weight 215 lb Physical Exam Narrative: General : Patient is well developed , no acute distress, oriented x3 Head : Normal cephalic, a-traumatic. CV : Rate and rhythm are normal. Abdomen : Abdomen is soft, mildly tender, is distended, surgical incisions are well-healed. No evidence of peritoneal signs, anterior abdominal wall induration in the area overlying the previous hernia, which may be consistent with seroma. Back : non-tender to palpation, no CVA tenderness. Data 12/14/22 14:26 12/14/22 14:26 Micro: Microbiology 12/14/22 15:31 Blood Culture - Preliminary Blood SPECIMEN COLLECTED 12/14/22 14:26 Blood Culture - Preliminary Blood SPECIMEN COLLECTED A&P Assessment and plan (1) Small bowel obstruction: Plan After a complete history, physical examination and review of all available clinical data the following is my assessment. This is a patient known to my colleague Dr. Gatica who is 1 week status post laparoscopic repair of ventral hernia for incarcerated ventral hernia. We were consulted for a possible hernia recurrence with a small bowel obstruction. I have informed primary surgeon regarding the findings and physical examination of the patient, Dr. Gatica has also independently evaluated the CT scan of the abdomen, after review by myself and Dr. Gatica, with think anterior abdominal wall fluid collection is more likely consistent with a seroma than without recurrence, there is dilation of the intestine almost to the level of the terminal ileum, and which goes against the possibility of transition point at the level of the hernia. I have discussed the case with Dr. Fermin at radiology and the decision has been made to repeat the CT scan now with p.o. contrast. In the interim patient will be admitted to the surgical service, we will keep her n.p.o., and with IV fluids, will continue to monitor her progress and obtain daily labs. I have discussed the case and proposed plan with Dr. Gatica. He agrees with the plan, he has informed me that he will evaluate the patient this evening after which he will assume the care of this patient has she is known to him. Coding Level of Care Code Acute Code for Chg Fwd Diagnoses Small bowel obstruction K56.609
--- NOTE | 2022-12-14 17:30 | XRR_ITS ---
PROCEDURE INFORMATION: Exam: XR Chest Exam date and time: 12/14/2022 5:56 PM Age: 72 years old Clinical indication: Other: Hypoxia TECHNIQUE: Imaging protocol: Radiologic exam of the chest. Views: 1 view. COMPARISON: CR (CHEST, ) 12/07/2022 3:09 AM FINDINGS: Lungs: Unremarkable. No consolidation. Pleural spaces: Unremarkable. No pleural effusion. No pneumothorax. Heart/Mediastinum: Unremarkable. No cardiomegaly. Bones/joints: Unremarkable. XR/XR chest 1V portable [id number] IMPRESSION: No acute findings.
--- NOTE | 2022-12-14 17:34 | USR_ITS ---
PROCEDURE INFORMATION: Exam: US Duplex Lower Extremity Veins, Bilateral Exam date and time: 12/14/2022 10:43 PM Age: 72 years old Clinical indication: Other: Hypoxia; Patient HX: No SX yet, pending; Additional info: Immbolity, surgery, hypoxia TECHNIQUE: Imaging protocol: Real-time duplex ultrasound of the bilateral extremities with 2-D green scale, color Doppler flow and spectral waveform analysis including responses to compression and other maneuvers (when performed) with image documentation. Complete exam focused on the lower extremity veins. COMPARISON: CT abdomen pelvis wo con [id number] 12/14/2022 8:59 PM FINDINGS: Right deep veins: Unremarkable. The common femoral, femoral, proximal profunda femoral and popliteal veins are patent without thrombus. Normal Doppler waveforms. Normal compressibility and/or augmentation response. Left deep veins: Unremarkable. The common femoral, femoral, proximal profunda femoral and popliteal veins are patent without thrombus. Normal Doppler waveforms. Normal compressibility and/or augmentation response. Superficial veins: Bilateral saphenofemoral junctions are patent without thrombus. Soft tissues: Unremarkable. US/CV venous duplex [facility] [id number] IMPRESSION: No evidence of deep vein thrombosis.
--- NOTE | 2022-12-14 17:37 | PM.CONSULT ---
Providers/Reason For Consult Consulting Physician/Specialty*: general surgery Reason for Consult*: sbo Attending Physician: Cesar Cruz MD Primary Care Provider: RANDY Covarrubias History of Present Illness History of Present Illness Linda Kelly is a 72 year old female with a past medical history of type 2 diabetes mellitus, psoriasis, hypertension, anxiety and depression, hyperlipidemia, hypertriglyceridemia, history of emphysema, quit smoking 1988, recent hospitalization for small bowel obstruction status post laparoscopic repair of incarcerated incisional hernia with mesh who presents [facility] due to weakness, fatigue, poor appetite, nausea, vomiting, diarrhea, abdominal pain. Patient tells me that since getting home from the hospital she has weakness, fatigue, she tells me that she has been at her daughter's house, her daughter has been helping her with activities of daily living. She has stayed in bed most of the time due to weakness, fatigue, she does report diarrhea for the last 48 hours, no bloody or black stools reported, does report bilious emesis for the last 24 hours, last meal was Wednesday evening, which was a small liquid diet. She denies any fevers, chills, no shortness of breath, no lightheadedness, dizziness. She tells me that she is also been having abdominal pain, primarily in the left upper and left lower quadrant, with a poor appetite. Review of Systems Const: Reports: fatigue and malaise; Denies: fever(s) or chills Card: Denies: chest pain Resp: Denies: dyspnea or non-productive cough GI: Reports: abdominal pain, nausea, vomiting and diarrhea; Denies: coffee ground emesis, hematochezia or melena : Reports: dysuria; Denies: flank pain or difficulty voiding Musc: Reports: back pain Skin/Breast: Denies: rash Neuro: Denies: headache(s), frequent falls or dizziness Endo: Denies: polyuria or polydipsia Medications/Allergies Home Medications Medication Instructions Recorded Confirmed Last Taken Type multivit with min-folic 1 tab PO QAM 04/25/19 12/14/22 12/14/22 History acid-lutein 400 mcg-250 mcg chewable tablet (Centrum Silver) ascorbic acid (vitamin C) 500 mg 500 mg PO QAM 10/16/20 12/14/22 12/14/22 History tablet aspirin 81 mg chewable tablet 81 mg PO QAM 10/16/20 12/14/22 12/14/22 History blood sugar diagnostic (OneTouch #100 ea 11/19/22 12/14/22 Unknown Rx Ultra Test strips) blood-glucose meter (OneTouch #1 ea 11/19/22 12/14/22 Unknown Rx Ultra2 Meter kit) citalopram 20 mg tablet (Celexa) 20 mg PO BID #60 tabs 11/19/22 12/14/22 12/14/22 Rx gabapentin 800 mg tablet 800 mg PO TID #90 tabs 11/19/22 12/14/22 12/14/22 Rx hydroxyzine pamoate 25 mg capsule 25 mg PO TID PRN anxiety #90 caps 11/19/22 12/14/22 12/14/22 Rx amlodipine 5 mg tablet 5 mg PO QPM 12/07/22 12/14/22 12/14/22 History budesonide 0.5 mg/2 mL suspension 0.5 mg inhalation BID PRN unknown 12/07/22 12/14/22 Unknown History for nebulization (Pulmicort) budesonide-formoterol HFA 80 2 puff inhalation Q12H PRN unknown 12/07/22 12/14/22 Unknown History mcg-4.5 mcg/actuation aerosol inhaler (Symbicort) clobetasol 0.05 % topical cream 1 applic topical BID PRN unknown 12/07/22 12/14/22 Unknown History ergocalciferol (vitamin D2) 1,250 1,250 mcg PO Q7D 12/07/22 12/14/22 12/14/22 History mcg (50,000 unit) capsule fenofibrate nanocrystallized 145 145 mg PO BEDTIME 12/07/22 12/14/22 12/13/22 History mg tablet (Tricor) leflunomide 20 mg tablet 20 mg PO QAM 12/07/22 12/14/22 Unknown History levalbuterol HCl 0.63 mg/3 mL 0.63 mg inhalation TID PRN unknown 12/07/22 12/14/22 12/14/22 History solution for nebulization levothyroxine 50 mcg tablet 50 mcg PO QAM 12/07/22 12/14/22 12/14/22 History loratadine 10 mg tablet (Claritin) 10 mg PO QAM 12/07/22 12/14/22 12/14/22 History montelukast 10 mg tablet 10 mg PO BEDTIME 12/07/22 12/14/22 12/13/22 History (Singulair) potassium chloride 10 mEq 10 meq PO QAM 12/07/22 12/14/22 12/14/22 History capsule,extended release semaglutide 1 mg/dose (4 mg/3 mL) 1 mg SUBCUT Q7D 12/07/22 12/14/22 12/11/22 History subcutaneous pen injector (Ozempic) zinc acetate 50 mg (zinc) capsule 50 mg PO DAILY 12/07/22 12/14/22 12/14/22 History atenolol 50 mg tablet 25 mg PO BID #60 tabs 12/11/22 12/14/22 12/14/22 Rx benzonatate 100 mg capsule 100 mg PO TID #10 caps 12/11/22 12/14/22 12/14/22 Rx hydrocodone 7.5 mg-acetaminophen 1 tab PO Q6H PRN Moderate Pain #10 12/11/22 12/14/22 12/14/22 Rx 325 mg tablet tabs loratadine 10 mg tablet 10 mg PO DAILY 12/14/22 12/14/22 12/14/22 History Allergies Allergy/AdvReac Type Severity Reaction Status Date / Time LUIS ENRIQUE Inhibitors Allergy UNKNOWN Verified 12/14/22 13:38 albuterol Allergy RAPID PULSE Verified 12/14/22 13:38 ceftriaxone [From Rocephin] Allergy UNKNOWN Verified 12/14/22 13:38 duloxetine [From Cymbalta] Allergy FELT Verified 12/14/22 13:38 STRANGE escitalopram [From Lexapro] Allergy UNKOWN Verified 12/14/22 13:38 ibuprofen Allergy UNKNOWN Verified 12/14/22 13:38 Penicillins Allergy UNKNOWN Verified 12/14/22 13:38 Sulfa (Sulfonamide Allergy UNKNOWN Verified 12/14/22 13:38 Antibiotics) INSECT STINGS Allergy EXCESSIVE Uncoded 12/14/22 13:38 SWELLING PFSH Acute PFSH: Medical History Allergic rhinitis due to pollen Anxiety and depression Atherosclerotic heart disease of [place] coronary artery without angina pectoris Coronary calcifications noted on CT imaging Chronic left lumbar radiculopathy Chronic low back pain COPD (chronic obstructive pulmonary disease) with emphysema COVID-19 (2020) Diabetes mellitus with hyperglycemia, without long-term current use of insulin Family history of ankylosing spondylitis HLA B27 (HLA B27 positive) Hyperlipidemia Hypertension Hypertriglyceridemia Hypothyroidism Polyarthralgia Primary osteoarthritis, unspecified ankle and foot Psoriasis Vitamin D deficiency, unspecified Surgical History History of appendectomy History of hysterectomy for cancer History of tubal ligation Family History Father Cancer Diabetes CAD (coronary artery disease) Brother Diabetes Daughter Diabetes CAD (coronary artery disease) Rheumatoid arthritis Other Hypertension Denies family history of Lupus Psoriasis Social History Smoking and tobacco status: former smoker Quit status (tobacco): has quit using tobacco Second hand smoke exposure: No Alcohol intake: never Substance/Drug Use: never Adopted: No Caregiver/support person: No Lives independently: Yes Household members: spouse Housing: House Marital status: Number of children: 3 service: No Current occupational status: unemployed Do you think of yourself as: Straight/Heterosexual Current gender identity: Female Vitals/I&O/Wt Last Vital Signs Temp 97.5 F L 12/14/22 13:38 Pulse 80 12/14/22 15:09 Resp 16 12/14/22 15:09 BP 152/93 12/14/22 15:09 Pulse Ox 96 12/14/22 16:10 O2 Del Method Nasal Cannula 12/14/22 17:04 O2 Flow Rate 2 12/14/22 16:10 12/14/22 12/14/22 12/14/22 06:59 14:59 22:59 Intake Total 1000 / 1000 Balance 1000 / 1000 Weight last 48 hrs Weight 97.522 kg Physical Exam Const: COMMON NORMALS: no acute distress and patient oriented x3 GENERAL APPEARANCE: cooperative HENMT: COMMON NORMALS: normocephalic and Normal external nose present HEAD & SCALP: normocephalic FACE & SINUS: normal facial exam NOSE: Normal external nose present Eye: COMMON NORMALS: Equal, round and reactive pupils present, conjunctivae normal and no scleral icterus CONJUNCTIVA: Yes conjunctivae normal PUPIL: Yes Equal, round and reactive pupils present Neck/C-Spine: COMMON NORMALS: full ROM and no lymphadenopathy Lymph: LYMPHATIC: no lymphadenopathy noted Chest: COMMONS NORMALS: normal inspection of the chest Resp: COMMON NORMALS: normal respiratory effort, No retractions, No use of accessory muscles and clear to auscultation bilaterally AUSCULTATION: clear to auscultation bilaterally Cardio: COMMON NORMALS: regular rate, regular rhythm, S1 normal heart sound present, S2 normal heart sound present, No murmurs present (Cardio) and Peripheral pulses 2+ throughout RATE: regular rate RHYTHM: regular rhythm HEART SOUNDS: S1 normal heart sound present and S2 normal heart sound present PERIPHERAL PULSES: Peripheral pulses 2+ throughout GI: OTHER: Abdomen soft, distended, diffuse abdominal pain, to palpation, particularly in the left upper left lower quadrant, surgical site looks clean and dry, diminished bowel sounds in all 4 quadrants, no guarding, no rebound, no rigidity Extremity: COMMON NORMALS: normal to inspection, full ROM, capillary refill normal, no calf tenderness and no pedal edema Neuro: COMMON NORMALS: patient oriented x3, CN's II-XII intact bilaterally, moves all extremities, no focal motor deficits and no sensory deficits noted Psych: COMMON NORMALS: mental status grossly normal and cooperative Skin: COMMON NORMALS: turgor normal and no jaundice GENERAL SKIN EXAM: turgor normal OTHER: Bilateral feet onychomycosis Right foot, second digit, diabetic ulcer, healed over, thickened based Data 12/14/22 14:26 12/14/22 14:26 Micro: Microbiology 12/14/22 15:31 Blood Culture - Preliminary Blood SPECIMEN COLLECTED 12/14/22 14:26 Blood Culture - Preliminary Blood SPECIMEN COLLECTED A&P Assessment and plan (1) Small bowel obstruction: (2) Hypertension: Qualifiers: Hypertension type: essential hypertension Qualified Code(s): I10 - Essential (primary) hypertension (3) Adult hypothyroidism: (4) Anxiety and depression: (5) Diabetes mellitus with hyperglycemia, without long-term current use of insulin: Qualifiers: Diabetes mellitus type: type 2 Qualified Code(s): E11.65 - Type 2 diabetes mellitus with hyperglycemia (6) Hypertriglyceridemia: (7) BMI 34.0-34.9,adult: (8) Type 2 diabetes mellitus: Plan Small bowel obstruction 1.? High-grade small bowel obstruction secondary to an incarcerated ventral abdominal wall hernia. Recommend surgical consultation. Suspect recurrent hernia at the surgical site. 2.? Small amount of free fluid in the pelvis. 3.? Hepatic steatosis and prior cholecystectomy. 4.? 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 Differential includes carcinoid and desmoid tumors. There is a closely associated small bowel loop with wall thickening. On the prior CT IV contrast was given and this loop is hyperemic. Recommend further evaluation for carcinoid or malignancy after patient's acute small bowel obstruction and incarcerated hernia have resolved. Plan -General surgery primary -Currently n.p.o. -General surgery wants to do a CT scan abdomen pelvis with oral contrast -Decision of NG tube to be made after further imaging -Zofran, Reglan, promethazine for nausea -Morphine for pain control -IV fluids -SCDs for DVT prophylaxis, Lovenox on hold if there is any possibility of surgery -Full code Complaints of diarrhea -Stool studies -Has been on Levaquin Type 2 diabetes mellitus Low-dose sliding scale Immobility after surgery, no calf pain, calf swelling but will do venous ultrasound for DVT Hypoxia on 3 L, chest x-ray, Pro-Dorian, CRP, venous ultrasound, serial EKGs, BMP, telemetry monitoring Psoriasis hold leflunomide She also has on her right foot, second digit, superficial diabetic ulcer, healed over, with skin thickening, needs to be evaluated with podiatry as outpatient, Onychomycosis bilateral extremities Consult Attestations Medical Necessity Statement: Patient requires hospitalization, inpatient, greater than 2 midnights, for small bowel obstruction Diagnoses Small bowel obstruction K56.609 Hypertension I10 Hypertension type: essential hypertension Adult hypothyroidism E03.9 Anxiety and depression F41.9; F32.9 Diabetes mellitus with hyperglycemia, without long-term current use of insulin E11.65 Diabetes mellitus type: type 2 Hypertriglyceridemia E78.1 BMI 34.0-34.9,adult Z68.34 Type 2 diabetes mellitus E11.9
--- NOTE | 2022-12-14 18:02 | ECG_ITS ---
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 Measurements Intervals [place] Rate: 85 P: 18 TN: 185 QRS: 24 QRSD: 97 T: 55 QT: 398 QTc: 476 Interpretive Statements SINUS RHYTHM ANTERIOR MYOCARDIAL INFARCTION , PROBABLY OLD [40+ ms Q WAVE AND/OR ST/T ABNORMALITY IN V3/V4] POSSIBLE INFERIOR MYOCARDIAL INFARCTION , PROBABLY OLD [30 ms Q WAVE IN II/aVF] Compared to ECG 12/07/2022 10:52:13 Myocardial infarct finding now present First degree AV block no longer present ST (T wave) deviation no longer present Prolonged QT interval no longer present Electronically Signed On 12-14-2022 20:22:46 CDT by Praveen Lamb M.D. [id number]
[2022-12-14] MEDS: D5-NS 0.45% + KCL 20 mEq 20 MEQ/1,000 ML BAG 100 MEQ IV (18:18)
[2022-12-14 19:02] LABS: Add Urine Microscopic? NO; Charge for UA Resulting for Rev
[2022-12-14 19:26] LABS: INR 1.07 (0.8-1.2)
[2022-12-14 19:32] LABS: Bilirubin Urine Neg (Negative); Blood Urine Neg (Negative); Glucose Urine UA 1+ (Normal); Ketones Urine Negative (Negative); Leukocyte Esterase Urine Negative (Negative); Nitrate Urine Negative (Negative); Protein Urine Neg (Negative); Urine Appearance Clear (CLEAR); Urine Color Yellow (Yellow); Urobilinogen Urine Norm (Negative); pH Urine 6 (5-7)
[2022-12-14 19:34] LABS: Troponin(5th) Baseline 11 ng/L (0-10)
[2022-12-14 19:42] LABS: NT Pro B Type Natriuretic Pept 205 pg/mL (0-125); Procalcitonin 0.14 ng/mL (0-0.5)
[2022-12-14 20:12] LABS: C Reactive Protein 67.8 mg/L (0.0-4.9); Ferritin 571 ng/mL (15-150); Iron 27 ug/dL (37-145); Thyroid Stimulating Hormone 2.09 uIU/mL (0.27-4.20)
[2022-12-14] MEDS: barium sulfate 450 mL Oral Susp PO (21:08)
--- NOTE | 2022-12-14 21:23 | ECG_ITS ---
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 Measurements Intervals [place] Rate: 74 P: 16 PA: 190 QRS: 9 QRSD: 93 T: 47 QT: 420 QTc: 468 Interpretive Statements SINUS RHYTHM ANTERIOR MYOCARDIAL INFARCTION , PROBABLY OLD [40+ ms Q WAVE AND/OR ST/T ABNORMALITY IN V3/V4] PROBABLE INFERIOR MYOCARDIAL INFARCTION , OF INDETERMINATE AGE [35 ms Q WAVE IN II/aVF] Compared to ECG 12/14/2022 18:02:35 No significant changes Electronically Signed On 12-16-2022 0:01:31 CDT by Evette Betancourt M.D. [id number]
[2022-12-14 21:44] LABS: Glucose Point of Care 190 mg/dL (70-110)
[2022-12-14 22:32] LABS: Troponin 5 2HR 8.68 ng/L (0-10); Troponin 5 2HR Delta -2.32 ABS# (0-10)
--- NOTE | 2022-12-14 23:34 | ECG_ITS ---
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 Measurements Intervals [place] Rate: 76 P: 18 NE: 188 QRS: 6 QRSD: 93 T: 33 QT: 394 QTc: 444 Interpretive Statements SINUS RHYTHM POSSIBLE ANTERIOR MYOCARDIAL INFARCTION , PROBABLY OLD [30 ms Q WAVE IN V3/V4, OR R < 0.2 mV IN V4] Compared to ECG 12/14/2022 21:23:33 No significant changes Electronically Signed On 12-16-2022 0:02:14 CDT by Evette Betancourt M.D. [id number]
[2022-12-15] VITALS (10 sets, daily range): BP systolic 117–150; BP diastolic 72–84; PULSE 62–77; RESP 16–18; TEMP 36.6–37; O2SAT 92–96
[2022-12-15 01:03] LABS: Basophils % 0.4 %; Eosinophils # 0.1 10^3/uL (0.0-0.8); Eosinophils % 1.5 %; Hematocrit 41.5 % (36-47); Lymphocytes % 13.2 %; Mean Corpuscular HGB Conc 33.3 g/dL (30-55); Mean Corpuscular Hemoglobin 28.7 pg (27-33); Mean Corpuscular Volume 86.3 fl (85-98); Mean Platelet Volume 9.1 fL (7.4-10.4); Monocytes # 0.8 10^3/uL (0.2-0.9); Monocytes % 10.3 %; Neutrophils # 5.39 10^3/uL (1.8-7.7); Neutrophils % 74.2 %; Nucleated Red Blood Cells % 0 %; Platelet Count 394 10^3/cmm (157-399); Red Blood Count 4.81 10^6/uL (3.85-5.65); Red Cell Distribution Width 12.9 % (12.1-15.1); White Blood Count 7.27 10^3/uL (3.29-11.43)
[2022-12-15 01:25] LABS: Blood Urea Nitrogen 10 mg/dL (8-23); Calcium 8.3 mg/dL (8.5-10.5); Carbon Dioxide 25 mmol/L (22-29); Chloride 102 mmol/L (98-107); Glucose 180 mg/dL (65-115); Magnesium 1.8 mg/dL (1.7-2.3); Osmolality Calculated 286 mOsm/kg (285-295); Sodium 136 mmol/L (136-145)
[2022-12-15 01:26] LABS: Anion Gap 13.1 (5-19); Potassium 4.1 mmol/L (3.5-5.1)
[2022-12-15 01:28] LABS: Troponin 5 6HR 9.54 ng/L (0-10); Troponin 5 6HR Delta -1.46 ng/L (0-12)
[2022-12-15] MEDS: D5-NS 0.45% + KCL 20 mEq 20 MEQ/1,000 ML BAG 100 MEQ IV (03:59)
[2022-12-15] MEDS: morphine 4 mg/mL SDV 1 mL IVP (04:05)
--- NOTE | 2022-12-15 06:00 | XR_ITS ---
WS: [id number] Exam: XR KUB portable [id number] Date/Time of Exam: 12/15/2022 4:41 AM Reason For Exam: sbo Small amounts of scattered large and small bowel gas noted suggesting mild ileus. No free air identif ied. No sign of organ enlargement. Surgical clips in the pelvis and upper RIGHT abdomen. Bony structu res are intact. Degenerative changes of the lower thoracic and lumbar spine as well as the hips. IMPRESSION: 1. Findings suggest mild ileus.
[2022-12-15 06:07] LABS: Glucose Point of Care 156 mg/dL (70-110)
--- NOTE | 2022-12-15 07:52 | PC.NURSE ---
stool sample collected at 0540 by cornelio
[2022-12-15] MEDS: insulin lispro 100 unit/1 mL SUBCUT ×3 (08:46→17:00)
[2022-12-15] MEDS: pantoprazole 40 mg SDV IVP (08:58)
[2022-12-15] MEDS: levothyroxine 100 mcg SDV 25 MCG IVP (09:07)
--- NOTE | 2022-12-15 09:37 | PC.CHAP ---
Pastoral Care Encounter/Spiritual Assessment Type of Contact [] Declined psychosocial rehabilitation counselor visit [] Patient/Family/Request visit [] Outpatient visit [] Follow-up visit [] Physician referral [] Code/Alert [x] Routine visit [] Staff referral [] Actively dying [] Patient sleeping [x] Family support [] [] Out of room [] Palliative care [] [] Receiving care in room [] Pre-surgical visit [] Trauma [] Long length of stay [] ICU visit [] Other: Relational/Emotional Strength [x] Patient feels connected with others/family/visitors/staff [] Distress [] Loneliness/isolation [] Abandonment Spirituality of Patient [x] Person of Emily [] Attends Hinduism of their Emily [x] Believes in Prayer [] Reads Bible or Amish materials [] There are Spiritual issues to be addressed Director Equipment Interventions [x] Prayer [x] Active listening [] Non-anxious presence [x] Spiritual/emotional support [] Crisis/trauma care [] Spiritual counseling [] Bereavement support [] Provided bereavement packet [] Provided Bible/devotional materials [] Provided toy/stuffed animal, coloring book to patient or family member [] Provided Communion [] Anointing/Alsey [] Salvation [x] Completed spiritual assessment [] Other: Impact on Illness or Injury [] Angry [] Fearful [] Anxious [] Often cries [] Exhaustion [] Unable to work [] Unable to attend latter-day [] Unable to walk/stand [] Unable to read [] Unable to drive [] Unable to eat/drink [] Unable to sleep [] Unable to be with family [] Patient intubated [] Other: Summary Time spent with patient 5 min
[2022-12-15] MEDS: aspirin 81 mg Chew Tablet PO (10:45)
[2022-12-15] MEDS: citalopram 20 mg Tablet PO ×2 (10:45→16:59)
[2022-12-15] MEDS: enoxaparin 40 mg/0.4 mL Syringe SUBCUT (10:45)
[2022-12-15] MEDS: atenolol 50 mg Tablet 25 MG PO ×2 (10:46→17:01)
[2022-12-15 11:38] LABS: Glucose Point of Care 158 mg/dL (70-110)
--- NOTE | 2022-12-15 11:44 | PM.PN ---
Subjective Subjective: Patient was seen this morning, she had a liquid bowel movement overnight, her abdominal distention and pain has improved, but she has been using pain medication her daughter at bedside tells me, no fevers, no chills, she feels weak and fatigued, patient is agreeable to [facility] facility stay, her NG tube was removed overnight, her diet has been advanced to clear liquids, denies any shortness of breath, currently off oxygen, Vitals/I&O/Wt Last Vital Signs Temp 97.9 F 12/15/22 08:00 Pulse 67 12/15/22 08:25 Resp 16 12/15/22 08:25 BP 131/75 12/15/22 08:00 Pulse Ox 95 12/15/22 08:25 O2 Del Method Nasal Cannula 12/15/22 08:25 O2 Flow Rate 2 12/15/22 08:25 12/14/22 12/15/22 12/15/22 22:59 06:59 14:59 Intake Total 1000 / 1000 1088.333 / 2088.333 675 / 675 Output Total 800 / 800 400 / 1200 Balance 200 / 200 688.333 / 888.333 675 / 675 Weight last 48 hrs Weight 97.522 kg Physical Exam Const: COMMON NORMALS: no acute distress and patient oriented x3 Resp: COMMON NORMALS: normal respiratory effort, No retractions, No use of accessory muscles and clear to auscultation bilaterally AUSCULTATION: clear to auscultation bilaterally Cardio: COMMON NORMALS: regular rate, regular rhythm, S1 normal heart sound present and S2 normal heart sound present RATE: regular rate RHYTHM: regular rhythm HEART SOUNDS: S1 normal heart sound present and S2 normal heart sound present GI: OTHER: Abdomen soft, distended, scattered bowel sounds in all 4 quadrants, no significant tenderness palpation of all 4 quadrants, no guarding, no rebound, no rigidity Extremity: COMMON NORMALS: no pedal edema Neuro: COMMON NORMALS: patient oriented x3 Psych: COMMON NORMALS: mental status grossly normal Urinary Catheter Management: Avila: Cath Placed During This Visit: no Reason for Continuing Indwelling Catheter: Acute Urinary Retention or Obstruction Data 12/15/22 00:45 12/15/22 00:45 Micro: Microbiology 12/15/22 05:40 Stool Lactoferrin - Final Stool C.difficile Toxin B Gene (PCR) - Final 12/14/22 15:31 Blood Culture - Preliminary Blood SPECIMEN COLLECTED 12/14/22 14:26 Blood Culture - Preliminary Blood SPECIMEN COLLECTED A&P Assessment and plan (1) Small bowel obstruction: (2) Hypertension: Qualifiers: Hypertension type: essential hypertension Qualified Code(s): I10 - Essential (primary) hypertension (3) Adult hypothyroidism: (4) Anxiety and depression: (5) Diabetes mellitus with hyperglycemia, without long-term current use of insulin: Qualifiers: Diabetes mellitus type: type 2 Qualified Code(s): E11.65 - Type 2 diabetes mellitus with hyperglycemia (6) Hypertriglyceridemia: (7) BMI 34.0-34.9,adult: (8) Type 2 diabetes mellitus: Plan Small bowel obstruction 1.? High-grade small bowel obstruction secondary to an incarcerated ventral abdominal wall hernia. Recommend surgical consultation. Suspect recurrent hernia at the surgical site. 2.? Small amount of free fluid in the pelvis. 3.? Hepatic steatosis and prior cholecystectomy. 4.? 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 Differential includes carcinoid and desmoid tumors. There is a closely associated small bowel loop with wall thickening. On the prior CT IV contrast was given and this loop is hyperemic. Recommend further evaluation for carcinoid or malignancy after patient's acute small bowel obstruction and incarcerated hernia have resolved. bowel obstruction IMPRESSION: 1. ? Prominent fluid in the small bowel without suggestive of an enteritis. 2. ? Umbilical region hernia containing fluid and air with possible bowel similar to prior exam. 3. ? Left lateral abdominal wall hernia containing omentum and fluid measuring up to 4.8 cm in size. 4. ? Mild anasarca suspected. 5. ? Avila catheter with a small amount of air in the urinary bladder, likely iatrogenic. 6. ? Small amount nonspecific fluid in the pelvis. 7. ? Enteric tube tip in the stomach. 8. ? Bibasilar atelectasis versus infiltrate. 9. ? Hepatic steatosis. 10. ? Cholecystectomy. 11. ? Perinephric edema bilaterally likely reflecting renal insufficiency, please correlate for pyelonephritis. Plan -General surgery primary -Currently on clears -Zofran, Reglan, promethazine for nausea -Morphine for pain control -IV fluids -SCDs for DVT prophylaxis, Lovenox -Full code Complaints of diarrhea -Stool studies, so far c diff negative -Has been on Levaquin Type 2 diabetes mellitus Low-dose sliding scale Immobility after surgery, no calf pain, venous us negative for dvt Hypoxia on 2L, chest x-ray no acyte findings, Pro-Dorian 0.14, CRP 67.8, will order abg and d dimer Psoriasis hold leflunomide She also has on her right foot, second digit, superficial diabetic ulcer, healed over, with skin thickening, needs to be evaluated with podiatry as outpatient, Onychomycosis bilateral extremities Generalized weakness, deconditioning, PT OT, speech therapy eval, dietary eval Attestations Medical Necessity Statement*: Patient requires hospitalization for bowel obstruction now with generalized weakness, hypoxia Diagnoses Small bowel obstruction K56.609 Hypertension I10 Hypertension type: essential hypertension Adult hypothyroidism E03.9 Anxiety and depression F41.9; F32.9 Diabetes mellitus with hyperglycemia, without long-term current use of insulin E11.65 Diabetes mellitus type: type 2 Hypertriglyceridemia E78.1 BMI 34.0-34.9,adult Z68.34 Type 2 diabetes mellitus E11.9
[2022-12-15 12:13] LABS: ABG PCO2 40.6 mmHg (35-45); ABG PH Result 7.44 (7.35-7.45); Arterial Blood Gas Hematocrit 38.3 % (37-47); Base Excess ABG 2.9 mmol/L (-2.0-2.0); Blood Gas Allen Test Pos; Blood Gas Operator Identificat WALCI; Blood Gas Sample Site Radial, left; Blood Gas Sample Type Arterial; HCO3 ABG 27.3 mmol/L (22-26); Oxygen Device ROOM AIR; PO2 ABG 71.9 mmHg (80.0-100.0)
[2022-12-15 12:45] LABS: D Dimer 2.82 ug/mLFEU (0-0.59)
--- NOTE | 2022-12-15 12:49 | CT_ITS ---
WS: [id number] CT CHEST ANGIOGRAPHY WITH REFORMATS HISTORY: HYPOXIA, WEAKNESS, ELEVATED D DIMER TECHNIQUE: Contiguous axial images are obtained through the chest during arterial injection of intrav enous contrast. Images are reconstructed to evaluate the pulmonary arteries. MIP imaging also reviewe d. All CT scans at [facility] use at least one of these dose optimization techniques: automat ed exposure control; mA and/or kV adjustment per patient size (includes targeted exams where dose is matched to clinical indication); or iterative reconstruction. CONTRAST: Omnipaque 350; 100 mL IV. DLP: 460.11 mGy.cm COMPARISON: 03/02/[address] Adequate but limited evaluation of the pulmonary arteries. Centrally there is no pulmonary embolism. Good opacification through the lobar and proximal segmental branches. Towards the subsegmental branch es the opacification is limited. No filling defect or pulmonary embolism is identified. Normal size a jose and pulmonary artery. No RIGHT heart strain. Normal size heart. No mediastinal or hilar adenopat hy. Minimally prominent RIGHT hilar lymph node at 13 mm. Subsegmental linear atelectasis LEFT lower lobe. Mild dependent changes at the lung bases. Liver is enlarged with hepatic steatosis. No adrenal mass. The stomach is not as distended as on the prior examination. Prior cholecystectomy. Degenerative spondylitic changes throughout the thoracic sp ine. IMPRESSION: 1. No pulmonary embolism. 2. Subsegmental areas of atelectasis in the lower lung moscoso. No pneumonia. No pneumothorax or pleur al effusion. Hepatic steatosis and prior cholecystectomy.
[2022-12-15] MEDS: iohexol 350 mg/mL 500 mL Btl (per mL) IV (14:58)
--- NOTE | 2022-12-15 15:43 | PM.PN ---
Subjective Subjective: Patient seen and examined. She reports that her abdominal pain went away after she had a bowel movement. Denies any nausea or vomiting. Vitals/I&O/Wt Last Vital Signs Temp 98.0 F 12/15/22 12:00 Pulse 70 12/15/22 12:00 Resp 16 12/15/22 12:00 BP 150/84 12/15/22 12:00 Pulse Ox 95 12/15/22 12:00 O2 Del Method Room Air 12/15/22 12:00 O2 Flow Rate 2 12/15/22 08:25 12/15/22 12/15/22 12/15/22 06:59 14:59 22:59 Intake Total 1088.333 / 2088.333 1308.333 / 1308.333 Output Total 400 / 1200 Balance 688.333 / 427.403 7465.333 / 1308.333 Weight last 48 hrs Weight 215 lb Physical Exam Narrative: General: No acute distress, awake alert and oriented x3 Abdomen: Soft, nontender, nondistended, no guarding rebound or masses, there is an expected seroma over her previous hernia repair Urinary Catheter Management: Avila: Cath Placed During This Visit: no Reason for Continuing Indwelling Catheter: Acute Urinary Retention or Obstruction Data 12/15/22 00:45 12/15/22 00:45 Micro: Microbiology 12/14/22 14:26 Blood Culture - Preliminary Blood NEGATIVE TO DATE 12/15/22 05:40 Stool Lactoferrin - Final Stool Enteric Pathogens (PCR) - Final C.difficile Toxin B Gene (PCR) - Final 12/14/22 15:31 Blood Culture - Preliminary Blood SPECIMEN COLLECTED A&P Assessment and plan (1) Gastroenteritis: Plan She does not have a hernia recurrence or a bowel obstruction NG tube was removed and liquids were given Follow-up results of stool studies Case management for placement into SNF Hospitalist following Likely discharge tomorrow Attestations Medical Necessity Statement*: Patient requires at least 1 more night in the hospital for diet advancement and recovery from gastroenteritis Coding Level of Care Code 93638 Diagnoses Gastroenteritis K52.9
[2022-12-15 16:49] LABS: Glucose Point of Care 184 mg/dL (70-110)
[2022-12-15] MEDS: gabapentin 400 mg Capsule 800 MG PO ×2 (16:58→20:14)
[2022-12-15] MEDS: D5-NS 0.45% + KCL 20 mEq 20 MEQ/1,000 ML BAG 75 MEQ IV (16:58)
[2022-12-15] MEDS: lactobacillus 1 Tablet 1 TAB PO (16:59)
[2022-12-15] MEDS: amlodipine 5 mg Tablet PO (17:01)
[2022-12-15] MEDS: montelukast sodium 10 mg Tablet PO (20:14)
[2022-12-15 21:15] LABS: Glucose Point of Care 162 mg/dL (70-110)
[2022-12-16] VITALS (11 sets, daily range): BP systolic 120–166; BP diastolic 60–87; PULSE 63–73; RESP 16–20; TEMP 36.1–37; O2SAT 94–97
[2022-12-16 05:34] LABS: Basophils % 0.8 %; Eosinophils # 0.5 10^3/uL (0.0-0.8); Hematocrit 39.1 % (36-47); Lymphocytes # 0.8 10^3/uL (0.8-4.8); Lymphocytes % 15.6 %; Mean Corpuscular Volume 85.4 fl (85-98); Mean Platelet Volume 9.1 fL (7.4-10.4); Monocytes # 0.7 10^3/uL (0.2-0.9); Monocytes % 13.8 %; Neutrophils # 3.01 10^3/uL (1.8-7.7); Neutrophils % 59.2 %; Nucleated Red Blood Cells % 0 %; Platelet Count 390 10^3/cmm (157-399); Red Blood Count 4.58 10^6/uL (3.85-5.65); Red Cell Distribution Width 13.1 % (12.1-15.1); White Blood Count 5.08 10^3/uL (3.29-11.43)
[2022-12-16 05:51] LABS: Anion Gap 12.9 (5-19); Blood Urea Nitrogen 6 mg/dL (8-23); Calcium 8.4 mg/dL (8.5-10.5); Carbon Dioxide 27 mmol/L (22-29); Chloride 100 mmol/L (98-107); Glucose 174 mg/dL (65-115); Magnesium 1.7 mg/dL (1.7-2.3); Osmolality Calculated 284 mOsm/kg (285-295); Potassium 3.9 mmol/L (3.5-5.1); Sodium 136 mmol/L (136-145)
[2022-12-16] MEDS: D5-NS 0.45% + KCL 20 mEq 20 MEQ/1,000 ML BAG 75 MEQ IV (06:07)
[2022-12-16] MEDS: levothyroxine 50 mcg Tablet PO (06:07)
[2022-12-16] MEDS: aspirin 81 mg Chew Tablet PO (06:07)
[2022-12-16] MEDS: pantoprazole 40 mg SDV IVP (08:14)
[2022-12-16 08:24] LABS: Glucose Point of Care 203 mg/dL (70-110)
[2022-12-16] MEDS: citalopram 20 mg Tablet PO ×2 (08:44→17:07)
[2022-12-16] MEDS: atenolol 50 mg Tablet 25 MG PO ×2 (08:44→17:07)
[2022-12-16] MEDS: gabapentin 400 mg Capsule 800 MG PO ×3 (08:44→21:17)
[2022-12-16] MEDS: enoxaparin 40 mg/0.4 mL Syringe SUBCUT (08:46)
[2022-12-16] MEDS: insulin lispro 100 unit/1 mL SUBCUT ×3 (09:35→17:28)
[2022-12-16] MEDS: lactobacillus 1 Tablet 1 TAB PO ×2 (09:41→17:07)
[2022-12-16 11:27] LABS: Glucose Point of Care 149 mg/dL (70-110)
--- NOTE | 2022-12-16 11:44 | PM.DCS ---
Discharge Providers Date of Admission: 12/14/22 16:36 Date of Discharge: December 16, 2022 Attending Provider at Admission: Cesar Cruz MD Attending Provider at Discharge: Cesar Cruz MD Primary Care Provider: RANDY Covarrubias Diagnoses at Discharge Discharge Diagnosis (1) Gastroenteritis: Status: Acute Reason for Visit Reason for Visit: abd pain Hospital Course Hospital Course This very pleasant 72-year-old female who presents to the hospital approximately 2 weeks after laparoscopic repair of incarcerated incisional hernia with mesh with abdominal pain nausea and emesis. 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 Patient was diagnosed with gastroenteritis. There was no complication to the hernia repair. She was tolerating diet and having bowel movements prior to discharge. Physical Exam Narrative: General : Patient is well developed , no acute distress, oriented x3 Head : Normal cephalic, a-traumatic. Ears : Pinnae and external canal are normal. Hearing is normal. Eyes : PERRLA, Sclera and injection are normal. No conjunctival discharge. Nose : Mucous membranes are without erythema. Throat : buccal mucosa is normal, gums are without significant recession or hypertrophy. Lungs : Equal chest rise bilaterally, no use of accessory muscles, trachea is midline. Cor : Rate and rhythm are normal. Abdomen : Soft, ND, NT, no g/r/m Extremities : No edema, no cyanosis or clubbing, dorsalis pedis pulses are present bilaterally, non-tender to palpation of calves. Upper extremities are normal bilaterally. Back : non-tender to palpation, no CVA tenderness. Neuro : CN II - XII intact, Upper and lower extremities have equal and full strength Urinary Catheter Management: Avila: Cath Placed During This Visit: no Reason for Continuing Indwelling Catheter: Acute Urinary Retention or Obstruction Discharge Data Studies Completed and Pending Completed Studies During Hospitalization Category Date Time Status CT abdomen pelvis wo con [id number] Routine Cat Scan 12/14/22 17:[address] abdomen pelvis wo con [id number] Stat Cat Scan 12/14/22 14:[address] angio chest PE protcl [id number] Stat Cat Scan 12/15/22 12:49 Completed XR KUB portable [id number] QAM Exams 12/15/22 06:00 Completed XR chest 1V portable [id number] Stat Exams 12/14/22 17:30 [place] [id number] Routine Ultrasound 12/14/22 17:34 Completed Pending at discharge Category Date Time Status BMP [Basic Metabolic Panel] AM LABS Lab 12/17/22 04:00 Ordered Blood Culture Stat Lab 12/14/22 15:31 Results CBC Auto Diff [Complete Blood Count w/Auto] AM LABS Lab 12/17/22 04:00 Ordered Clostridioides Difficile PCR Routine Lab 12/14/22 17:32 Results Enteric Bacterial Panel by PCR Routine Lab 12/14/22 17:32 Results Enteric Parasite Panel by PCR Routine Lab 12/14/22 17:32 Results Lactoferrin Routine Lab 12/14/22 17:32 Results Magnesium AM LABS Lab 12/17/22 04:00 Ordered Radiology Impressions Abdomen/Pelvis CT 12/14/22 17:00 IMPRESSION: 1. Prominent fluid in the small bowel without suggestive of an enteritis. 2. Umbilical region hernia containing fluid and air with possible bowel similar to prior exam. 3. Left lateral abdominal wall hernia containing omentum and fluid measuring up to 4.8 cm in size. 4. Mild anasarca suspected. 5. Avila catheter with a small amount of air in the urinary bladder, likely iatrogenic. 6. Small amount nonspecific fluid in the pelvis. 7. Enteric tube tip in the stomach. 8. Bibasilar atelectasis versus infiltrate. 9. Hepatic steatosis. 10. Cholecystectomy. 11. Perinephric edema bilaterally likely reflecting renal insufficiency, please correlate for pyelonephritis. Chest X-Ray 12/14/22 17:30 IMPRESSION: No acute findings. Venous Duplex 12/14/22 17:34 IMPRESSION: No evidence of deep vein thrombosis. Laboratory Results WBC 5.08 10^3/uL (3.29-11.43) 12/16/22 05:15 RBC 4.58 10^6/uL (3.85-5.65) 12/16/22 05:15 Hgb 13.30 g/dL (11.27-16.99) 12/16/22 05:15 Hct 39.1 % (36-47) 12/16/22 05:15 MCV 85.4 fl (85-98) 12/16/22 05:15 MCH 29.0 pg (27-33) 12/16/22 05:15 MCHC 34.0 g/dL (30-55) 12/16/22 05:15 RDW 13.1 % (12.1-15.1) 12/16/22 05:15 Plt Count 390 10^3/cmm (157-399) 12/16/22 05:15 MPV 9.1 fL (7.4-10.4) 12/16/22 05:15 Neut % (Auto) 59.2 % 12/16/22 05:15 Lymph % (Auto) 15.6 % 12/16/22 05:15 Darke % (Auto) 13.8 % 12/16/22 05:15 Eos % (Auto) 10.0 % 12/16/22 05:15 Baso % (Auto) 0.8 % 12/16/22 05:15 Neut # (Auto) 3.01 10^3/uL (1.8-7.7) 12/16/22 05:15 Lymph # (Auto) 0.8 10^3/uL (0.8-4.8) 12/16/22 05:15 Darke # (Auto) 0.7 10^3/uL (0.2-0.9) 12/16/22 05:15 Eos # (Auto) 0.5 10^3/uL (0.0-0.8) 12/16/22 05:15 Baso # (Auto) 0.0 10^3/uL (0.0-0.1) 12/16/22 05:15 Nucleated RBC % (auto) 0 % 12/16/22 05:15 Nucleated RBCs # 0.0 /100WBC 12/16/22 05:15 PT 14.30 SECONDS (12.1-14.9) 12/14/22 18:35 INR 1.07 (0.8-1.2) 12/14/22 18:35 D-Dimer 2.82 ug/mLFEU (0-0.59) H 12/15/22 12:24 Specimen Type Arterial 12/15/22 12:01 Sample Site Radial, left 12/15/22 12:01 ABG pH 7.44 (7.35-7.45) 12/15/22 12:01 ABG pCO2 40.6 mmHg (35-45) 12/15/22 12:01 ABG pO2 71.9 mmHg (80.0-100.0) L 12/15/22 12:01 ABG HCO3 27.3 mmol/L (22-26) H 12/15/22 12:01 ABG Base Excess 2.9 mmol/L (-2.0-2.0) H 12/15/22 12:01 Piter Test Pos 12/15/22 12:01 Hematocrit 38.3 % (37-47) 12/15/22 12:01 O2 Delivery Device Room air 12/15/22 12:01 FiO2 21.0 % 12/15/22 12:01 Metal Work Duct Installer ID Reese 12/15/22 12:01 Sodium 136 mmol/L (136-145) 12/16/22 05:15 Potassium 3.9 mmol/L (3.5-5.1) 12/16/22 05:15 Chloride 100 mmol/L (98-107) 12/16/22 05:15 Carbon Dioxide 27 mmol/L (22-29) 12/16/22 05:15 Anion Gap 12.9 (5-19) 12/16/22 05:15 BUN 6 mg/dL (8-23) L 12/16/22 05:15 Creatinine 0.4 mg/dL (0.5-0.9) L 12/16/22 05:15 GFR Calculation Not Reportable 12/16/22 05:15 Glucose 174 mg/dL (65-115) H 12/16/22 05:15 POC Glucose 149 mg/dL (70-110) H 12/16/22 11:17 Calculated Osmolality 284 mOsm/kg (285-295) L 12/16/22 05:15 Lactic Acid 1.6 mmol/L (0.5-2.2) 12/14/22 14:26 Calcium 8.4 mg/dL (8.5-10.5) L 12/16/22 05:15 Magnesium 1.7 mg/dL (1.7-2.3) 12/16/22 05:15 Iron 27 ug/dL (37-145) L 12/14/22 18:35 Ferritin 571 ng/mL (15-150) H 12/14/22 18:35 Total Bilirubin 0.5 mg/dL (0.15-1.2) 12/14/22 14:26 AST 25 U/L (0-32) 12/14/22 14:26 ALT 18 U/L (0-33) 12/14/22 14:26 Alkaline Phosphatase 71 U/L (35-105) 12/14/22 14:26 Troponin T Baseline 11 ng/L (0-10) H 12/14/22 18:35 Troponin T 120 Minute 8.68 ng/L (0-10) 12/14/22 21:41 Delta Troponin T -2.32 ABS# (0-10) L 12/14/22 21:41 Troponin T Hi Sens 6Hr 9.54 ng/L (0-10) 12/15/22 00:45 Troponin T Hi Sens 6Hr Delta -1.46 ng/L (0-12) L 12/15/22 00:45 C-Reactive Protein 67.8 mg/L (0.0-4.9) H 12/14/22 18:35 NT-Pro-B Natriuret Pep 205 pg/mL (0-125) H 12/14/22 18:35 Total Protein 7.1 g/dL (6.6-8.7) 12/14/22 14:26 Albumin 3.4 g/dL (3.5-5.2) L 12/14/22 14:26 Globulin 3.7 g/dL (1.3-4.6) 12/14/22 14:26 Lipase 72 U/L (13-60) H 12/14/22 14:26 Procalcitonin 0.14 ng/mL (0-0.5) 12/14/22 18:35 TSH 2.09 uIU/mL (0.27-4.20) 12/14/22 18:35 Urine Color Yellow (Yellow) 12/14/22 18:25 Urine Appearance Clear (CLEAR) 12/14/22 18:25 Urine pH 6 (5-7) 12/14/22 18:25 Ur Specific [place] 1.020 (1.005-1.030) 12/14/22 18:25 Urine Protein Neg (Negative) 12/14/22 18:25 Urine Glucose (UA) 1+ (Normal) H 12/14/22 18:25 Urine Ketones Negative (Negative) 12/14/22 18:25 Urine Blood Neg (Negative) 12/14/22 18:25 Urine Nitrate Negative (Negative) 12/14/22 18:25 Urine Bilirubin Neg (Negative) 12/14/22 18:25 Urine Urobilinogen Norm mg/dL (Negative) 12/14/22 18:25 Ur Leukocyte Esterase Negative (Negative) 12/14/22 18:25 Procedures Performed None Vitals Last Vital Signs Temp 98.2 F 12/16/22 11:40 Pulse 68 12/16/22 11:40 Resp 20 H 12/16/22 11:40 BP 166/87 12/16/22 11:40 Pulse Ox 96 12/16/22 11:40 O2 Del Method Nasal Cannula 12/16/22 11:40 O2 Flow Rate 2 12/15/22 08:25 Discharge Plan Discharge Patient Disposition: Xfer SNF Condition: Stable Prescriptions: Continued Centrum Silver 400-250 mcg tablet,chewable 1 tab PO QAM aspirin 81 mg tablet,chewable 81 mg PO QAM ascorbic acid (vitamin C) 500 mg tablet 500 mg PO QAM citalopram [Celexa] 20 mg tablet 20 mg PO BID Qty: 60 2RF gabapentin 800 mg tablet 800 mg PO TID Qty: 90 2RF hydroxyzine pamoate 25 mg capsule 25 mg PO TID PRN (Reason: anxiety) Qty: 90 2RF (DME) blood-glucose meter [OneTouch Ultra2 Meter] Kit See Rx Instructions .Route Qty: 1 0RF Rx Instructions: As directed (DME) OneTouch Ultra Test Strip See Rx Instructions .Route Qty: 100 5RF Rx Instructions: one daily loratadine 10 mg tablet 10 mg PO DAILY zinc acetate 50 mg (zinc) Capsule 50 mg PO DAILY levalbuterol HCl 0.63 mg/3 mL solution for nebulization 0.63 mg INHALATION TID PRN (Reason: unknown) potassium chloride 10 mEq capsule, extended release 10 meq PO QAM clobetasol 0.05 % cream 1 applic topical BID PRN (Reason: unknown) amlodipine 5 mg tablet 5 mg PO QPM leflunomide 20 mg tablet 20 mg PO QAM Hold Instructions: Resume on 12/18/22. levothyroxine 50 mcg tablet 50 mcg PO QAM budesonide [Pulmicort] 0.5 mg/2 mL suspension for nebulization 0.5 mg inhalation BID PRN (Reason: unknown) montelukast [Singulair] 10 mg tablet 10 mg PO BEDTIME ergocalciferol (vitamin D2) 1,250 mcg (50,000 unit) capsule 1,250 mcg PO Q7D Rx Instructions: on loratadine [Claritin] 10 mg tablet 10 mg PO QAM fenofibrate nanocrystallized [Tricor] 145 mg tablet 145 mg PO BEDTIME budesonide-formoterol [Symbicort] 80-4.5 mcg/actuation HFA aerosol inhaler 2 puff inhalation Q12H PRN (Reason: unknown) Ozempic 1 mg/dose (4 mg/3 mL) pen injector 1 mg SUBCUT Q7D Rx Instructions: on wed benzonatate 100 mg Capsule 100 mg PO TID Qty: 10 0RF atenolol 50 mg tablet 25 mg PO BID Qty: 60 2RF hydrocodone-acetaminophen 7.5-325 mg Tablet 1 tab PO Q6H PRN (Reason: Moderate Pain) Qty: 10 0RF Discharge Orders: Discharge Order (Routine); Ordered 12/16/22 Ordered By: Gerald Gatica Referrals: Karina Funez, [facility] [Primary Care Provider] - 4-7 days Discharge Diet: Advance as tolerated Discharge Activity: Limit activity as instructed Activity Restrictions/Additional Instructions: No lifting pushing or pulling over 15 pounds for 4 more weeks Discharge Attestations Time Spent in Discharge Care*: less than 30 min Status at Discharge: Cognitive status at discharge: cognitively intact, Behavioral status at discharge: cooperative, Quality Metrics Clinical Quality Measures [ No reported AMI, CVA or VTE this stay] Coding Level of Care Code Acute Code for Chg Fwd Diagnoses Gastroenteritis K52.9
--- NOTE | 2022-12-16 14:35 | P.PN_ITS ---
Subjective Subjective: Patient was seen this morning, she denies any fevers, no chills, no cough, she had 3 bowel movements yesterday, does have some bloating, no abdominal pain, ambulating with physical therapy, agreeable to go to group home Vitals/I&O/Wt Last Vital Signs Temp 98.2 F 12/16/22 11:40 Pulse 68 12/16/22 11:40 Resp 20 H 12/16/22 11:40 BP 166/87 12/16/22 11:40 Pulse Ox 96 12/16/22 11:40 O2 Del Method Nasal Cannula 12/16/22 11:40 O2 Flow Rate 2 12/15/22 08:25 12/15/22 12/16/22 12/16/22 22:59 06:59 14:59 Intake Total 411.667 / 5578.967 7545.25 / 3186.250 360 / 360 Balance 411.667 / 1048.250 4480.25 / 3186.250 360 / 360 Physical Exam Const: COMMON NORMALS: no acute distress and patient oriented x3 Resp: COMMON NORMALS: normal respiratory effort, No retractions, No use of accessory muscles and clear to auscultation bilaterally AUSCULTATION: clear to auscultation bilaterally Cardio: COMMON NORMALS: regular rate, regular rhythm, S1 normal heart sound present and S2 normal heart sound present RATE: regular rate RHYTHM: regular rhythm HEART SOUNDS: S1 normal heart sound present and S2 normal heart sound present GI: COMMON NORMALS: Normal to inspection, nondistended, normoactive bowel sounds present, Soft to palpation and non-tender PALPATION: Yes Soft to palpation Extremity: COMMON NORMALS: no pedal edema Neuro: COMMON NORMALS: patient oriented x3 Psych: COMMON NORMALS: mental status grossly normal Urinary Catheter Management: Avila: Cath Placed During This Visit: no Reason for Continuing Indwelling Catheter: Acute Urinary Retention or Obstruction Data 12/16/22 05:15 12/16/22 05:15 Micro: Microbiology 12/15/22 05:40 Stool Lactoferrin - Final Stool Enteric Pathogens (PCR) - Final Parasite Antigen Panel - Final C.difficile Toxin B Gene (PCR) - Final 12/14/22 15:31 Blood Culture - Preliminary Blood NEGATIVE TO DATE 12/14/22 14:26 Blood Culture - Preliminary Blood NEGATIVE TO DATE A&P Assessment and plan (1) Small bowel obstruction: (2) Hypertension: Qualifiers: Hypertension type: essential hypertension Qualified Code(s): I10 - Essential (primary) hypertension (3) Adult hypothyroidism: (4) Anxiety and depression: (5) Diabetes mellitus with hyperglycemia, without long-term current use of insulin: Qualifiers: Diabetes mellitus type: type 2 Qualified Code(s): E11.65 - Type 2 diabetes mellitus with hyperglycemia (6) Hypertriglyceridemia: (7) BMI 34.0-34.9,adult: (8) Type 2 diabetes mellitus: Plan Small bowel obstruction 1.? High-grade small bowel obstruction secondary to an incarcerated ventral abdominal wall hernia. Recommend surgical consultation. Suspect recurrent hernia at the surgical site. 2.? Small amount of free fluid in the pelvis. 3.? Hepatic steatosis and prior cholecystectomy. 4.? 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 Differential includes carcinoid and desmoid tumors. There is a closely associated small bowel loop with wall thickening. On the prior CT IV contrast was given and this loop is hyperemic. Recommend further evaluation for carcinoid or malignancy after patient's acute small bowel obstruction and incarcerated hernia have resolved. bowel obstruction IMPRESSION: 1. ? Prominent fluid in the small bowel without suggestive of an enteritis. 2. ? Umbilical region hernia containing fluid and air with possible bowel similar to prior exam. 3. ? Left lateral abdominal wall hernia containing omentum and fluid measuring up to 4.8 cm in size. 4. ? Mild anasarca suspected. 5. ? Avila catheter with a small amount of air in the urinary bladder, likely iatrogenic. 6. ? Small amount nonspecific fluid in the pelvis. 7. ? Enteric tube tip in the stomach. 8. ? Bibasilar atelectasis versus infiltrate. 9. ? Hepatic steatosis. 10. ? Cholecystectomy. 11. ? Perinephric edema bilaterally likely reflecting renal insufficiency, please correlate for pyelonephritis. Plan -General surgery primary -Diet is being advanced by general surgery -Zofran, Reglan, promethazine for nausea -Morphine for pain control -IV fluids -SCDs for DVT prophylaxis, Lovenox -Full code Complaints of diarrhea -Stool studies negative, so far c diff negative -Has been on Levaquin Type 2 diabetes mellitus Low-dose sliding scale Immobility after surgery, no calf pain, venous us negative for dvt Hypoxia on 2L, chest x-ray no acyte findings, Pro-Dorian 0.14, CRP 67.8, see the angiogram negative for PE Psoriasis hold leflunomide She also has on her right foot, second digit, superficial diabetic ulcer, healed over, with skin thickening, needs to be evaluated with podiatry as outpatient, Onychomycosis bilateral extremities Generalized weakness, deconditioning, PT OT, speech therapy eval, dietary eval Attestations Medical Necessity Statement*: Patient requires hospitalization for bowel obstruction, deconditioning, Diagnoses Small bowel obstruction K56.609 Hypertension I10 Hypertension type: essential hypertension Adult hypothyroidism E03.9 Anxiety and depression F41.9; F32.9 Diabetes mellitus with hyperglycemia, without long-term current use of insulin E11.65 Diabetes mellitus type: type 2 Hypertriglyceridemia E78.1 BMI 34.0-34.9,adult Z68.34 Type 2 diabetes mellitus E11.9
[2022-12-16] MEDS: amlodipine 5 mg Tablet PO (17:07)
[2022-12-16 17:22] LABS: Glucose Point of Care 195 mg/dL (70-110)
[2022-12-16 20:23] LABS: Glucose Point of Care 157 mg/dL (70-110)
[2022-12-16] MEDS: montelukast sodium 10 mg Tablet PO (21:17)
[2022-12-17] VITALS (8 sets, daily range): BP systolic 116–169; BP diastolic 68–86; PULSE 55–68; RESP 16–18; TEMP 36.5–37; O2SAT 95–97
[2022-12-17 05:40] LABS: Basophils % 0.5 %; Eosinophils # 0.4 10^3/uL (0.0-0.8); Eosinophils % 6.1 %; Hematocrit 39.3 % (36-47); Lymphocytes # 1.2 10^3/uL (0.8-4.8); Lymphocytes % 18.7 %; Mean Corpuscular HGB Conc 33.1 g/dL (30-55); Mean Corpuscular Hemoglobin 28.7 pg (27-33); Mean Corpuscular Volume 86.8 fl (85-98); Mean Platelet Volume 9.1 fL (7.4-10.4); Monocytes # 0.7 10^3/uL (0.2-0.9); Monocytes % 11.3 %; Neutrophils % 62.9 %; Nucleated Red Blood Cells % 0 %; Platelet Count 350 10^3/cmm (157-399); Red Blood Count 4.53 10^6/uL (3.85-5.65); Red Cell Distribution Width 12.9 % (12.1-15.1)
[2022-12-17] MEDS: levothyroxine 50 mcg Tablet PO (06:00)
[2022-12-17] MEDS: aspirin 81 mg Chew Tablet PO (06:00)
[2022-12-17 06:06] LABS: Anion Gap 13.6 (5-19); Blood Urea Nitrogen 7 mg/dL (8-23); Calcium 8.5 mg/dL (8.5-10.5); Carbon Dioxide 25 mmol/L (22-29); Chloride 101 mmol/L (98-107); Glucose 157 mg/dL (65-115); Magnesium 1.6 mg/dL (1.7-2.3); Osmolality Calculated 283 mOsm/kg (285-295); Potassium 3.6 mmol/L (3.5-5.1); Sodium 136 mmol/L (136-145)
[2022-12-17 06:34] LABS: Glucose Point of Care 150 mg/dL (70-110)
[2022-12-17] MEDS: insulin lispro 100 unit/1 mL SUBCUT ×2 (07:48→11:32)
--- NOTE | 2022-12-17 08:01 | PC.OT ---
LATE ENTRY FOR 12/16; OT TREATMENT ATTEMPTED AT 1600-PATIENT SLEEPING SOUNDLY-SNORING AND UNABLE TO AWAKEN. OT TREATMENT TO BE ATTEMPTED AT A LATER TIME.
[2022-12-17] MEDS: lactobacillus 1 Tablet 1 TAB PO (08:42)
[2022-12-17] MEDS: pantoprazole 40 mg SDV IVP (08:42)
[2022-12-17] MEDS: gabapentin 400 mg Capsule 800 MG PO (08:44)
[2022-12-17] MEDS: atenolol 50 mg Tablet 25 MG PO (08:44)
[2022-12-17] MEDS: citalopram 20 mg Tablet PO (08:44)
--- NOTE | 2022-12-17 09:44 | PC.SOCIAL ---
Pg 2 IMM Explained to pt & family, Pg 2 IMM. No questions voiced. Provided pt a copy. Initialed, dated, & timed a copy & placed in chart.
--- NOTE | 2022-12-17 10:12 | PM.PN ---
Subjective Subjective: patient was seen this morning, is doing well, no fever, no cough had a bowel movement, no bloody or black stools Vitals/I&O/Wt Last Vital Signs Temp 97.7 F 12/17/22 07:00 Pulse 68 12/17/22 08:10 Resp 18 12/17/22 08:10 BP 169/76 12/17/22 07:00 Pulse Ox 97 12/17/22 08:10 O2 Del Method Room Air 12/17/22 08:10 O2 Flow Rate 2 12/15/22 08:25 12/16/22 12/17/22 12/17/22 22:59 06:59 14:59 Intake Total 480 / 1503 120 / 120 Balance 480 / 1503 120 / 120 Physical Exam Const: COMMON NORMALS: no acute distress and patient oriented x3 Resp: COMMON NORMALS: normal respiratory effort, No retractions, No use of accessory muscles and clear to auscultation bilaterally AUSCULTATION: clear to auscultation bilaterally Cardio: COMMON NORMALS: regular rate, regular rhythm, S1 normal heart sound present and S2 normal heart sound present RATE: regular rate RHYTHM: regular rhythm HEART SOUNDS: S1 normal heart sound present and S2 normal heart sound present GI: COMMON NORMALS: Normal to inspection, nondistended, normoactive bowel sounds present and non-tender Extremity: COMMON NORMALS: no pedal edema Neuro: COMMON NORMALS: patient oriented x3 Psych: COMMON NORMALS: mental status grossly normal Urinary Catheter Management: Avila: Cath Placed During This Visit: no Reason for Continuing Indwelling Catheter: Acute Urinary Retention or Obstruction Data 12/17/22 05:22 12/17/22 05:22 Micro: Microbiology 12/15/22 05:40 Stool Lactoferrin - Final Stool Enteric Pathogens (PCR) - Final Parasite Antigen Panel - Final C.difficile Toxin B Gene (PCR) - Final A&P Assessment and plan (1) Small bowel obstruction: (2) Hypertension: Qualifiers: Hypertension type: essential hypertension Qualified Code(s): I10 - Essential (primary) hypertension (3) Adult hypothyroidism: (4) Anxiety and depression: (5) Diabetes mellitus with hyperglycemia, without long-term current use of insulin: Qualifiers: Diabetes mellitus type: type 2 Qualified Code(s): E11.65 - Type 2 diabetes mellitus with hyperglycemia (6) Hypertriglyceridemia: (7) BMI 34.0-34.9,adult: (8) Type 2 diabetes mellitus: Plan Small bowel obstruction 1.? High-grade small bowel obstruction secondary to an incarcerated ventral abdominal wall hernia. Recommend surgical consultation. Suspect recurrent hernia at the surgical site. 2.? Small amount of free fluid in the pelvis. 3.? Hepatic steatosis and prior cholecystectomy. 4.? 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 Differential includes carcinoid and desmoid tumors. There is a closely associated small bowel loop with wall thickening. On the prior CT IV contrast was given and this loop is hyperemic. Recommend further evaluation for carcinoid or malignancy after patient's acute small bowel obstruction and incarcerated hernia have resolved. bowel obstruction IMPRESSION: 1. ? Prominent fluid in the small bowel without suggestive of an enteritis. 2. ? Umbilical region hernia containing fluid and air with possible bowel similar to prior exam. 3. ? Left lateral abdominal wall hernia containing omentum and fluid measuring up to 4.8 cm in size. 4. ? Mild anasarca suspected. 5. ? Avila catheter with a small amount of air in the urinary bladder, likely iatrogenic. 6. ? Small amount nonspecific fluid in the pelvis. 7. ? Enteric tube tip in the stomach. 8. ? Bibasilar atelectasis versus infiltrate. 9. ? Hepatic steatosis. 10. ? Cholecystectomy. 11. ? Perinephric edema bilaterally likely reflecting renal insufficiency, please correlate for pyelonephritis. Plan -General surgery primary -Diet is being advanced by general surgery -Zofran, Reglan, promethazine for nausea -Morphine for pain control -IV fluids -SCDs for DVT prophylaxis, Lovenox -Full code Complaints of diarrhea -Stool studies negative, so far c diff negative -Has been on Levaquin Type 2 diabetes mellitus Low-dose sliding scale Immobility after surgery, no calf pain, venous us negative for dvt Hypoxia resolved, chest x-ray no acyte findings, Pro-Dorian 0.14, CRP 67.8, see the angiogram negative for PE Psoriasis hold leflunomide She also has on her right foot, second digit, superficial diabetic ulcer, healed over, with skin thickening, needs to be evaluated with podiatry as outpatient, Onychomycosis bilateral extremities Generalized weakness, deconditioning, PT OT, speech therapy eval, dietary eval Attestations Medical Necessity Statement*: patient will be discharged to long term today Coding Level of Care Code Acute Code for Chg Fwd Diagnoses Small bowel obstruction K56.609 Hypertension I10 Hypertension type: essential hypertension Adult hypothyroidism E03.9 Anxiety and depression F41.9; F32.9 Diabetes mellitus with hyperglycemia, without long-term current use of insulin E11.65 Diabetes mellitus type: type 2 Hypertriglyceridemia E78.1 BMI 34.0-34.9,adult Z68.34 Type 2 diabetes mellitus E11.9
[2022-12-17 10:23] LABS: SARS Covid-2 Antigen Negative (Negative)
[2022-12-17] MEDS: enoxaparin 40 mg/0.4 mL Syringe SUBCUT (10:43)
[2022-12-17 11:14] LABS: Glucose Point of Care 163 mg/dL (70-110)
== END 2022-12-17 12:55 | disposition skilled nursing facility (03) | DRG 392 ==
LOC: ER 14:25 → MEDSURG 16:45
PROVIDERS: Family Medicine; Physician Assistant; Admitting Provider Surgery; Emergency Provider Family Medicine; PCP Nurse Practitioner; Visit Provider Surgery
DX: K52.9 Noninfective gastroenteritis and colitis, unspecified (principal); I10 Essential (primary) hypertension; E03.9 Hypothyroidism, unspecified; F41.9 Anxiety disorder, unspecified; F32.A Depression, unspecified; E11.65 Type 2 diabetes mellitus with hyperglycemia; E11.621 Type 2 diabetes mellitus with foot ulcer; L97.519 Non-pressure chronic ulcer of other part of right foot with unspecified severity; E78.1 Pure hyperglyceridemia; L40.9 Psoriasis, unspecified; B35.1 Tinea unguium; R33.9 Retention of urine, unspecified; Z79.82 Long term (current) use of aspirin; Z79.891 Long term (current) use of opiate analgesic; I25.10 Atherosclerotic heart disease of native coronary artery without angina pectoris; G89.29 Other chronic pain; M54.16 Radiculopathy, lumbar region; Z87.891 Personal history of nicotine dependence; E78.5 Hyperlipidemia, unspecified; Z86.16 Personal history of COVID-19
CPT/HCPCS: 36415; 36416; 36600; 51702; 71045; 71275; 74018; 74176; 80048; 80053; 81003; 82728; 82803; 82962; 83540; 83605; 83630; 83690; 83735; 83880; 84145; 84443; 84484; 85025; 85378; 85610; 86140; 87040; 87426; 87493; 87506; 92523; 92610; 93005; 93970; 96372; 96374; 96375; 97116; 97161; 97167; 99285; C9113; J1650; J1815; J2270; J2405; J3490; J7030; Q9967

== ENCOUNTER 2022-12-18 16:49 | Observation (INO) | payer MEDICARE, MEDICAID, SELFPAY ==
[2022-12-18] VITALS (8 sets, daily range): BP systolic 152–166; BP diastolic 86–102; PULSE 72–79; RESP 16–20; TEMP 36.7; O2SAT 2–96
--- NOTE | 2022-12-18 16:49 | CTR_ITS ---
PROCEDURE INFORMATION: Exam: CT Abdomen And Pelvis With Contrast Exam date and time: 12/18/2022 5:51 PM Age: 72 years old Clinical indication: Abdominal pain; Generalized; Prior surgery; Surgery date: <1 month; Surgery type: Recent laparoscopic repairofincarcerated hernia and lysis of adhesions on 12/07/2022. Previously yrs ago: Tubal, appy, gb, hysterectomy; Additional info: Abd pain TECHNIQUE: Imaging protocol: Computed tomography of the abdomen and pelvis with contrast. Radiation optimization: All CT scans at this facility use at least one of these dose optimization techniques: automated exposure control; mA and/or kV adjustment per patient size (includes targeted exams where dose is matched to clinical indication); or iterative reconstruction. Contrast material: OMNIPAQUE 350; Contrast volume: 100 ml; Contrast route: INTRAVENOUS (IV); REPORTING DATA: Count of CT and Cardiac NM exams in prior 12 months: This patient has received 4 known CTs and 0 known cardiac nuclear medicine studies in the 12 months prior to the current study. COMPARISON: CT abdomen pelvis wo con [id number] 12/14/2022 8:59 PM RADIATION DOSE METRICS: Total DLP (mGy-cm): 992.31 FINDINGS: Lungs: Unremarkable lung bases bilaterally. Liver: There is fatty infiltration liver. Gallbladder and bile ducts: Patient is status post cholecystectomy. Pancreas: Normal. No ductal dilation. Spleen: Normal. No splenomegaly. Adrenal glands: Normal. No mass. Kidneys and ureters: There are subcentimeter hypodensities in both kidneys, statistically these represent cysts. There is a nonobstructing distal 3.9 mm left ureteral stone. There is mild hydroureter in this region. Stomach and bowel: Dilated small bowel loops are again noted. Appendix: No evidence of appendicitis. Intraperitoneal space: There is a small pelvic fluid collection. Vasculature: Unremarkable. No abdominal aortic aneurysm. Lymph nodes: Unremarkable. No enlarged lymph nodes. Urinary bladder: There is urinary bladder wall thickening with associated air within it (there is no indwelling Avila catheter), findings suggestive of urinary tract infection, recommend correlation. Reproductive: Unremarkable as visualized. Bones/joints: Unremarkable. No acute fracture. Soft tissues: The umbilical hernia is again noted to contain fluid and some air in this associated rim enhancement. The collection lateral to this on the left has decreased slightly from 3.7 mm 24.6 mm currently. Interval increase in size the hernia containing fluid air from 73.[address]/CT abdomen pelvis w con* [id number] IMPRESSION: 1. Interval increase in size of the umbilical hernia which contains fluid and air suggesting infectious/ inflammatory process. Recommend clinical correlation. 2. Nonobstructing distal left 3.9 mm ureteral stone, there is mild left hydroureter noted. 3. Dilation the bowel loops pelvis, this is suggestive of an enteritis. 4. Possible UTI. COMMENTS: Consistent with the [employer]'s Incidental Findings Committee white paper (J Am Carrie Radiol 2018): Any incidental renal lesion less than 1 cm or classified as too small to characterize, or any incidental cystic renal lesion characterized as simple-appearing, is likely benign. No follow-up imaging is recommended for these lesions per consensus recommendations based on imaging criteria.
--- NOTE | 2022-12-18 16:50 | XRR_ITS ---
PROCEDURE INFORMATION: Exam: XR Chest Exam date and time: 12/18/2022 5:35 PM Age: 72 years old Clinical indication: Pain; Chest pressure; Additional info: Abd pain/dyspnea TECHNIQUE: Imaging protocol: Radiologic exam of the chest. Views: 1 view. COMPARISON: CR (CHEST, ) 12/14/2022 5:56 PM FINDINGS: Lungs: Unremarkable. No consolidation. Pleural spaces: Unremarkable. No pleural effusion. No pneumothorax. Heart/Mediastinum: Unremarkable. No cardiomegaly. Bones/joints: Unremarkable. XR/XR chest 1V portable [id number] IMPRESSION: No acute findings.
[2022-12-18 17:18] LABS: Basophils % 0.4 %; Eosinophils # 0.2 10^3/uL (0.0-0.8); Eosinophils % 2.1 %; Hematocrit 43.4 % (36-47); Lymphocytes # 0.8 10^3/uL (0.8-4.8); Lymphocytes % 7.8 %; Mean Corpuscular HGB Conc 34.1 g/dL (30-55); Mean Corpuscular Hemoglobin 28.4 pg (27-33); Mean Corpuscular Volume 83.1 fl (85-98); Mean Platelet Volume 9.6 fL (7.4-10.4); Monocytes # 0.8 10^3/uL (0.2-0.9); Monocytes % 8.1 %; Neutrophils # 8.16 10^3/uL (1.8-7.7); Neutrophils % 81.1 %; Nucleated Red Blood Cells % 0 %; Platelet Count 461 10^3/cmm (157-399); Red Blood Count 5.22 10^6/uL (3.85-5.65); Red Cell Distribution Width 12.8 % (12.1-15.1); White Blood Count 10.05 10^3/uL (3.29-11.43)
--- NOTE | 2022-12-18 17:31 | W.ED.ABDPA2 ---
Documented by User: Reza Ford DO 12/19/22 06:03 HPI - Abdominal Pain General: Chief Complaint: Abdominal Pain Stated Complaint: abd pain Time Seen by Provider: 12/18/22 16:49 Source: patient Mode of arrival: ambulatory History of Present Illness: 72-year-old female returns to the emergency room from the [facility]. She was admitted on 821 with bowel obstruction with incarcerated abdominal wall hernias. Ventral hernias were repaired in surgery and she was ultimately discharged home on 825 she returned on 828 there is a question of recurrence of the hernia and bowel obstruction she was admitted repeat CTs were done Dr. Gatica seen evaluate the patient he felt it was a seroma and she was discharged home yesterday. She is continue to have pain and discomfort she had a small bowel movement last night she has been nauseous but no vomiting. No fever sweats chills denies dysuria urgency or frequency MD elicited complaint: abdominal pain Onset (ago): day(s) Pain Consistency: intermittent Location: Diffuse Severity: moderate Quality: cramping Exacerbating factors: nothing Relieving factors: nothing Associated Symptoms: Reports bloating, GI cramping, nausea and vomiting; Denies anorexia, belching, change in bowel habits, chills, coffee ground emesis, constipation, diarrhea, dyspepsia, dysuria, fever(s), heartburn, hematuria, hematemesis, loose stools, poor appetite and syncope Review of Systems Const: Denies: fever(s) or chills Card: Denies: syncope Resp: Denies: dyspnea, productive cough or non-productive cough GI: Reports: abdominal pain, nausea, vomiting, bloating and GI cramping; Denies: hematemesis, coffee ground emesis, heartburn, diarrhea, constipation, belching or change in bowel habits : Denies: dysuria, urinary frequency, urinary urgency or hematuria Skin/Breast: Denies: rash or pruritus PFSH ED PFSH: Medical History Allergic rhinitis due to pollen Anxiety and depression Atherosclerotic heart disease of [place] coronary artery without angina pectoris Coronary calcifications noted on CT imaging Chronic left lumbar radiculopathy Chronic low back pain COPD (chronic obstructive pulmonary disease) with emphysema COVID-19 (2020) Diabetes mellitus with hyperglycemia, without long-term current use of insulin Family history of ankylosing spondylitis HLA B27 (HLA B27 positive) Hyperlipidemia Hypertension Hypertriglyceridemia Hypothyroidism Polyarthralgia Primary osteoarthritis, unspecified ankle and foot Psoriasis Vitamin D deficiency, unspecified Surgical History History of appendectomy History of hysterectomy for cancer History of tubal ligation Family History Father Cancer Diabetes CAD (coronary artery disease) Brother Diabetes Daughter Diabetes CAD (coronary artery disease) Rheumatoid arthritis Other Hypertension Denies family history of Lupus Psoriasis Social History Smoking and tobacco status: former smoker Quit status (tobacco): has quit using tobacco Second hand smoke exposure: No Alcohol intake: never Substance/Drug Use: never Adopted: No Caregiver/support person: No Lives independently: Yes Household members: spouse Housing: House Marital status: Number of children: 3 service: No Current occupational status: unemployed Do you think of yourself as: Straight/Heterosexual Current gender identity: Female Physical Exam Const: GENERAL APPEARANCE: cooperative ORIENTATION/CONSCIOUSNESS: Yes awake, Yes oriented to person, Yes oriented to place and Yes oriented to time HENMT: COMMON NORMALS: normocephalic, atraumatic and hearing grossly normal bilaterally HEAD & SCALP: normocephalic and atraumatic Resp: COMMON NORMALS: normal respiratory effort, No retractions, No use of accessory muscles and clear to auscultation bilaterally AUSCULTATION: clear to auscultation bilaterally Cardio: COMMON NORMALS: regular rate, regular rhythm and No murmurs present (Cardio) RATE: regular rate RHYTHM: regular rhythm GI: COMMON NORMALS: No hepatosplenomegaly present INSPECTION: Yes abdominal distension AUSCULTATION: Yes Hypoactive bowel sounds present PALPATION: Yes Tenderness to palpation present (GI) (Periumbilical), No Guarding due to palpation present (GI) and Yes No hepatosplenomegaly present : COMMON NORMALS: Yes no CVA tenderness BLADDER/KIDNEY EXAM: Yes no CVA tenderness Back/Pelvis: COMMON NORMALS: no CVA tenderness Extremity: COMMON NORMALS: normal to inspection, capillary refill normal, no clubbing, cyanosis or edema, no calf tenderness and no pedal edema Neuro: SENSORIUM/ORIENTATION: Yes oriented to person, Yes oriented to place and Yes oriented to time Skin: COMMON NORMALS: no rashes or lesions noted GENERAL SKIN EXAM: no rashes or lesions noted Course Vital Signs: Vital signs: Vital Signs Temperature 98.1 F 12/19/22 05:00 Pulse Rate 82 12/19/22 05:00 Respiratory Rate 15 12/19/22 05:00 Blood Pressure 164/87 12/19/22 05:00 Pulse Oximetry 94 12/19/22 05:00 Oxygen Delivery Me thod Room Air 12/19/22 05:00 Oxygen Flow Rate 2 12/18/22 21:00 MDM - Abdominal Pain Medical Decision Making CT labs pending care. signed out to Dr. Landaverde at change of shift. See final notes for diagnosis and disposition. Patient presents here with abdominal pain CT does show increasing size of her umbilical hernia which contains some fluid could be a seroma did speak to her surgeon Dr. Gatica will admit on IV antibiotics. Lab Data 12/18/22 16:35 12/18/22 16:35 Labs/Radiology: Radiology Impressions Abdomen/Pelvis CT 12/18/22 16:49 IMPRESSION: 1. Interval increase in size of the umbilical hernia which contains fluid and air suggesting infectious/ inflammatory process. Recommend clinical correlation. 2. Nonobstructing distal left 3.9 mm ureteral stone, there is mild left hydroureter noted. 3. Dilation the bowel loops pelvis, this is suggestive of an enteritis. 4. Possible UTI. COMMENTS: Consistent with the [employer]'s Incidental Findings Committee white paper (J Am Carrie Radiol 2018): Any incidental renal lesion less than 1 cm or classified as too small to characterize, or any incidental cystic renal lesion characterized as simple-appearing, is likely benign. No follow-up imaging is recommended for these lesions per consensus recommendations based on imaging criteria. Chest X-Ray 12/18/22 16:50 IMPRESSION: No acute findings. Laboratory Results WBC 10.05 10^3/uL (3.29-11.43) 12/18/22 16:35 RBC 5.22 10^6/uL (3.85-5.65) 12/18/22 16:35 Hgb 14.80 g/dL (11.27-16.99) 12/18/22 16:35 Hct 43.4 % (36-47) 12/18/22 16:35 MCV 83.1 fl (85-98) L 12/18/22 16:35 MCH 28.4 pg (27-33) 12/18/22 16:35 MCHC 34.1 g/dL (30-55) 12/18/22 16:35 RDW 12.8 % (12.1-15.1) 12/18/22 16:35 Plt Count 461 10^3/cmm (157-399) H 12/18/22 16:35 MPV 9.6 fL (7.4-10.4) 12/18/22 16:35 Neut % (Auto) 81.1 % 12/18/22 16:35 Lymph % (Auto) 7.8 % 12/18/22 16:35 [place] % (Auto) 8.1 % 12/18/22 16:35 Eos % (Auto) 2.1 % 12/18/22 16:35 Baso % (Auto) 0.4 % 12/18/22 16:35 Neut # (Auto) 8.16 10^3/uL (1.8-7.7) H 12/18/22 16:35 Lymph # (Auto) 0.8 10^3/uL (0.8-4.8) 12/18/22 16:35 [place] # (Auto) 0.8 10^3/uL (0.2-0.9) 12/18/22 16:35 Eos # (Auto) 0.2 10^3/uL (0.0-0.8) 12/18/22 16:35 Baso # (Auto) 0.0 10^3/uL (0.0-0.1) 12/18/22 16:35 Nucleated RBC % (auto) 0 % 12/18/22 16:35 Nucleated RBCs # 0.0 /100WBC 12/18/22 16:35 Sodium 133 mmol/L (136-145) L 12/18/22 16:35 Potassium 3.7 mmol/L (3.5-5.1) 12/18/22 16:35 Chloride 96 mmol/L (98-107) L 12/18/22 16:35 Carbon Dioxide 26 mmol/L (22-29) 12/18/22 16:35 Anion Gap 14.7 (5-19) 12/18/22 16:35 BUN 9 mg/dL (8-23) 12/18/22 16:35 Creatinine 0.4 mg/dL (0.5-0.9) L 12/18/22 16:35 GFR Calculation Not Reportable 12/18/22 16:35 Glucose 178 mg/dL (65-115) H 12/18/22 16:35 Calculated Osmolality 279 mOsm/kg (285-295) L 12/18/22 16:35 Lactic Acid 1.5 mmol/L (0.5-2.2) 12/18/22 17:18 Calcium 9.2 mg/dL (8.5-10.5) 12/18/22 16:35 Magnesium 1.8 mg/dL (1.7-2.3) 12/18/22 16:35 Total Bilirubin 0.6 mg/dL (0.15-1.2) 12/18/22 16:35 AST 24 U/L (0-32) 12/18/22 16:35 ALT 17 U/L (0-33) 12/18/22 16:35 Alkaline Phosphatase 81 U/L (35-105) 12/18/22 16:35 Creatine Kinase 43 U/L (26-192) 12/18/22 16:35 Total Protein 7.1 g/dL (6.6-8.7) 12/18/22 16:35 Albumin 3.8 g/dL (3.5-5.2) 12/18/22 16:35 Globulin 3.3 g/dL (1.3-4.6) 12/18/22 16:35 Lipase 90 U/L (13-60) H 12/18/22 16:35 Urine Color Yellow (Yellow) 12/18/22 17:44 Urine Appearance Cloudy (CLEAR) A 12/18/22 17:44 Urine pH 6 (5-7) 12/18/22 17:44 Ur Specific [place] 1.020 (1.005-1.030) 12/18/22 17:44 Urine Protein Neg (Negative) 12/18/22 17:44 Urine Glucose (UA) Norm (Normal) 12/18/22 17:44 Urine Ketones Negative (Negative) 12/18/22 17:44 Urine Blood Neg (Negative) 12/18/22 17:44 Urine Nitrate Negative (Negative) 12/18/22 17:44 Urine Bilirubin 1+ (Negative) H 12/18/22 17:44 Urine Urobilinogen 4 mg/dL (Negative) H 12/18/22 17:44 Ur Leukocyte Esterase Negative (Negative) 12/18/22 17:44 Urine RBC 0-4 /hpf (0-2) H 12/18/22 17:44 Urine WBC 0-4 /hpf (0-5) H 12/18/22 17:44 Ur Squamous Epith Cells 0-4 /hpf (0-5) H 12/18/22 17:44 Amorphous Sediment Not Reportable 12/18/22 17:44 Urine Bacteria Trace /hpf (NONE) 12/18/22 17:44 Urine Mucus 4+ /hpf 12/18/22 17:44 Discharge Plan Discharge Patient Disposition: Admitted As Inpatient Admit Provider: Gerald Gatica Clinical Impression: Umbilical hernia, incarcerated, Type 2 diabetes mellitus, Hypertension Condition: Stable Coding Level of Care Code ED Certified Hyperbaric Technologist for [facility] Documented by User: Lana Landaverde MD 12/18/22 19:59 HPI - Abdominal Pain General: Chief Complaint: Abdominal Pain Stated Complaint: abd pain Time Seen by Provider: 12/18/22 16:49 PFSH ED PFSH: Medical History Allergic rhinitis due to pollen Anxiety and depression Atherosclerotic heart disease of [place] coronary artery without angina pectoris Coronary calcifications noted on CT imaging Chronic left lumbar radiculopathy Chronic low back pain COPD (chronic obstructive pulmonary disease) with emphysema COVID-19 (2020) Diabetes mellitus with hyperglycemia, without long-term current use of insulin Family history of ankylosing spondylitis HLA B27 (HLA B27 positive) Hyperlipidemia Hypertension Hypertriglyceridemia Hypothyroidism Polyarthralgia Primary osteoarthritis, unspecified ankle and foot Psoriasis Vitamin D deficiency, unspecified Surgical History History of appendectomy History of hysterectomy for cancer History of tubal ligation Family History Father Cancer Diabetes CAD (coronary artery disease) Brother Diabetes Daughter Diabetes CAD (coronary artery disease) Rheumatoid arthritis Other Hypertension Denies family history of Lupus Psoriasis Social History Smoking and tobacco status: former smoker Quit status (tobacco): has quit using tobacco Second hand smoke exposure: No Alcohol intake: never Substance/Drug Use: never Adopted: No Caregiver/support person: No Lives independently: Yes Household members: spouse Housing: House Marital status: Number of children: 3 service: No Current occupational status: unemployed Do you think of yourself as: Straight/Heterosexual Current gender identity: Female Course Vital Signs: Vital signs: Vital Signs Temperature 98.1 F 12/19/22 05:00 Pulse Rate 82 12/19/22 05:00 Respiratory Rate 15 12/19/22 05:00 Blood Pressure 164/87 12/19/22 05:00 Pulse Oximetry 94 12/19/22 05:00 Oxygen Delivery Me thod Room Air 12/19/22 05:00 Oxygen Flow Rate 2 12/18/22 21:00 MDM - Abdominal Pain Medical Decision Making Patient presents here with abdominal pain CT does show increasing size of her umbilical hernia which contains some fluid could be a seroma did speak to her surgeon Dr. Gatica will admit on IV antibiotics. Medical Records I reviewed the patient's medical records. Lab Data I reviewed the patient's lab results. 12/18/22 16:35 12/18/22 16:35 Labs/Radiology: Radiology Impressions Abdomen/Pelvis CT 12/18/22 16:49 IMPRESSION: 1. Interval increase in size of the umbilical hernia which contains fluid and air suggesting infectious/ inflammatory process. Recommend clinical correlation. 2. Nonobstructing distal left 3.9 mm ureteral stone, there is mild left hydroureter noted. 3. Dilation the bowel loops pelvis, this is suggestive of an enteritis. 4. Possible UTI. COMMENTS: Consistent with the [employer]'s Incidental Findings Committee white paper (J Am Carrie Radiol 2018): Any incidental renal lesion less than 1 cm or classified as too small to characterize, or any incidental cystic renal lesion characterized as simple-appearing, is likely benign. No follow-up imaging is recommended for these lesions per consensus recommendations based on imaging criteria. Chest X-Ray 12/18/22 16:50 IMPRESSION: No acute findings. Laboratory Results WBC 10.05 10^3/uL (3.29-11.43) 12/18/22 16:35 RBC 5.22 10^6/uL (3.85-5.65) 12/18/22 16:35 Hgb 14.80 g/dL (11.27-16.99) 12/18/22 16:35 Hct 43.4 % (36-47) 12/18/22 16:35 MCV 83.1 fl (85-98) L 12/18/22 16:35 MCH 28.4 pg (27-33) 12/18/22 16:35 MCHC 34.1 g/dL (30-55) 12/18/22 16:35 RDW 12.8 % (12.1-15.1) 12/18/22 16:35 Plt Count 461 10^3/cmm (157-399) H 12/18/22 16:35 MPV 9.6 fL (7.4-10.4) 12/18/22 16:35 Neut % (Auto) 81.1 % 12/18/22 16:35 Lymph % (Auto) 7.8 % 12/18/22 16:35 [place] % (Auto) 8.1 % 12/18/22 16:35 Eos % (Auto) 2.1 % 12/18/22 16:35 Baso % (Auto) 0.4 % 12/18/22 16:35 Neut # (Auto) 8.16 10^3/uL (1.8-7.7) H 12/18/22 16:35 Lymph # (Auto) 0.8 10^3/uL (0.8-4.8) 12/18/22 16:35 [place] # (Auto) 0.8 10^3/uL (0.2-0.9) 12/18/22 16:35 Eos # (Auto) 0.2 10^3/uL (0.0-0.8) 12/18/22 16:35 Baso # (Auto) 0.0 10^3/uL (0.0-0.1) 12/18/22 16:35 Nucleated RBC % (auto) 0 % 12/18/22 16:35 Nucleated RBCs # 0.0 /100WBC 12/18/22 16:35 Sodium 133 mmol/L (136-145) L 12/18/22 16:35 Potassium 3.7 mmol/L (3.5-5.1) 12/18/22 16:35 Chloride 96 mmol/L (98-107) L 12/18/22 16:35 Carbon Dioxide 26 mmol/L (22-29) 12/18/22 16:35 Anion Gap 14.7 (5-19) 12/18/22 16:35 BUN 9 mg/dL (8-23) 12/18/22 16:35 Creatinine 0.4 mg/dL (0.5-0.9) L 12/18/22 16:35 GFR Calculation Not Reportable 12/18/22 16:35 Glucose 178 mg/dL (65-115) H 12/18/22 16:35 Calculated Osmolality 279 mOsm/kg (285-295) L 12/18/22 16:35 Lactic Acid 1.5 mmol/L (0.5-2.2) 12/18/22 17:18 Calcium 9.2 mg/dL (8.5-10.5) 12/18/22 16:35 Magnesium 1.8 mg/dL (1.7-2.3) 12/18/22 16:35 Total Bilirubin 0.6 mg/dL (0.15-1.2) 12/18/22 16:35 AST 24 U/L (0-32) 12/18/22 16:35 ALT 17 U/L (0-33) 12/18/22 16:35 Alkaline Phosphatase 81 U/L (35-105) 12/18/22 16:35 Creatine Kinase 43 U/L (26-192) 12/18/22 16:35 Total Protein 7.1 g/dL (6.6-8.7) 12/18/22 16:35 Albumin 3.8 g/dL (3.5-5.2) 12/18/22 16:35 Globulin 3.3 g/dL (1.3-4.6) 12/18/22 16:35 Lipase 90 U/L (13-60) H 12/18/22 16:35 Urine Color Yellow (Yellow) 12/18/22 17:44 Urine Appearance Cloudy (CLEAR) A 12/18/22 17:44 Urine pH 6 (5-7) 12/18/22 17:44 Ur Specific [place] 1.020 (1.005-1.030) 12/18/22 17:44 Urine Protein Neg (Negative) 12/18/22 17:44 Urine Glucose (UA) Norm (Normal) 12/18/22 17:44 Urine Ketones Negative (Negative) 12/18/22 17:44 Urine Blood Neg (Negative) 12/18/22 17:44 Urine Nitrate Negative (Negative) 12/18/22 17:44 Urine Bilirubin 1+ (Negative) H 12/18/22 17:44 Urine Urobilinogen 4 mg/dL (Negative) H 12/18/22 17:44 Ur Leukocyte Esterase Negative (Negative) 12/18/22 17:44 Urine RBC 0-4 /hpf (0-2) H 12/18/22 17:44 Urine WBC 0-4 /hpf (0-5) H 12/18/22 17:44 Ur Squamous Epith Cells 0-4 /hpf (0-5) H 12/18/22 17:44 Amorphous Sediment Not Reportable 12/18/22 17:44 Urine Bacteria Trace /hpf (NONE) 12/18/22 17:44 Urine Mucus 4+ /hpf 12/18/22 17:44 Discharge Plan Discharge Patient Disposition: Admitted As Inpatient Admit Provider: Gerald Gatica Clinical Impression: Umbilical hernia, incarcerated, Type 2 diabetes mellitus, Hypertension Condition: Stable Coding Level of Care Code ED Certified Hyperbaric Technologist for [facility] Muniz
[2022-12-18] MEDS: sodium chloride 0.9% 1,000 ML 999 ML IV (17:32)
[2022-12-18 17:36] LABS: Alanine Aminotransferase 17 U/L (0-33); Albumin Level 3.8 g/dL (3.5-5.2); Alkaline Phosphatase 81 U/L (35-105); Anion Gap 14.7 (5-19); Aspartate Amino Transferase 24 U/L (0-32); Blood Urea Nitrogen 9 mg/dL (8-23); Calcium 9.2 mg/dL (8.5-10.5); Carbon Dioxide 26 mmol/L (22-29); Chloride 96 mmol/L (98-107); Creatine Phosphokinase 43 U/L (26-192); Globulin 3.3 g/dL (1.3-4.6); Glucose 178 mg/dL (65-115); Lipase 90 U/L (13-60); Magnesium 1.8 mg/dL (1.7-2.3); Osmolality Calculated 279 mOsm/kg (285-295); Potassium 3.7 mmol/L (3.5-5.1); Sodium 133 mmol/L (136-145); Total Bilirubin 0.6 mg/dL (0.15-1.2); Total Protein 7.1 g/dL (6.6-8.7)
[2022-12-18] MEDS: iohexol 350 mg/mL 500 mL Btl (per mL) IV (17:52)
[2022-12-18 17:55] LABS: Lactic Sepsis W/Reflex 1.5 mmol/L (0.5-2.2)
[2022-12-18 18:13] LABS: Add Urine Microscopic? YES; Bilirubin Urine 1+ (Negative); Blood Urine Neg (Negative); Glucose Urine UA Norm (Normal); Ketones Urine Negative (Negative); Leukocyte Esterase Urine Negative (Negative); Nitrate Urine Negative (Negative); Protein Urine Neg (Negative); Urine Appearance Cloudy (CLEAR); Urine Color Yellow (Yellow); Urobilinogen Urine 4 mg/dL (Negative); pH Urine 6 (5-7)
[2022-12-18 18:14] LABS: Add Urine Culture? No; Bacteria Urine TRACE /hpf; Mucus Urine 4+ /hpf; RBC Urine 0-4 /hpf (0-2); Squamous Epithelial Cell Urine 0-4 /hpf (0-5); WBC Urine 0-4 /hpf (0-5)
[2022-12-18] MEDS: HYDROmorphone 1 mg/mL INJ 1 mL 0.5 MG IVP (19:20)
[2022-12-18] MEDS: ondansetron 2 mg/ML SDV 2 mL 4 MG IVP (19:21)
[2022-12-18] MEDS: ciprofloxacin 400 MG/200 ML PREMIX 200 MG IV (20:04)
[2022-12-18] MEDS: morphine 4 mg/mL SDV 1 mL IVP (21:38)
[2022-12-18] MEDS: metroNIDAZOLE IV 500 MG/100 ML PREMIX 100 MG IV (22:08)
[2022-12-19] VITALS (11 sets, daily range): BP systolic 122–164; BP diastolic 69–89; PULSE 60–82; RESP 14–18; TEMP 36.5–36.8; O2SAT 94–96
[2022-12-19] MEDS: metroNIDAZOLE IV 500 MG/100 ML PREMIX 100 MG IV ×3 (03:43→21:17)
[2022-12-19] MEDS: morphine 4 mg/mL SDV 1 mL IVP (03:50)
[2022-12-19] MEDS: ciprofloxacin 400 MG/200 ML PREMIX 200 MG IV ×2 (08:55→21:18)
--- NOTE | 2022-12-19 10:24 | PM.HP ---
Providers/Chief Complaint Admitting Physician: Gerald Gatica DO Primary Care Provider: RANDY Covarrubias Chief Complaint: abd pain History of Present Illness Linda Kelly is a 72 year old female who presents to the hospital with abdominal pain. She reports that the pain was diffuse and intermittent. Pain did not radiate. Nothing seems to make the pain better or worse. She denies any nausea or vomiting. She is passing flatus and her last bowel movement was yesterday. She recently underwent a laparoscopic repair of an incarcerated incisional hernia with mesh. She has a seroma from this which is expected. This is her second admission since the procedure and she continues to have gastroenteritis. No complication from the hernia repair is identified. Review of Systems General: Reports: 10 or more systems reviewed and unremarkable except in HPI and below Medications/Allergies Home Medications Medication Instructions Recorded Confirmed Last Taken Type multivit with min-folic 1 tab PO QAM 04/25/19 12/19/22 12/14/22 History acid-lutein 400 mcg-250 mcg chewable tablet (Centrum Silver) aspirin 81 mg chewable tablet 81 mg PO QAM 10/16/20 12/19/22 12/14/22 History blood sugar diagnostic (OneTouch #100 ea 11/19/22 12/19/22 Unknown Rx Ultra Test strips) blood-glucose meter (OneTouch #1 ea 11/19/22 12/19/22 Unknown Rx Ultra2 Meter kit) citalopram 20 mg tablet (Celexa) 20 mg PO BID #60 tabs 11/19/22 12/19/22 12/14/22 Rx gabapentin 800 mg tablet 800 mg PO TID #90 tabs 11/19/22 12/19/22 12/14/22 Rx hydroxyzine pamoate 25 mg capsule 25 mg PO TID PRN anxiety #90 caps 11/19/22 12/19/22 12/14/22 Rx amlodipine 5 mg tablet 5 mg PO QPM 12/07/22 12/19/22 12/14/22 History budesonide 0.5 mg/2 mL suspension 0.5 mg inhalation BID PRN unknown 12/07/22 12/19/22 Unknown History for nebulization (Pulmicort) budesonide-formoterol HFA 80 2 puff inhalation Q12H PRN unknown 12/07/22 12/19/22 Unknown History mcg-4.5 mcg/actuation aerosol inhaler (Symbicort) clobetasol 0.05 % topical cream 1 applic topical BID PRN unknown 12/07/22 12/19/22 Unknown History ergocalciferol (vitamin D2) 1,250 1,250 mcg PO Q7D 12/07/22 12/19/22 12/14/22 History mcg (50,000 unit) capsule fenofibrate nanocrystallized 145 145 mg PO BEDTIME 12/07/22 12/19/22 12/13/22 History mg tablet (Tricor) leflunomide 20 mg tablet 20 mg PO QAM 12/07/22 12/19/22 Unknown History levalbuterol HCl 0.63 mg/3 mL 0.63 mg inhalation TID PRN unknown 12/07/22 12/19/22 12/14/22 History solution for nebulization levothyroxine 50 mcg tablet 50 mcg PO QAM 12/07/22 12/19/22 12/14/22 History loratadine 10 mg tablet (Claritin) 10 mg PO QAM 12/07/22 12/19/22 12/14/22 History montelukast 10 mg tablet 10 mg PO BEDTIME 12/07/22 12/19/22 12/13/22 History (Singulair) potassium chloride 10 mEq 10 meq PO QAM 12/07/22 12/19/22 12/14/22 History capsule,extended release semaglutide 1 mg/dose (4 mg/3 mL) 1 mg SUBCUT Q7D 12/07/22 12/19/22 12/11/22 History subcutaneous pen injector (Ozempic) atenolol 50 mg tablet 25 mg PO BID #60 tabs 12/11/22 12/19/22 12/14/22 Rx benzonatate 100 mg capsule 100 mg PO TID #10 caps 12/11/22 12/19/22 12/14/22 Rx hydrocodone 7.5 mg-acetaminophen 1 tab PO Q6H PRN Moderate Pain #10 12/11/22 12/19/22 12/14/22 Rx 325 mg tablet tabs celecoxib 100 mg capsule 100 mg PO DAILY 12/19/22 12/19/22 Unknown History Allergies Allergy/AdvReac Type Severity Reaction Status Date / Time LUIS ENRIQUE Inhibitors Allergy UNKNOWN Verified 12/14/22 13:38 albuterol Allergy RAPID PULSE Verified 12/14/22 13:38 ceftriaxone [From Rocephin] Allergy UNKNOWN Verified 12/14/22 13:38 duloxetine [From Cymbalta] Allergy FELT Verified 12/14/22 13:38 STRANGE escitalopram [From Lexapro] Allergy UNKOWN Verified 12/14/22 13:38 ibuprofen Allergy UNKNOWN Verified 12/14/22 13:38 Penicillins Allergy UNKNOWN Verified 12/14/22 13:38 Sulfa (Sulfonamide Allergy ALGY-Hives Verified 12/19/22 00:03 Antibiotics) INSECT STINGS Allergy EXCESSIVE Uncoded 12/14/22 13:38 SWELLING PFSH Acute PFSH: Medical History Allergic rhinitis due to pollen Anxiety and depression Atherosclerotic heart disease of [place] coronary artery without angina pectoris Coronary calcifications noted on CT imaging Chronic left lumbar radiculopathy Chronic low back pain COPD (chronic obstructive pulmonary disease) with emphysema COVID-19 (2020) Diabetes mellitus with hyperglycemia, without long-term current use of insulin Family history of ankylosing spondylitis HLA B27 (HLA B27 positive) Hyperlipidemia Hypertension Hypertriglyceridemia Hypothyroidism Polyarthralgia Primary osteoarthritis, unspecified ankle and foot Psoriasis Vitamin D deficiency, unspecified Surgical History History of appendectomy History of hysterectomy for cancer History of tubal ligation Family History Father Cancer Diabetes CAD (coronary artery disease) Brother Diabetes Daughter Diabetes CAD (coronary artery disease) Rheumatoid arthritis Other Hypertension Denies family history of Lupus Psoriasis Social History Smoking and tobacco status: former smoker Quit status (tobacco): has quit using tobacco Second hand smoke exposure: No Alcohol intake: never Substance/Drug Use: never Adopted: No Caregiver/support person: No Lives independently: Yes Household members: spouse Housing: House Marital status: Number of children: 3 service: No Current occupational status: unemployed Do you think of yourself as: Straight/Heterosexual Current gender identity: Female Vitals/I&O/Wt Last Vital Signs Temp 97.8 F 12/19/22 08:18 Pulse 74 12/19/22 08:18 Resp 17 12/19/22 08:18 BP 127/81 12/19/22 08:18 Pulse Ox 94 12/19/22 08:18 O2 Del Method Room Air 12/19/22 05:00 O2 Flow Rate 2 12/18/22 21:00 12/18/22 12/19/22 12/19/22 22:59 06:59 14:59 Intake Total 1200 / 1200 200 / 1400 200 / 200 Balance 1200 / 1200 200 / 1400 200 / 200 Weight last 48 hrs Weight 215 lb 3.2 oz Physical Exam Narrative: General : Patient is well developed , no acute distress, oriented x3 Head : Normal cephalic, a-traumatic. Ears : Pinnae and external canal are normal. Hearing is normal. Eyes : PERRLA, Sclera and injection are normal. No conjunctival discharge. Nose : Mucous membranes are without erythema. Throat : buccal mucosa is normal, gums are without significant recession or hypertrophy. Lungs : Equal chest rise bilaterally, no use of accessory muscles, trachea is midline. Cor : Rate and rhythm are normal. Abdomen : Soft, ND, mild right-sided abdominal tenderness, no g/r/m there is a seroma over her hernia repair Extremities : No edema, no cyanosis or clubbing, dorsalis pedis pulses are present bilaterally, non-tender to palpation of calves. Upper extremities are normal bilaterally. Back : non-tender to palpation, no CVA tenderness. Neuro : CN II - XII intact, Upper and lower extremities have equal and full strength Data 12/18/22 16:35 12/18/22 16:35 Micro: Microbiology 12/18/22 17:26 Blood Culture - Preliminary Blood SPECIMEN COLLECTED 12/18/22 17:18 Blood Culture - Preliminary Blood SPECIMEN COLLECTED A&P Assessment and plan (1) Gastroenteritis: Plan Patient and son were very unhappy with intermediate that they went to. She never got any medications there. I would keep her for 1 day at least for antibiotics and observation. Consult case management for placement into a new intermediate. See orders Attestations Medical Necessity Statement*: Patient requires at least 1 night in the hospital for batista and case management for intermediate placement Coding Level of Care Code 18821 Diagnoses Gastroenteritis K52.9
[2022-12-19] MEDS: magnesium hydroxide 30 mL UDC PO (11:29)
[2022-12-19] MEDS: CELEcoxib 100 mg Capsule PO (11:30)
[2022-12-19] MEDS: gabapentin 400 mg Capsule 800 MG PO ×2 (14:11→21:28)
[2022-12-19] MEDS: benzonatate 100 mg Capsule PO ×2 (14:11→21:27)
[2022-12-19] MEDS: citalopram 20 mg Tablet PO (18:04)
[2022-12-19] MEDS: amlodipine 5 mg Tablet PO (18:04)
[2022-12-19] MEDS: atenolol 50 mg Tablet 25 MG PO (18:06)
[2022-12-19] MEDS: montelukast sodium 10 mg Tablet PO (21:28)
[2022-12-19] MEDS: HYDROcodone-acetaminophen 7.5-325 mg Tablet 1 TAB PO (21:28)
[2022-12-19] MEDS: fenofibrate 145 mg Tablet PO (21:28)
[2022-12-20] MEDS: metroNIDAZOLE IV 500 MG/100 ML PREMIX 100 MG IV ×2 (03:08→11:36)
[2022-12-20 04:00] VITALS: BP 121/52; PULSE 54; RESP 16; TEMP 36.2; O2SAT 94
[2022-12-20 05:42] LABS: Basophils % 0.5 %; Eosinophils # 0.4 10^3/uL (0.0-0.8); Eosinophils % 6.8 %; Lymphocytes % 17.2 %; Mean Corpuscular HGB Conc 32.3 g/dL (30-55); Mean Corpuscular Volume 89.8 fl (85-98); Mean Platelet Volume 9.6 fL (7.4-10.4); Monocytes # 0.7 10^3/uL (0.2-0.9); Monocytes % 11.2 %; Neutrophils # 3.85 10^3/uL (1.8-7.7); Neutrophils % 63.6 %; Nucleated Red Blood Cells % 0 %; Platelet Count 329 10^3/cmm (157-399); Red Blood Count 4.79 10^6/uL (3.85-5.65); Red Cell Distribution Width 13.2 % (12.1-15.1); White Blood Count 6.05 10^3/uL (3.29-11.43)
[2022-12-20 06:08] LABS: Blood Urea Nitrogen 8 mg/dL (8-23); Calcium 8.6 mg/dL (8.5-10.5); Carbon Dioxide 26 mmol/L (22-29); Chloride 102 mmol/L (98-107); Glucose 151 mg/dL (65-115); Magnesium 2.1 mg/dL (1.7-2.3); Osmolality Calculated 283 mOsm/kg (285-295); Sodium 136 mmol/L (136-145)
[2022-12-20 06:09] LABS: Anion Gap 12.4 (5-19); Potassium 4.4 mmol/L (3.5-5.1)
[2022-12-20] MEDS: aspirin 81 mg Chew Tablet PO (07:01)
[2022-12-20] MEDS: levothyroxine 50 mcg Tablet PO (07:02)
[2022-12-20] MEDS: loratadine 10 mg Tablet PO (07:02)
[2022-12-20] MEDS: multivitamin therapeutic Tablet 1 TAB PO (07:02)
[2022-12-20] MEDS: potassium chloride ER 10 mEq Tablet PO (07:03)
[2022-12-20 07:38] VITALS: BP 186/80; PULSE 67; RESP 17; TEMP 36.4; O2SAT 95
[2022-12-20] MEDS: ciprofloxacin 400 MG/200 ML PREMIX 200 MG IV (08:11)
[2022-12-20] MEDS: atenolol 50 mg Tablet 25 MG PO (08:16)
[2022-12-20] MEDS: gabapentin 400 mg Capsule 800 MG PO ×2 (08:17→14:25)
[2022-12-20] MEDS: benzonatate 100 mg Capsule PO ×2 (08:17→14:25)
[2022-12-20] MEDS: citalopram 20 mg Tablet PO (08:17)
[2022-12-20] MEDS: CELEcoxib 100 mg Capsule PO (08:17)
[2022-12-20 11:28] VITALS: BP 153/84; PULSE 58; RESP 18; TEMP 36.4; O2SAT 96
--- NOTE | 2022-12-20 13:43 | P.DS_ITS ---
Discharge Providers Date of Admission: 12/19/22 11:14 Date of Discharge: December 20, 2022 Attending Provider at Admission: Gerald Gatica DO Attending Provider at Discharge: Gerald Gatica DO Primary Care Provider: RANDY Covarrubias Diagnoses at Discharge Discharge Diagnosis (1) Gastroenteritis: Status: Resolved Reason for Visit Reason for Visit: abd pain Hospital Course Hospital Course Patient was admitted to the hospital for the second time following laparoscopic repair of an incisional hernia that was incarcerated with bowel and associated bowel obstruction due to abdominal pain and dissatisfaction with the skilled nursing she was at. She reports that she did not get any medication when she was at the skilled nursing. The son was quite upset. CT the abdomen pelvis shows a seroma but was read as possible infection and previously read as possible recurrence. There is no recurrence. Patient's abdomen is nontender. She has been discharged home in good condition with home health referral Physical Exam Narrative: General : Patient is well developed , no acute distress, oriented x3 Head : Normal cephalic, a-traumatic. Ears : Pinnae and external canal are normal. Hearing is normal. Eyes : PERRLA, Sclera and injection are normal. No conjunctival discharge. Nose : Mucous membranes are without erythema. Throat : buccal mucosa is normal, gums are without significant recession or hypertrophy. Lungs : Equal chest rise bilaterally, no use of accessory muscles, trachea is midline. Cor : Rate and rhythm are normal. Abdomen : Soft, ND, NT, there is an expected seroma over the hernia repair Extremities : No edema, no cyanosis or clubbing, dorsalis pedis pulses are present bilaterally, non-tender to palpation of calves. Upper extremities are normal bilaterally. Back : non-tender to palpation, no CVA tenderness. Neuro : CN II - XII intact, Upper and lower extremities have equal and full strength Discharge Data Studies Completed and Pending Completed Studies During Hospitalization Category Date Time Status CT abdomen pelvis w con* [id number] Stat Cat Scan 12/18/22 16:49 Completed XR chest 1V portable [id number] Stat Exams 12/18/22 16:50 Completed Pending at discharge Category Date Time Status BMP [Basic Metabolic Panel] AM LABS Lab 12/21/22 04:00 Ordered BMP [Basic Metabolic Panel] AM LABS Lab 12/22/22 04:00 Ordered Blood Culture Stat Lab 12/18/22 17:26 Results CBC Auto Diff [Complete Blood Count w/Auto] AM LABS Lab 12/21/22 04:00 Ordered CBC Auto Diff [Complete Blood Count w/Auto] AM LABS Lab 12/22/22 04:00 Ordered Magnesium AM LABS Lab 12/21/22 04:00 Ordered Magnesium AM LABS Lab 12/22/22 04:00 Ordered Radiology Impressions Abdomen/Pelvis CT 12/18/22 16:49 IMPRESSION: 1. Interval increase in size of the umbilical hernia which contains fluid and air suggesting infectious/ inflammatory process. Recommend clinical correlation. 2. Nonobstructing distal left 3.9 mm ureteral stone, there is mild left hydroureter noted. 3. Dilation the bowel loops pelvis, this is suggestive of an enteritis. 4. Possible UTI. COMMENTS: Consistent with the [employer]'s Incidental Findings Committee white paper (J Am Carrie Radiol 2018): Any incidental renal lesion less than 1 cm or classified as too small to characterize, or any incidental cystic renal lesion characterized as simple-appearing, is likely benign. No follow-up imaging is recommended for these lesions per consensus recommendations based on imaging criteria. Chest X-Ray 12/18/22 16:50 IMPRESSION: No acute findings. Laboratory Results WBC 6.05 10^3/uL (3.29-11.43) 12/20/22 04:40 RBC 4.79 10^6/uL (3.85-5.65) 12/20/22 04:40 Hgb 13.90 g/dL (11.27-16.99) 12/20/22 04:40 Hct 43.0 % (36-47) 12/20/22 04:40 MCV 89.8 fl (85-98) 12/20/22 04:40 MCH 29.0 pg (27-33) 12/20/22 04:40 MCHC 32.3 g/dL (30-55) 12/20/22 04:40 RDW 13.2 % (12.1-15.1) 12/20/22 04:40 Plt Count 329 10^3/cmm (157-399) 12/20/22 04:40 MPV 9.6 fL (7.4-10.4) 12/20/22 04:40 Neut % (Auto) 63.6 % 12/20/22 04:40 Lymph % (Auto) 17.2 % 12/20/22 04:40 [place] % (Auto) 11.2 % 12/20/22 04:40 Eos % (Auto) 6.8 % 12/20/22 04:40 Baso % (Auto) 0.5 % 12/20/22 04:40 Neut # (Auto) 3.85 10^3/uL (1.8-7.7) 12/20/22 04:40 Lymph # (Auto) 1.0 10^3/uL (0.8-4.8) 12/20/22 04:40 [place] # (Auto) 0.7 10^3/uL (0.2-0.9) 12/20/22 04:40 Eos # (Auto) 0.4 10^3/uL (0.0-0.8) 12/20/22 04:40 Baso # (Auto) 0.0 10^3/uL (0.0-0.1) 12/20/22 04:40 Nucleated RBC % (auto) 0 % 12/20/22 04:40 Nucleated RBCs # 0.0 /100WBC 12/20/22 04:40 Sodium 136 mmol/L (136-145) 12/20/22 04:40 Potassium 4.4 mmol/L (3.5-5.1) 12/20/22 04:40 Chloride 102 mmol/L (98-107) 12/20/22 04:40 Carbon Dioxide 26 mmol/L (22-29) 12/20/22 04:40 Anion Gap 12.4 (5-19) 12/20/22 04:40 BUN 8 mg/dL (8-23) 12/20/22 04:40 Creatinine 0.4 mg/dL (0.5-0.9) L 12/20/22 04:40 GFR Calculation Not Reportable 12/20/22 04:40 Glucose 151 mg/dL (65-115) H 12/20/22 04:40 Calculated Osmolality 283 mOsm/kg (285-295) L 12/20/22 04:40 Lactic Acid 1.5 mmol/L (0.5-2.2) 12/18/22 17:18 Calcium 8.6 mg/dL (8.5-10.5) 12/20/22 04:40 Magnesium 2.1 mg/dL (1.7-2.3) 12/20/22 04:40 Total Bilirubin 0.6 mg/dL (0.15-1.2) 12/18/22 16:35 AST 24 U/L (0-32) 12/18/22 16:35 ALT 17 U/L (0-33) 12/18/22 16:35 Alkaline Phosphatase 81 U/L (35-105) 12/18/22 16:35 Creatine Kinase 43 U/L (26-192) 12/18/22 16:35 Total Protein 7.1 g/dL (6.6-8.7) 12/18/22 16:35 Albumin 3.8 g/dL (3.5-5.2) 12/18/22 16:35 Globulin 3.3 g/dL (1.3-4.6) 12/18/22 16:35 Lipase 90 U/L (13-60) H 12/18/22 16:35 Urine Color Yellow (Yellow) 12/18/22 17:44 Urine Appearance Cloudy (CLEAR) A 12/18/22 17:44 Urine pH 6 (5-7) 12/18/22 17:44 Ur Specific [place] 1.020 (1.005-1.030) 12/18/22 17:44 Urine Protein Neg (Negative) 12/18/22 17:44 Urine Glucose (UA) Norm (Normal) 12/18/22 17:44 Urine Ketones Negative (Negative) 12/18/22 17:44 Urine Blood Neg (Negative) 12/18/22 17:44 Urine Nitrate Negative (Negative) 12/18/22 17:44 Urine Bilirubin 1+ (Negative) H 12/18/22 17:44 Urine Urobilinogen 4 mg/dL (Negative) H 12/18/22 17:44 Ur Leukocyte Esterase Negative (Negative) 12/18/22 17:44 Urine RBC 0-4 /hpf (0-2) H 12/18/22 17:44 Urine WBC 0-4 /hpf (0-5) H 12/18/22 17:44 Ur Squamous Epith Cells 0-4 /hpf (0-5) H 12/18/22 17:44 Amorphous Sediment Not Reportable 12/18/22 17:44 Urine Bacteria Trace /hpf (NONE) 12/18/22 17:44 Urine Mucus 4+ /hpf 12/18/22 17:44 Procedures Performed None Vitals Last Vital Signs Temp 97.5 F L 12/20/22 11:28 Pulse 58 L 12/20/22 11:28 Resp 18 12/20/22 11:28 BP 153/84 12/20/22 11:28 Pulse Ox 96 12/20/22 11:28 O2 Del Method Room Air 12/19/22 20:31 O2 Flow Rate 2 12/18/22 21:00 Discharge Plan Discharge Patient Disposition: Home Health Service Condition: Stable Prescriptions: New levofloxacin 500 mg tablet 500 mg PO Q24H 7 Days Qty: 7 0RF Continued Centrum Silver 400-250 mcg tablet,chewable 1 tab PO QAM aspirin 81 mg tablet,chewable 81 mg PO QAM citalopram [Celexa] 20 mg tablet 20 mg PO BID Qty: 60 2RF gabapentin 800 mg tablet 800 mg PO TID Qty: 90 2RF hydroxyzine pamoate 25 mg capsule 25 mg PO TID PRN (Reason: anxiety) Qty: 90 2RF (DME) blood-glucose meter [OneTouch Ultra2 Meter] Kit See Rx Instructions .Route Qty: 1 0RF Rx Instructions: As directed (DME) OneTouch Ultra Test Strip See Rx Instructions .Route Qty: 100 5RF Rx Instructions: one daily celecoxib 100 mg capsule 100 mg PO DAILY levalbuterol HCl 0.63 mg/3 mL solution for nebulization 0.63 mg INHALATION TID PRN (Reason: unknown) potassium chloride 10 mEq capsule, extended release 10 meq PO QAM clobetasol 0.05 % cream 1 applic topical BID PRN (Reason: unknown) amlodipine 5 mg tablet 5 mg PO QPM leflunomide 20 mg tablet 20 mg PO QAM Hold Instructions: Resume on 12/18/22. levothyroxine 50 mcg tablet 50 mcg PO QAM budesonide [Pulmicort] 0.5 mg/2 mL suspension for nebulization 0.5 mg inhalation BID PRN (Reason: unknown) montelukast [Singulair] 10 mg tablet 10 mg PO BEDTIME ergocalciferol (vitamin D2) 1,250 mcg (50,000 unit) capsule 1,250 mcg PO Q7D Rx Instructions: on loratadine [Claritin] 10 mg tablet 10 mg PO QAM fenofibrate nanocrystallized [Tricor] 145 mg tablet 145 mg PO BEDTIME budesonide-formoterol [Symbicort] 80-4.5 mcg/actuation HFA aerosol inhaler 2 puff inhalation Q12H PRN (Reason: unknown) Ozempic 1 mg/dose (4 mg/3 mL) pen injector 1 mg SUBCUT Q7D Rx Instructions: on wed benzonatate 100 mg Capsule 100 mg PO TID Qty: 10 0RF atenolol 50 mg tablet 25 mg PO BID Qty: 60 2RF hydrocodone-acetaminophen 7.5-325 mg Tablet 1 tab PO Q6H PRN (Reason: Moderate Pain) Qty: 10 0RF Discharge Orders: Discharge Order (Routine); Ordered 12/20/22 Ordered By: Gerald Gatica Referrals: Karina Funez FNP-C [Primary Care Provider] - 4-7 days Discharge Diet: Advance as tolerated Discharge Activity: Resume usual activity and Limit activity as instructed Patient Instructions: Opioid Safety Activity Restrictions/Additional Instructions: No lifting, pushing or pulling over 15 pounds for 6 weeks. Do not soak incisions underwater for 2 weeks. Shower daily. Let the glue fall off on its own. Discharge Attestations Time Spent in Discharge Care*: less than 30 min Status at Discharge: Cognitive status at discharge: cognitively intact , Behavioral status at discharge: cooperative , Quality Metrics Clinical Quality Measures [ No reported AMI, CVA or VTE this stay] Coding Level of Care Code Acute Code for Chg Fwd Diagnoses Gastroenteritis K52.9
[2022-12-20 16:04] VITALS: BP 153/84; PULSE 58; RESP 18; TEMP 36.4; O2SAT 96
== END 2022-12-20 16:06 | disposition home health service (06) ==
LOC: ER 18:22 → MEDSURG 21:28
PROVIDERS: Family Medicine; Admitting Provider Surgery; Emergency Provider Emergency Medicine; PCP Nurse Practitioner; Visit Provider Surgery
DX: K52.9 Noninfective gastroenteritis and colitis, unspecified (principal); J44.9 Chronic obstructive pulmonary disease, unspecified; Z86.16 Personal history of COVID-19; E13.65 Other specified diabetes mellitus with hyperglycemia; E78.5 Hyperlipidemia, unspecified; I10 Essential (primary) hypertension; E03.9 Hypothyroidism, unspecified; Z87.891 Personal history of nicotine dependence
CPT/HCPCS: 36415; 71045; 74177; 80048; 80053; 81001; 82550; 83605; 83690; 83735; 85025; 87040; 96365; 96366; 96367; 96375; 96376; 99285; G0378; J0744; J1170; J2270; J2405; J3490; J7030; Q9967

== ENCOUNTER → 2023-01-12 14:52 | Outpatient (BNVA) | payer MEDICARE, MEDICAID, SELFPAY | PROVIDERS: PCP Nurse Practitioner; Visit Provider Surgery | DX: Z98.890 Other specified postprocedural states (principal); Z87.19 Personal history of other diseases of the digestive system; R19.7 Diarrhea, unspecified | CPT/HCPCS: 99024 ==

== ENCOUNTER → 2023-01-13 14:18 | Outpatient (BNVA) | payer MEDICARE, MEDICAID, SELFPAY | PROVIDERS: PCP Nurse Practitioner; Visit Provider Surgery | DX: R19.7 Diarrhea, unspecified (principal) | CPT/HCPCS: 87075; 87324; 87449 ==

== ENCOUNTER → 2023-02-17 16:05 | Outpatient (BNVA) | payer MEDICARE, MEDICAID, SELFPAY | PROVIDERS: PCP Nurse Practitioner; Visit Provider Nurse Practitioner | DX: R19.7 Diarrhea, unspecified (principal); E11.65 Type 2 diabetes mellitus with hyperglycemia | CPT/HCPCS: 80053; 83036; 85025 ==

== ENCOUNTER → 2023-05-12 14:45 | Outpatient (BNVA) | payer MEDICARE, MEDICAID, SELFPAY | PROVIDERS: PCP Nurse Practitioner; Visit Provider Nurse Practitioner | DX: E11.9 Type 2 diabetes mellitus without complications (principal); E55.9 Vitamin D deficiency, unspecified; I10 Essential (primary) hypertension | CPT/HCPCS: 80053; 80061; 81000; 82306; 82607; 83036; 84443 ==

== ENCOUNTER → 2023-06-29 14:11 | Outpatient (BNVA) | payer MEDICARE, MEDICAID, SELFPAY | PROVIDERS: PCP Nurse Practitioner; Visit Provider Nurse Practitioner | DX: I10 Essential (primary) hypertension; E11.65 Type 2 diabetes mellitus with hyperglycemia; R63.0 Anorexia | CPT/HCPCS: 80053; 82607; 83036; 84443; 85025 ==

== ENCOUNTER → 2023-09-14 15:11 | Outpatient (BNVA) | payer MEDICARE, MEDICAID, SELFPAY | PROVIDERS: PCP Nurse Practitioner; Visit Provider Nurse Practitioner | DX: E11.9 Type 2 diabetes mellitus without complications (principal); E03.9 Hypothyroidism, unspecified | CPT/HCPCS: 80053; 80061; 82607; 83036; 84443 ==

== ENCOUNTER 2023-12-02 14:20 | Outpatient (CLI) | payer MEDICARE, MEDICAID, SELFPAY ==
--- NOTE | 2023-12-02 14:25 | MM_ITS ---
WS: [id number] BILATERAL SCREENING DIGITAL TOMOSYNTHESIS MAMMOGRAM WITH CAD HISTORY: SCREENING COMPARISON: 11/06/2022, 09/04/2021 Bilateral CC and MLO views with tomosynthesis and synthetic mammography submitted. Computer aided det ection analyzed. Breast composition: There are scattered areas of fibroglandular density. No suspicious masses, microc alcifications or architectural distortion. Numerous calcifications scattered throughout the RIGHT radha ast. There are a few benign calcifications in the LEFT breast. MM/[place] [id number] IMPRESSION: BI-RADS: 2-Benign FOLLOW UP: 1 Year Follow-up
== END 2023-12-02 14:21 | disposition home or self-care (01) ==
LOC: RAD 14:21
PROVIDERS: PCP Nurse Practitioner; Visit Provider Nurse Practitioner
DX: Z12.31 Encounter for screening mammogram for malignant neoplasm of breast (principal)
CPT/HCPCS: 77063; 77067

== ENCOUNTER → 2023-12-06 13:38 | Outpatient (BNVA) | payer MEDICARE, MEDICAID, SELFPAY | PROVIDERS: PCP Nurse Practitioner; Visit Provider Nurse Practitioner | DX: R39.9 Unspecified symptoms and signs involving the genitourinary system (principal) | CPT/HCPCS: 81000 ==

== ENCOUNTER 2023-12-10 06:00 | Outpatient (RCR) | payer MEDICARE, MEDICAID, SELFPAY | END 2023-12-18 18:00 | disposition home or self-care (01) | LOC: TPT 06:00 | PROVIDERS: Visit Provider Nurse Practitioner | DX: M25.562 Pain in left knee (principal) | CPT/HCPCS: 97110; 97162 ==

== ENCOUNTER 2023-12-19 06:00 | Outpatient (RCR) | payer MEDICARE, MEDICAID, SELFPAY | END 2024-01-17 23:59 | disposition home or self-care (01) | LOC: TPT 06:00 | PROVIDERS: PCP Nurse Practitioner; Visit Provider Nurse Practitioner | DX: M25.562 Pain in left knee (principal) | CPT/HCPCS: 97110 ==

== ENCOUNTER 2023-12-23 12:49 | Outpatient (CLI) | payer MEDICARE, MEDICAID, SELFPAY ==
--- NOTE | 2023-12-23 13:05 | XR_ITS ---
WS: [email or web address] Examination: XR cervical spine 3V* [id number] Reason for Exam: R29.898 - Other symptoms and signs involving the musculos... Date: 12/23/2023 Comparison: None. Findings: The MARIA and the C1-2 relationship are intact. There is no prevertebral swelling. There is no anterior wedging or compression. There is no subluxation Degenerative disc disease is identified dominant at C5-6 and C6-7. There is disc space narrowing with anterior posterior osteophytes. XR/XR cervical spine 3V* [id number] Impression: There is no compression or subluxation There is dominant C5-6 and C6-7 degenerative change.
--- NOTE | 2023-12-23 13:06 | CT_ITS ---
WS: [id number] CT HEAD NONCONTRAST HISTORY: MUSCLE WEAKNESS TECHNIQUE: Contiguous axial imaging performed through the brain in 2.5 mm imaging. Bone and soft tiss ue windows. Sagittal and coronal reformats reviewed. All CT scans at [facility] use at least one of these dose optimization techniques: automated exposure control; mA and/or kV adjustment per pa tient size (includes targeted exams where dose is matched to clinical indication); or iterative recon struction. DLP: 1166.77 mGy.cm COMPARISON: None available. No acute intracranial hemorrhage, midline shift or mass effect. Mild atrophy and mild small vessel ischemic disease. No infarct. Ventricles: Normal size with no hydrocephalus. No inferior displacement the cerebellar tonsils. Paranasal sinuses: As visualized are clear. Mastoid air cells: Well pneumatized. Calvarium and scalp: Skull is intact with no soft tissue edema or swelling. CT/CT head wo con* [id number] IMPRESSION: 1. No acute intracranial hemorrhage or edema. 2. Mild volume loss and small vessel disease. 3. No prior infarct.
== END 2023-12-23 12:50 | disposition home or self-care (01) ==
LOC: RAD 12:52
PROVIDERS: PCP Nurse Practitioner; Visit Provider Nurse Practitioner
DX: M50.322 Other cervical disc degeneration at C5-C6 level; M50.323 Other cervical disc degeneration at C6-C7 level; M62.81 Muscle weakness (generalized); R29.898 Other symptoms and signs involving the musculoskeletal system
CPT/HCPCS: 70450; 72040; 81000

== ENCOUNTER 2024-01-18 06:00 | Outpatient (RCR) | payer MEDICARE, MEDICAID, SELFPAY | END 2024-02-17 23:59 | disposition home or self-care (01) | LOC: TPT 06:00 | PROVIDERS: PCP Nurse Practitioner; Visit Provider Nurse Practitioner | DX: M25.562 Pain in left knee (principal) | CPT/HCPCS: 97110 ==

== ENCOUNTER 2024-02-18 06:00 | Outpatient (RCR) | payer MEDICARE, MEDICAID, SELFPAY | END 2024-03-18 23:59 | disposition home or self-care (01) | LOC: TPT 06:00 | PROVIDERS: PCP Nurse Practitioner; Visit Provider Nurse Practitioner | DX: M25.562 Pain in left knee (principal) | CPT/HCPCS: 97110 ==

== ENCOUNTER → 2024-02-28 15:32 | Outpatient (BNVA) | payer MEDICARE, MEDICAID, SELFPAY | PROVIDERS: PCP Nurse Practitioner; Visit Provider Internal Medicine Cardiovascular Disease | DX: R07.9 Chest pain, unspecified (principal); R00.1 Bradycardia, unspecified | CPT/HCPCS: 93005 ==

== ENCOUNTER → 2024-03-09 15:38 | Outpatient (BNVA) | payer MEDICARE, MEDICAID, SELFPAY | PROVIDERS: PCP Nurse Practitioner; Visit Provider Nurse Practitioner | DX: E11.65 Type 2 diabetes mellitus with hyperglycemia (principal); E03.9 Hypothyroidism, unspecified; E55.9 Vitamin D deficiency, unspecified; I10 Essential (primary) hypertension; E78.5 Hyperlipidemia, unspecified | CPT/HCPCS: 80053; 80061; 82306; 83036; 84443 ==

== ENCOUNTER → 2024-03-15 14:24 | Outpatient (BNVA) | payer MEDICARE, MEDICAID, SELFPAY | PROVIDERS: PCP Nurse Practitioner; Visit Provider Internal Medicine Rheumatology | DX: M21.20 Flexion deformity, unspecified site (principal); M25.50 Pain in unspecified joint; Z15.89 Genetic susceptibility to other disease; L40.9 Psoriasis, unspecified | CPT/HCPCS: 99214 ==

== ENCOUNTER 2024-03-19 06:00 | Outpatient (RCR) | payer MEDICARE, MEDICAID, SELFPAY | END 2024-03-24 23:59 | disposition home or self-care (01) | LOC: TPT 06:00 | PROVIDERS: PCP Nurse Practitioner; Visit Provider Nurse Practitioner | DX: M25.562 Pain in left knee (principal) | CPT/HCPCS: 97110 ==

== ENCOUNTER → 2024-06-13 14:48 | Outpatient (BNVA) | payer MEDICARE, MEDICAID, SELFPAY | PROVIDERS: PCP Nurse Practitioner; Visit Provider Nurse Practitioner | DX: E78.00 Pure hypercholesterolemia, unspecified (principal); E11.65 Type 2 diabetes mellitus with hyperglycemia; E03.9 Hypothyroidism, unspecified; E55.9 Vitamin D deficiency, unspecified | CPT/HCPCS: 80053; 80061; 82306; 83036 ==

== ENCOUNTER → 2024-07-20 13:03 | Outpatient (BNVA) | payer MEDICARE, MEDICAID, SELFPAY | PROVIDERS: PCP Nurse Practitioner; Visit Provider Internal Medicine Rheumatology | DX: M25.50 Pain in unspecified joint (principal); Z15.89 Genetic susceptibility to other disease; L40.9 Psoriasis, unspecified | CPT/HCPCS: 99214 ==

== ENCOUNTER 2024-08-10 14:54 | Outpatient (RCR) | payer MEDICARE, MEDICAID, SELFPAY | END 2024-08-16 23:59 | disposition home or self-care (01) | LOC: SOT 14:54 | PROVIDERS: Visit Provider Orthopaedic Surgery | DX: M19.042 Primary osteoarthritis, left hand (principal) | CPT/HCPCS: 97022; 97110; 97140; 97165; 97530 ==

== ENCOUNTER 2024-08-17 06:00 | Outpatient (RCR) | payer MEDICARE, MEDICAID, SELFPAY | END 2024-09-16 23:59 | disposition home or self-care (01) | LOC: SOT 06:00 | PROVIDERS: PCP Nurse Practitioner; Visit Provider Orthopaedic Surgery | DX: M19.042 Primary osteoarthritis, left hand (principal) | CPT/HCPCS: 97022; 97110; 97140 ==

== ENCOUNTER → 2024-08-28 15:43 | Outpatient (BNVA) | payer MEDICARE, MEDICAID, SELFPAY | PROVIDERS: PCP Nurse Practitioner; Visit Provider Internal Medicine Cardiovascular Disease | DX: I10 Essential (primary) hypertension (principal); Z79.82 Long term (current) use of aspirin; Z87.891 Personal history of nicotine dependence; Z91.018 Allergy to other foods | CPT/HCPCS: 99214 ==

== ENCOUNTER → 2024-08-30 13:58 | Outpatient (BNVA) | payer MEDICARE, MEDICAID, SELFPAY | PROVIDERS: PCP Nurse Practitioner; Visit Provider Nurse Practitioner | DX: E03.9 Hypothyroidism, unspecified (principal); E11.65 Type 2 diabetes mellitus with hyperglycemia; E55.9 Vitamin D deficiency, unspecified | CPT/HCPCS: 80053; 82306; 82607; 83036; 84425; 84443 ==

== ENCOUNTER → 2024-10-11 12:34 | Outpatient (BNVA) | payer MEDICARE, MEDICAID, SELFPAY | PROVIDERS: PCP Nurse Practitioner; Visit Provider Internal Medicine Rheumatology | DX: M25.50 Pain in unspecified joint (principal); Z15.89 Genetic susceptibility to other disease; L40.9 Psoriasis, unspecified | CPT/HCPCS: 99214 ==

== ENCOUNTER → 2024-11-21 14:00 | Outpatient (BNVA) | payer MEDICARE, MEDICAID, SELFPAY | PROVIDERS: PCP Nurse Practitioner; Visit Provider Nurse Practitioner | DX: E03.9 Hypothyroidism, unspecified (principal); E55.9 Vitamin D deficiency, unspecified | CPT/HCPCS: 80053; 82306; 82607 ==

== ENCOUNTER 2024-12-04 12:29 | Outpatient (CLI) | payer OTHER, MEDICAID, SELFPAY ==
--- NOTE | 2024-12-04 13:00 | MM_ITS ---
WS: [email or web address] BILATERAL 3D TOMOSYNTHESIS DIGITAL SCREENING MAMMOGRAPHY WITH CAD CLINICAL INFORMATION: Z12.31 - Encounter for screening mammogram for malignant ... HISTORY: Screening mammogram. No current complaints. COMPARISON: 12/02/2023 TECHNIQUE: Bilateral CC and MLO views. FINDINGS: Scattered fibroglandular densities bilaterally. No suspicious focal mass, asymmetry, calcifications, or architectural distortion. No evidence of malignancy. Vascular calcifications. Stable punctate clustered calcifications RIGHT breast. MM/MM [facility] tomosynthesis [id number] IMPRESSION: DENSITY: There are scattered areas of fibroglandular density. BI-RADS: 2 - Benign. FOLLOW UP: 1 Year Follow-up Recommend return to annual screening mammography.
--- NOTE | 2024-12-04 13:30 | XR_ITS ---
WS: [email or web address] SCREENING DEXA SCAN [facility] CLINICAL INFORMATION: Z78.0 - Asymptomatic menopausal state FINDINGS: The L1-L4 bone mineral density measures 1.496 g/cm2. This corresponds to a T score score of 2.6 and Z score of 3.7. Left femoral neck bone mineral density measures 0.992 g/cm2. This corresponds to a T score of -0.1 and Z score of 1.0. Right femoral neck bone mineral density measures 0.985 g/cm2. This corresponds to a T score -0.2of and Z score of 1.0. Mean femoral neck bone mineral density measures 0.988 g/cm2. This corresponds to a T score of -0.2 and Z score of 1.0. XR/XR DEXA axial skeleton* [id number] IMPRESSION: Normal bone mineralization. Patient's FRAX calculated 10 year probability for major osteoporotic fracture i s 12.9% and osteoporotic hip fracture is 1.566%.
== END 2024-12-04 12:30 | disposition home or self-care (01) ==
LOC: RAD 12:30
PROVIDERS: PCP Nurse Practitioner; Visit Provider Nurse Practitioner
DX: Z12.31 Encounter for screening mammogram for malignant neoplasm of breast (principal); Z13.820 Encounter for screening for osteoporosis; Z78.0 Asymptomatic menopausal state
CPT/HCPCS: 77063; 77067; 77080

== ENCOUNTER → 2025-02-26 13:08 | Outpatient (BNVA) | payer OTHER, MEDICAID, SELFPAY | PROVIDERS: PCP Nurse Practitioner; Visit Provider Internal Medicine Rheumatology | DX: M13.0 Polyarthritis, unspecified (principal); Z15.89 Genetic susceptibility to other disease; L40.8 Other psoriasis; Z87.19 Personal history of other diseases of the digestive system; Z98.890 Other specified postprocedural states | CPT/HCPCS: 99214 ==